=== PATIENT | male | born 1980 | race Caucasian/White ===

== ENCOUNTER 2018-01-10 07:52 | Inpatient (IN) | payer OTHER ==
[2018-01-10] VITALS (10 sets, daily range): BP systolic 104–137; BP diastolic 59–87; PULSE 66–92; TEMP 35.8–36.9; O2SAT 92–97; Ht 182.9 cm; Wt 109.5 kg
[~2018-01-10] VITALS: Ht 182.9 cm; Wt 109.5 kg
[~2018-01-10 07:52] MED LIST: PIPERACILL/TAZOBAC CONSULT ACTIVE SCH
[2018-01-10] MEDS ORDERED: ONDANSETRON INJ 2 MG/ML 2 ML VIAL IV STA (08:03)
[2018-01-10] MEDS ORDERED: HYDROmorphone INJ 1 MG/ML SYR IV STA ×2 (08:03→10:13)
[2018-01-10] MEDS ORDERED: SODIUM CHLORIDE 0.9% 1000ML 1,000 ML IV STA (08:03)
[2018-01-10] MEDS ORDERED: KETOROLAC TROMETHAMINE 30 MG/ML VIAL IV STA (08:03)
--- NOTE | 2018-01-10 08:10 | EMERGENCY ROOM VISIT NOTE ---
History Report prepared by Corie: Edwin Ho Under the Supervision of: Dr. Tyrone Jolley M.D. First contact with patient: 07:55 Chief Complaint: ABDOMINAL PAIN Stated Complaint: ACUTE ABD PAIN History of Present Illness The patient is a 37 year old male who presents to the Emergency Room with complaints of intermittent right lower quadrant abdominal pain since last night. The patient states that he is not nauseous and there is no pain in his back. He does not have any history of kidney stones. Source of History: patient, spouse/significant other Onset: Last night Position: abdomen (RLQ) Timing: intermittent Associated Symptoms: No nausea, No back pain Review of Systems See HPI for pertinent positives & negatives. A total of 10 systems reviewed and were otherwise negative. Past Medical & Surgical No significant past medical/surgical histories. Family History Cancer Diabetes mellitus Hypertension Social History Smoking Status: Never Smoker Marital Status: Housing Status: lives with family Occupation Status: employed Current/Historical Medications No Active Prescriptions or Reported Meds Allergies Coded Allergies: No Known Allergies (Unverified , 01/10/18) Physical Exam Vital Signs Date Time Temp Pulse Resp B/P (MAP) Pulse Ox O2 Delivery O2 Flow Rate FiO2 01/10/18 12:56 36.7 69 18 162/99 97 01/10/18 11:28 69 18 97 Room Air 01/10/18 10:32 68 17 01/10/18 10:27 78 13 01/10/18 10:22 81 17 01/10/18 10:19 70 01/10/18 09:40 36.7 76 18 162/99 97 Room Air 01/10/18 09:34 162/99 01/10/18 07:55 36.7 76 18 139/96 97 Room Air Physical Exam GENERAL: Awake, alert, well-appearing, in no acute distress HENT: Normocephalic, atraumatic. Oropharynx unremarkable. EYES: Normal conjunctiva. Sclera non-icteric. NECK: Supple. No nuchal rigidity. FROM. No JVD. RESPIRATORY: Clear to auscultation. CARDIAC: Regular rate, normal rhythm. Extremities warm and well perfused. Pulses equal. ABDOMEN: Soft, non-distended. No tenderness to palpation. No rebound or guarding. No masses. RECTAL: Deferred. MUSCULOSKELETAL: Chest examination reveals no tenderness. The back is symmetrical on inspection without obvious abnormality. There is no CVA tenderness to palpation. No joint edema. LOWER EXTREMITIES: Calves are equal size bilaterally and non-tender. No edema. No discoloration. NEURO: Normal sensorium. No sensory or motor deficits noted. SKIN: No rash or jaundice noted. Medical Decision & Procedures ER Provider Diagnostic Interpretation: Radiology results as stated below per my review and radiologist interpretation: ADDENDUM As reported in the findings, the small linear radiopaque density in the mid abdomen is metallic and is partially within the lumen and partially extraluminal. No surrounding inflammatory change, fluid, or free air. This is consistent with a foreign body. Given that the patient has no history of surgery, this is consistent with an ingested metallic foreign body. This measures 14 mm. This was discussed with the PA from the ER at 12:03 PM in the reading room. Electronically signed by: Jae Flynn M.D. 01/10/2018 12:03 PM Dictated Date/Time: 01/10/2018 12:02 PM ORIGINAL REPORT ABD/PELVIS IV CONTRAST ONLY CLINICAL HISTORY: 37 years-old Male presenting with Pt c/o RLQ abd pain. TECHNIQUE: Multidetector CT of the abdomen and pelvis was performed after the administration of intravenous contrast. IV contrast: 92 mL of Optiray 320. A dose lowering technique was used consistent with the principles of ALARA (as low as reasonably achievable). COMPARISON: Renal ultrasound and plain radiograph performed earlier the same day. CT DOSE (mGy.cm): The estimated cumulative dose is 669.79 mGy.cm. FINDINGS: Hr Analyst topogram: Unremarkable. Lung bases: Minimal basilar opacities, likely atelectasis. Normal heart size. No pericardial or pleural effusion. Liver: Congenital hypoplasia of the medial segments of the left hepatic lobe. Density suggestive of hepatic steatosis. No focal lesion. Patent hepatic vasculature. Biliary: No intrahepatic or extrahepatic biliary ductal dilatation. Normal gallbladder. Pancreas: Mild parenchymal atrophy. Spleen: Normal. Adrenal glands: Normal. Kidneys and ureters: Normal. No hydronephrosis. Bladder: Incompletely evaluated secondary to underdistention. Pelvic organs: Prostate and seminal vesicles normal. Bowel: Normal appendix. No bowel obstruction. Peritoneal cavity: No free fluid or intraperitoneal gas. Linear radiodensity in the mid abdomen (series 3 image 319), indeterminate and possibly postsurgical. Lymph nodes: No enlarged lymph nodes in the abdomen or pelvis. Vasculature: Aorta and IVC patent and normal in caliber. Abdominal wall: Small fat-containing umbilical hernia. Minimal infiltration could suggest strangulation. Musculoskeletal: Normal. IMPRESSION: 1. Hepatic steatosis. Correlate with liver function tests to exclude steatohepatitis as a cause for abdominal pain. 2. No evidence of appendicitis. 3. Small fat-containing umbilical hernia. Minimal infiltration could suggest strangulation. Correlate clinically. Electronically signed by: Jae Flynn M.D. 01/10/2018 11:09 AM KUB CLINICAL HISTORY: Right-sided flank pain COMPARISON STUDY: No previous studies for comparison. FINDINGS: There is no pathologic bowel dilatation. There are no calcifications suspicious for renal calculi. Pelvic basin calcifications likely represent phleboliths. A 7 mm opacity projected inferior to the right L1 transverse process, likely represents a summation with enteric contents. IMPRESSION: 1. No evidence of pathologic bowel dilatation 2. No definite urinary tract calculi identified on conventional radiographic imaging Electronically signed by: Luca Carmona M.D. 01/10/2018 8:41 AM Dictated Date/Time: 01/10/2018 8:40 AM (RENAL)RETROPERITON COMP CLINICAL HISTORY: 37 years-old Male presenting with Pt c/o RLQ abd pain. TECHNIQUE: Real-time grayscale and limited color Doppler ultrasound imaging of the kidneys and bladder was performed. COMPARISON: Plain radiograph performed earlier the same day. FINDINGS: Right kidney: Normal echogenicity of renal parenchyma. Right kidney measures 11.5 cm. No hydronephrosis. No convincing evidence of calculus or mass. Left kidney: Normal echogenicity of renal parenchyma. Left kidney measures 11.1 cm. No hydronephrosis. No convincing evidence of calculus or mass. Bladder: Mild circumferential bladder wall thickening likely due to underdistention. Bilateral ureteral jets present. Other: Hyperechogenicity of the liver suggests hepatic steatosis. IMPRESSION: 1. Normal renal ultrasound. No obstruction. 2. Hepatic steatosis. Correlate with liver function tests to exclude steatohepatitis as a cause for abdominal pain. Electronically signed by: Jae Flynn M.D. 01/10/2018 9:57 AM Dictated Date/Time: 01/10/2018 9:55 AM Laboratory Results 01/10/18 08:10 Red Blood Count 5.36, Mean Corpuscular Volume 80.2, Mean Corpuscular Hemoglobin 29.1, Mean Corpuscular Hemoglobin Concent 36.3, Mean Platelet Volume 9.2, Neutrophils (%) (Auto) 54.0, Lymphocytes (%) (Auto) 35.5, Monocytes (%) (Auto) 7.3, Eosinophils (%) (Auto) 2.0, Basophils (%) (Auto) 0.7, Neutrophils # (Auto) 3.99, Lymphocytes # (Auto) 2.62, Monocytes # (Auto) 0.54, Eosinophils # (Auto) 0.15, Basophils # (Auto) 0.05 01/10/18 08:10 Test 01/10/18 08:10 01/10/18 09:30 White Blood Count 7.39 K/uL (4.8-10.8) Red Blood Count 5.36 M/uL (4.7-6.1) Hemoglobin 15.6 g/dL (14.0-18.0) Hematocrit 43.0 % (42-52) Mean Corpuscular Volume 80.2 fL (80-100) Mean Corpuscular Hemoglobin 29.1 pg (25-34) Mean Corpuscular Hemoglobin Concent 36.3 g/dl (32-36) Platelet Count 247 K/uL (130-400) Mean Platelet Volume 9.2 fL (7.4-10.4) Neutrophils (%) (Auto) 54.0 % Lymphocytes (%) (Auto) 35.5 % Monocytes (%) (Auto) 7.3 % Eosinophils (%) (Auto) 2.0 % Basophils (%) (Auto) 0.7 % Neutrophils # (Auto) 3.99 K/uL (1.4-6.5) Lymphocytes # (Auto) 2.62 K/uL (1.2-3.4) Monocytes # (Auto) 0.54 K/uL (0.11-0.59) Eosinophils # (Auto) 0.15 K/uL (0-0.5) Basophils # (Auto) 0.05 K/uL (0-0.2) RDW Standard Deviation 40.0 fL (36.4-46.3) RDW Coefficient of Variation 13.7 % (11.5-14.5) Immature Granulocyte % (Auto) 0.5 % Immature Granulocyte # (Auto) 0.04 K/uL (0.00-0.02) Anion Gap 6.0 mmol/L (3-11) Est Creatinine Clear Calc Drug Dose 114.4 ml/min Estimated GFR () 95.7 Estimated GFR (Non- 82.6 BUN/Creatinine Ratio 19.7 (10-20) Calcium Level 9.0 mg/dl (8.5-10.1) Total Bilirubin 0.6 mg/dl (0.2-1) Direct Bilirubin 0.2 mg/dl (0-0.2) Aspartate Amino Transf (AST/SGOT) 69 U/L (15-37) Alanine Aminotransferase (ALT/SGPT) 147 U/L (12-78) Alkaline Phosphatase 54 U/L (45-117) Total Protein 7.9 gm/dl (6.4-8.2) Albumin 4.2 gm/dl (3.4-5.0) Lipase 115 U/L (73-393) Urine Color DK YELLOW Urine Appearance CLEAR (CLEAR) Urine pH 6.0 (4.5-7.5) Urine Specific [place] 1.035 (1.000-1.030) Urine Protein NEG (NEG) Urine Glucose (UA) NEG (NEG) Urine Ketones NEG (NEG) Urine Occult Blood NEG (NEG) Urine Nitrite NEG (NEG) Urine Bilirubin NEG (NEG) Urine Urobilinogen NEG (NEG) Urine Leukocyte Esterase NEG (NEG) Labs reviewed by ED physician. Medications Administered Medications (Trade) Dose Ordered Sig/Dash Route Start Time Stop Time Status Last Admin Dose Admin Ketorolac Tromethamine (Toradol Inj) 30 mg NOW STAT IV 01/10/18 08:03 01/10/18 08:06 DC 01/10/18 08:15 30 MG Sodium Chloride 1,000 ml @ 999 mls/hr Q1H1M STAT IV 01/10/18 08:03 01/10/18 09:03 DC 01/10/18 08:16 999 MLS/HR Hydromorphone HCl (Dilaudid Inj) 1 mg NOW STAT IV 01/10/18 08:03 01/10/18 08:06 DC 01/10/18 08:15 1 MG Ondansetron HCl (Zofran Inj) 4 mg NOW STAT IV 01/10/18 08:03 01/10/18 08:06 DC 01/10/18 08:14 4 MG Hydromorphone HCl (Dilaudid Inj) 1 mg NOW STAT IV 01/10/18 10:13 01/10/18 10:14 DC 01/10/18 10:22 1 MG Metoclopramide HCl (Reglan Inj) 10 mg NOW STAT IV 01/10/18 10:13 01/10/18 10:14 DC 01/10/18 10:22 10 MG Piperacillin Sod/ Tazobactam Sod 3.375 gm/Dextrose 115 ml @ 230 mls/hr NOW ONCE IV 01/10/18 12:45 01/10/18 13:14 01/10/18 12:52 230 MLS/HR ED Course 0754: Past medical records reviewed. The patient was evaluated in room B10. A complete history and physical examination was performed. 0803: Ordered Zofran 4 mg IV, Dilaudid 1 mg IV, Sodium chloride 1000 mL @ 999 mL /hr IV, Toradol 30 mg IV. 1000: The nursing staff told me that the patient is requesting something for pain at this time. 1013: Ordered Reglan 10 mg IV, Dilaudid 1 mg IV. 1218: I discussed the case with Dr. Velázquez - General Surgery. He will take the patient to the OR to remove the metal. Medical Decision Differential diagnosis: Etiologies such as appendicitis, diverticulitis, PUD, biliary pathology, UTI, pancreatitis, obstruction, mesenteric ischemia, aortic pathology, infections, inflammatory bowel disease, renal colic, as well as others were entertained. This is a 37-year-old male who presents emergency department complaining of right lower quadrant abdominal pain. Based on the nature of the patient's presentation and using shared medical decision making with both the patient and his we felt that the patient was most likely suffering from a kidney stone. He was originally sent for renal ultrasound as well as a KUB however this did not show any acute process. Based on this and again using shared medical decision making we sent the patient for CAT scan of the abdomen and pelvis. In the meanwhile the patient remains exquisitely tender in the right lower quadrant. He was given multiple doses of Dilaudid 3 as well as 30 mg of Toradol and Reglan. Based on the nature of the patient's pain I did discuss the case with the surgery team who agreed to come down and see the patient. They are concerned about a foreign body in the patient's intestine and will take him up to the operating room. Medication Reconcilliation Current Medication List: was personally reviewed by me Blood Pressure Screening Patient's blood pressure: Elevated blood pressure Blood pressure disposition: Elevated BP felt to be situational Consults Time Called: 1218 Consulting Physician: Dr. Velázquez - General Surgery Returned Call: 1218 I discussed the case with Dr. Eber Pineda. He will take the patient to the OR to remove the metal. Impression Primary Impression: Foreign body in intestine Scribe Attestation The scribe's documentation has been prepared under my direction and personally reviewed by me in its entirety. I confirm that the note above accurately reflects all work, treatment, procedures, and medical decision making performed by me. Departure Information Dispostion Being Evaluated By Surgeon Prescriptions No Active Prescriptions or Reported Meds Referrals Miguel Robins M.D. (PCP) Patient Instructions My [facility] Problem Qualifiers Primary Impression: Foreign body in intestine Encounter type: initial encounter Qualified Codes: T18.3XXA - Foreign body in small intestine, initial encounter
[2018-01-10 08:20] LABS: BASO % 0.7 %; BASO ABS # 0.05 K/uL (0-0.2); EOS ABS # 0.15 K/uL (0-0.5); HEMOGLOBIN 15.6 g/dL (14.0-18.0); IG# 0.04 K/uL (0.00-0.02); LYMPH % 35.5 %; LYMPH ABS # 2.62 K/uL (1.2-3.4); MEAN CELL VOLUME 80.2 fL (80-100); MEAN CORPUSCULAR HEMOGLOBIN 29.1 pg (25-34); MEAN CORPUSCULAR HGB CONC 36.3 g/dl (32-36); MEAN PLATELET VOLUME 9.2 fL (7.4-10.4); MONO % 7.3 %; MONO ABS # 0.54 K/uL (0.11-0.59); NEUT ABS # 3.99 K/uL (1.4-6.5); PLATELET COUNT 247 K/uL (130-400); RED CELL DISTRIBUTION WIDTH CV 13.7 % (11.5-14.5); WHITE BLOOD COUNT 7.39 K/uL (4.8-10.8)
[2018-01-10 08:39] LABS: ALBUMIN 4.2 gm/dl (3.4-5.0); CREATININE 1.13 mg/dl (0.60-1.40); POTASSIUM 4.3 mmol/L (3.5-5.1)
[2018-01-10 08:42] LABS: TOTAL PROTEIN 7.9 gm/dl (6.4-8.2)
--- NOTE | 2018-01-10 08:43 | DIAGNOSTIC IMAGING REPORT ---
KUB CLINICAL HISTORY: Right-sided flank pain COMPARISON STUDY: No previous studies for comparison. FINDINGS: There is no pathologic bowel dilatation. There are no calcifications suspicious for renal calculi. Pelvic basin calcifications likely represent phleboliths. A 7 mm opacity projected inferior to the right L1 transverse process, likely represents a summation with enteric contents. IMPRESSION: 1. No evidence of pathologic bowel dilatation 2. No definite urinary tract calculi identified on conventional radiographic imaging Electronically signed by: Luca Carmona M.D. 01/10/2018 8:41 AM Dictated Date/Time: 01/10/2018 8:40 AM
--- NOTE | 2018-01-10 09:58 | DIAGNOSTIC IMAGING REPORT ---
(RENAL)RETROPERITON COMP CLINICAL HISTORY: 37 years-old Male presenting with Pt c/o RLQ abd pain. TECHNIQUE: Real-time grayscale and limited color Doppler ultrasound imaging of the kidneys and bladder was performed. COMPARISON: Plain radiograph performed earlier the same day. FINDINGS: Right kidney: Normal echogenicity of renal parenchyma. Right kidney measures 11.5 cm. No hydronephrosis. No convincing evidence of calculus or mass. Left kidney: Normal echogenicity of renal parenchyma. Left kidney measures 11.1 cm. No hydronephrosis. No convincing evidence of calculus or mass. Bladder: Mild circumferential bladder wall thickening likely due to underdistention. Bilateral ureteral jets present. Other: Hyperechogenicity of the liver suggests hepatic steatosis. IMPRESSION: 1. Normal renal ultrasound. No obstruction. 2. Hepatic steatosis. Correlate with liver function tests to exclude steatohepatitis as a cause for abdominal pain. Electronically signed by: Jae Flynn M.D. 01/10/2018 9:57 AM Dictated Date/Time: 01/10/2018 9:55 AM
[2018-01-10] MEDS ORDERED: METOCLOPRAMIDE HCL INJ 5 MG/ML 2 ML VIAL IV STA (10:13)
[2018-01-10] MEDS ORDERED: OPTIRAY 320 IV PRN (10:30)
--- NOTE | 2018-01-10 11:10 | DIAGNOSTIC IMAGING REPORT ---
ADDENDUM As reported in the findings, the small linear radiopaque density in the mid abdomen is metallic and is partially within the lumen and partially extraluminal. No surrounding inflammatory change, fluid, or free air. This is consistent with a foreign body. Given that the patient has no history of surgery, this is consistent with an ingested metallic foreign body. This measures 14 mm. This was discussed with the PA from the ER at 12:03 PM in the reading room. Electronically signed by: aJe Flynn M.D. 01/10/2018 12:03 PM Dictated Date/Time: 01/10/2018 12:02 PM ORIGINAL REPORT ABD/PELVIS IV CONTRAST ONLY CLINICAL HISTORY: 37 years-old Male presenting with Pt c/o RLQ abd pain. TECHNIQUE: Multidetector CT of the abdomen and pelvis was performed after the administration of intravenous contrast. IV contrast: 92 mL of Optiray 320. A dose lowering technique was used consistent with the principles of ALARA (as low as reasonably achievable). COMPARISON: Renal ultrasound and plain radiograph performed earlier the same day. CT DOSE (mGy.cm): The estimated cumulative dose is 669.79 mGy.cm. FINDINGS: Chief Information Officer topogram: Unremarkable. Lung bases: Minimal basilar opacities, likely atelectasis. Normal heart size. No pericardial or pleural effusion. Liver: Congenital hypoplasia of the medial segments of the left hepatic lobe. Density suggestive of hepatic steatosis. No focal lesion. Patent hepatic vasculature. Biliary: No intrahepatic or extrahepatic biliary ductal dilatation. Normal gallbladder. Pancreas: Mild parenchymal atrophy. Spleen: Normal. Adrenal glands: Normal. Kidneys and ureters: Normal. No hydronephrosis. Bladder: Incompletely evaluated secondary to underdistention. Pelvic organs: Prostate and seminal vesicles normal. Bowel: Normal appendix. No bowel obstruction. Peritoneal cavity: No free fluid or intraperitoneal gas. Linear radiodensity in the mid abdomen (series 3 image 319), indeterminate and possibly postsurgical. Lymph nodes: No enlarged lymph nodes in the abdomen or pelvis. Vasculature: Aorta and IVC patent and normal in caliber. Abdominal wall: Small fat-containing umbilical hernia. Minimal infiltration could suggest strangulation. Musculoskeletal: Normal. IMPRESSION: 1. Hepatic steatosis. Correlate with liver function tests to exclude steatohepatitis as a cause for abdominal pain. 2. No evidence of appendicitis. 3. Small fat-containing umbilical hernia. Minimal infiltration could suggest strangulation. Correlate clinically. Electronically signed by: Jae Flynn M.D. 01/10/2018 11:09 AM Dictated Date/Time: 01/10/2018 10:54 AM
[2018-01-10] MEDS ORDERED: PIPERACILLIN/TAZOBACTAM 3.375 GM/100ML D5W IV STA (12:30)
[2018-01-10] MEDS ORDERED: MIDAZOLAM HCL 1 MG/ML 2ML VIAL ONE (12:38)
[2018-01-10] MEDS ORDERED: LIDOCAINE HCL 2% 2 ML VIAL (20MG/ML) ONE (12:38)
[2018-01-10] MEDS ORDERED: PROPOFOL IV EMULSION 10 MG/ML 20 ML VIAL ONE (12:38)
--- NOTE | 2018-01-10 12:38 | History and Physical ---
History & Physical Date & Time of Service: January 10, 2018 at 12:23 Chief Complaint: Acute Abd Pain Primary Care Physician: Norris Nina M.D.(PARMJIT) History of Present Illness 37y/o male with intermittent sharp right right sided abdominal pain that began last night. No N/V or fevers/chills. No previous abdominal pain, surgery or kidney stones. Linear density was seen on CT, he was grilling a few days ago and used a wire brush to clean the grill. Past Medical/Surgical History Medical history: no ongoing problems Surgical history: shoulder surgery Family History Cancer Diabetes mellitus Hypertension Social History Smoking Status: Never Smoker Marital Status: Occupational Status: employed Multi-Drug Resistant Organisms History of MDRO: No Allergies Coded Allergies: No Known Allergies (Unverified , 01/10/18) Home Medications No Active Prescriptions or Reported Meds Physical Exam Vital Signs Date Time Temp Pulse Resp B/P (MAP) Pulse Ox O2 Delivery O2 Flow Rate FiO2 01/10/18 11:28 69 18 97 Room Air 01/10/18 10:32 68 17 01/10/18 10:27 78 13 01/10/18 10:22 81 17 01/10/18 10:19 70 01/10/18 09:40 36.7 76 18 162/99 97 Room Air 01/10/18 09:34 162/99 01/10/18 07:55 36.7 76 18 139/96 97 Room Air General Appearance: WD/WN, no apparent distress Respiratory/Chest: normal breath sounds, no respiratory distress, no accessory muscle use Cardiovascular: regular rate, rhythm, no edema Abdomen/GI: soft, + tenderness (mild right sided just below and lateral to umbilicus), + pertinent finding (small umbilical hernia partially reducible) Neurologic/Psych: alert, normal mood/affect Skin: normal color, warm/dry Diagnostics Laboratory Results Results Past 24 Hours Test 01/10/18 08:10 01/10/18 09:30 Range/Units White Blood Count 7.39 4.8-10.8 K/uL Red Blood Count 5.36 4.7-6.1 M/uL Hemoglobin 15.6 14.0-18.0 g/dL Hematocrit 43.0 42-52 % Mean Corpuscular Volume 80.2 80-100 fL Mean Corpuscular Hemoglobin 29.1 25-34 pg Mean Corpuscular Hemoglobin Concent 36.3 32-36 g/dl Platelet Count 247 130-400 K/uL Mean Platelet Volume 9.2 7.4-10.4 fL Neutrophils (%) (Auto) 54.0 % Lymphocytes (%) (Auto) 35.5 % Monocytes (%) (Auto) 7.3 % Eosinophils (%) (Auto) 2.0 % Basophils (%) (Auto) 0.7 % Neutrophils # (Auto) 3.99 1.4-6.5 K/uL Lymphocytes # (Auto) 2.62 1.2-3.4 K/uL Monocytes # (Auto) 0.54 0.11-0.59 K/uL Eosinophils # (Auto) 0.15 0-0.5 K/uL Basophils # (Auto) 0.05 0-0.2 K/uL RDW Standard Deviation 40.0 36.4-46.3 fL RDW Coefficient of Variation 13.7 11.5-14.5 % Immature Granulocyte % (Auto) 0.5 % Immature Granulocyte # (Auto) 0.04 0.00-0.02 K/uL Sodium Level 139 136-145 mmol/L Potassium Level 4.3 3.5-5.1 mmol/L Chloride Level 107 98-107 mmol/L Carbon Dioxide Level 26 21-32 mmol/L Anion Gap 6.0 3-11 mmol/L Blood Urea Nitrogen 22 7-18 mg/dl Creatinine 1.13 0.60-1.40 mg/dl Est Creatinine Clear Calc Drug Dose 114.4 ml/min Estimated GFR () 95.7 Estimated GFR (Non- 82.6 BUN/Creatinine Ratio 19.7 10-20 Random Glucose 98 70-99 mg/dl Calcium Level 9.0 8.5-10.1 mg/dl Total Bilirubin 0.6 0.2-1 mg/dl Direct Bilirubin 0.2 0-0.2 mg/dl Aspartate Amino Transf (AST/SGOT) 69 15-37 U/L Alanine Aminotransferase (ALT/SGPT) 147 12-78 U/L Alkaline Phosphatase 54 45-117 U/L Total Protein 7.9 6.4-8.2 gm/dl Albumin 4.2 3.4-5.0 gm/dl Lipase 115 73-393 U/L Urine Color DK YELLOW Urine Appearance CLEAR CLEAR Urine pH 6.0 4.5-7.5 Urine Specific [place] 1.035 1.000-1.030 Urine Protein NEG NEG Urine Glucose (UA) NEG NEG Urine Ketones NEG NEG Urine Occult Blood NEG NEG Urine Nitrite NEG NEG Urine Bilirubin NEG NEG Urine Urobilinogen NEG NEG Urine Leukocyte Esterase NEG NEG Diagnostic Radiology ADDENDUM As reported in the findings, the small linear radiopaque density in the mid abdomen is metallic and is partially within the lumen and partially extraluminal. No surrounding inflammatory change, fluid, or free air. This is consistent with a foreign body. Given that the patient has no history of surgery, this is consistent with an ingested metallic foreign body. This measures 14 mm. This was discussed with the PA from the ER at 12:03 PM in the reading room. Electronically signed by: Jae Flynn M.D. 01/10/2018 12:03 PM Dictated Date/Time: 01/10/2018 12:02 PM ORIGINAL REPORT ABD/PELVIS IV CONTRAST ONLY CLINICAL HISTORY: 37 years-old Male presenting with Pt c/o RLQ abd pain. TECHNIQUE: Multidetector CT of the abdomen and pelvis was performed after the administration of intravenous contrast. IV contrast: 92 mL of Optiray 320. A dose lowering technique was used consistent with the principles of ALARA (as low as reasonably achievable). COMPARISON: Renal ultrasound and plain radiograph performed earlier the same day. CT DOSE (mGy.cm): The estimated cumulative dose is 669.79 mGy.cm. FINDINGS: Complex Human Resources Manager topogram: Unremarkable. Lung bases: Minimal basilar opacities, likely atelectasis. Normal heart size. No pericardial or pleural effusion. Liver: Congenital hypoplasia of the medial segments of the left hepatic lobe. Density suggestive of hepatic steatosis. No focal lesion. Patent hepatic vasculature. Biliary: No intrahepatic or extrahepatic biliary ductal dilatation. Normal gallbladder. Pancreas: Mild parenchymal atrophy. Spleen: Normal. Adrenal glands: Normal. Kidneys and ureters: Normal. No hydronephrosis. Bladder: Incompletely evaluated secondary to underdistention. Pelvic organs: Prostate and seminal vesicles normal. Bowel: Normal appendix. No bowel obstruction. Peritoneal cavity: No free fluid or intraperitoneal gas. Linear radiodensity in the mid abdomen (series 3 image 319), indeterminate and possibly postsurgical. Lymph nodes: No enlarged lymph nodes in the abdomen or pelvis. Vasculature: Aorta and IVC patent and normal in caliber. Abdominal wall: Small fat-containing umbilical hernia. Minimal infiltration could suggest strangulation. Musculoskeletal: Normal. IMPRESSION: 1. Hepatic steatosis. Correlate with liver function tests to exclude steatohepatitis as a cause for abdominal pain. 2. No evidence of appendicitis. 3. Small fat-containing umbilical hernia. Minimal infiltration could suggest strangulation. Correlate clinically. Electronically signed by: Jae Flynn M.D. 01/10/2018 11:09 AM Dictated Date/Time: 01/10/2018 10:54 AM Impression Assessment and Plan small bowel foreign body Patient was seen in the ED with Dr. Velázquez. Will plan for exploratory laparotomy, possible bowel resection for removal of foreign body.
[2018-01-10] MEDS ORDERED: FENTANYL CITRATE INJ 50 MCG/1 ML 2 ML VIAL ONE ×2 (12:39→13:50)
--- NOTE | 2018-01-10 12:40 | History and Physical: Surg Cnt ---
History & Physical Date January 10, 2018. Chief Complaint abdominal pain History of Present Illness The patient is a 37 year old male with complaints of abdominal pain found on CT w/ foreign body through small bowel c/w perforation Additional History Hepatic Disease: No Endocrine Disorder: No Kidney Disease: No Hypertension: No Heart Disease: No Allergies Coded Allergies: No Known Allergies (Unverified , 01/10/18) Home Medications No Active Prescriptions or Reported Meds Physical Examination Skin: warm/dry Eyes: sclerae normal Neck: supple Respiratory/Chest: no respiratory distress Cardiovascular: regular rate, rhythm Abdomen / GI: + pertinent finding (some infraumbilical tenderness) Extremities: normal inspection Neurologic/Psych: alert Diagnosis small bowel perforation from foreign body Plan of Treatment for abdominal exploration, repair of small bowel possible small bowel resection
[2018-01-10] MEDS ORDERED: ROCURONIUM BROMIDE 10 MG/ML 5 ML VIAL ONE ×3 (12:41→14:11)
[2018-01-10] MEDS ORDERED: DEXAMETHASONE SOD INJ 4 MG/ML VIAL ONE (12:43)
[2018-01-10] MEDS ORDERED: ONDANSETRON INJ 2 MG/ML 2 ML VIAL ONE (12:43)
[2018-01-10] MEDS ORDERED: PIPERACILL/TAZOBAC IV 3.375 GM in D5W 100 ML IV ONE (12:45)
[2018-01-10] MEDS ORDERED: BUPIVACAINE 0.5 % 5 MG/1 ML MPF 30ML VIAL ONE (13:02)
[2018-01-10] MEDS ORDERED: CEFOXITIN SOD 1 GM VIAL ONE ×2 (13:03→13:39)
[2018-01-10] MEDS ORDERED: GLYCOPYRROLATE INJ 0.2 MG/ML VIAL ONE ×2 (13:47→14:14)
[2018-01-10] MEDS ORDERED: NEOSTIGMINE METHYLSULFATE 5 MG/5 ML SYR ONE (13:47)
--- NOTE | 2018-01-10 14:31 | [facility] Operative Report ---
Operative Report Operative Date January 10, 2018. Pre-Operative Diagnosis small bowel perforation, umbilical hernia Post-Operative Diagnosis same as preop, foreign body Procedure(s) Performed Exploratory Laparotomy with Removal of Foreign Body, Repair of Small Bowel Performation, Repair Umbilical Hernia Surgeon Dr. Sher Velázquez Carving Machine Operator Surgeon(s) Severo Carrillo PA-C Estimated Blood Loss 20cc Findings wire causing distal small bowel perforation no enteric spillage Specimens Fresh Specimen: B.) Perforating Foreign Body Anesthesia Type General Complication(s) none Disposition Recovery Room / PACU I attest to the content of the Intraoperative Record and any orders documented therein. Any exceptions are noted below.
[2018-01-10] MEDS ORDERED: HYDROmorphone INJ 1 MG/ML SYR IV PRN (14:45)
[2018-01-10] MEDS ORDERED: ONDANSETRON INJ 2 MG/ML 2 ML VIAL IV PRN ×2 (14:45→15:00)
[2018-01-10] MEDS ORDERED: HYDROmorphone INJ 0.5 MG/0.5 ML SYR IV PRN ×2 (14:45→17:30)
[2018-01-10] MEDS ORDERED: PROMETHAZINE HCL INJ 25 MG in SODIUM CHLORIDE 0.9% 50ML 50 ML IV PRN (14:45)
[2018-01-10] MEDS: HYDROmorphone INJ 0.5 MG/0.5 ML SYR IV PRN ×8 (14:50→15:25)
[2018-01-10] MEDS ORDERED: HYDROmorphone INJ 2 MG/ML SYR/VIAL ONE (14:51)
[2018-01-10] MEDS ORDERED: LABETALOL HCL IV 5 MG/ML 20ML IV PRN (15:00)
[2018-01-10] MEDS ORDERED: EpHEDrine SULFATE INJ 50 MG/ML AMP IV PRN (15:00)
[2018-01-10] MEDS ORDERED: NALOXONE HCL 0.4 MG/1 ML VIAL/CARP IV PRN ×2 (15:00→18:15)
[2018-01-10] MEDS ORDERED: ATROPINE SULFATE 0.1 MG/ML 5ML SYR IV PRN (15:00)
[2018-01-10] MEDS ORDERED: FLUMAZENIL 0.1 MG/1 ML 10 ML VIAL IV PRN (15:00)
[2018-01-10] MEDS ORDERED: PROMETHAZINE HCL INJ 12.5 MG in SODIUM CHLORIDE 0.9% 50ML 50 ML IV PRN ×2 (15:00→15:15)
--- NOTE | 2018-01-10 15:36 | Anesthesiology Progress Note ---
Anesthesia Post Op Note Date & Time January 10, 2018 at 15:35 Vital Signs Pain Intensity: 6.0 Vital Signs Past 12 Hours Date Time Temp Pulse Resp B/P (MAP) Pulse Ox O2 Delivery O2 Flow Rate FiO2 01/10/18 15:25 64 16 117/93 98 Nasal Cannula 2 01/10/18 15:15 79 16 136/81 98 Nasal Cannula 2 01/10/18 15:05 74 16 132/93 98 Oxymask 10 01/10/18 14:55 74 16 132/64 98 Oxymask 10 01/10/18 14:45 36.0 83 16 129/96 95 Oxymask 10 01/10/18 12:56 36.7 69 18 162/99 97 01/10/18 11:28 69 18 97 Room Air 01/10/18 10:32 68 17 01/10/18 10:27 78 13 01/10/18 10:22 81 17 01/10/18 10:19 70 01/10/18 09:40 36.7 76 18 162/99 97 Room Air 01/10/18 09:34 162/99 01/10/18 07:55 36.7 76 18 139/96 97 Room Air Notes Mental Status: alert / awake / arousable, participated in evaluation Pt Amnestic to Procedure: Yes Nausea / Vomiting: adequately controlled Pain: adequately controlled Airway Patency, RR, SpO2: stable & adequate BP & HR: stable & adequate Hydration State: stable & adequate Anesthetic Complications: no major complications apparent
[2018-01-10] MEDS ORDERED: ACETAMINOPHEN IV 100 ML IV ONE (16:03)
--- NOTE | 2018-01-10 16:09 | OPERATIVE REPORT ---
DATE OF OPERATION: 01/10/2018 NAME OF OPERATION: Laparotomy with removal of foreign body from small bowel, repair of small bowel perforation, and umbilical hernia repair. PREOPERATIVE DIAGNOSES: Small bowel perforation and umbilical hernia. POSTOPERATIVE DIAGNOSES: Small bowel perforation and umbilical hernia. STAFF SURGEON: Sher Velázquez MD VENETIAN BLIND WASHER: Norris Carrillo PA-C FINDINGS: The patient had evidence on his CAT scan after presenting to the Emergency Room with severe abdominal pain of what appeared to be a wire perforating his small bowel. We did perform laparotomy with mobilization and debridement of his umbilical hernia, which was approximately 1 cm in diameter and then entered his abdominal cavity. The small bowel was traced, initially proximally and then distally, almost to the distal ileum and then finding the wire. My insurance administrative assistant actually saw the wire through the small bowel wall and then near the mesentery, the wire was protruding approximately 5 mm. Through the small bowel wall. There was no enteric spillage evident. ANESTHESIA: General anesthesia. DESCRIPTION OF PROCEDURE: The patient was brought in the operating room and placed on the operating table in supine position. Pneumatic stockings, orogastric tube were placed. His abdomen was prepped and draped in usual fashion. Incision was made around the umbilicus to the left and then just below the umbilicus. The patient had an umbilical hernia with a small amount of omentum and preperitoneal adipose tissue was debrided. The defect was approximately 1 cm. The fascia was then opened below this. At this point, I was able to identify the sigmoid colon and also the omentum. From the CT scan, it appeared that the small bowel just to the left and below the umbilicus was where the wire was, however, on tracing the small bowel, I ended up going slightly proximal and then distal. I had to go distal significant lengths down to the right lower quadrant toward the distal ileum finding the wire evident through the bowel wall and then near the mesentery. It was protruding approximately 5 mm. We removed the wire. There was a small kink in the wire. There was a pin hole in the small bowel. This was repaired using a full thickness 2-0 chromic suture and then imbricated with a seromuscular interrupted 3-0 silk suture. The site was irrigated. Small bowel placed back into the abdomen. Omentum brought down over the small bowel under the incision. The hernia defect was closed using interrupted #1 Ethibond suture. The peritoneum reapproximated using running #1 chromic suture. The fascia reapproximated using both running and interrupted #1 PDS suture. Subcutaneous tissue was irrigated with antibiotic solution. The umbilicus was reattached to the subcutaneous tissue. Subcutaneous tissue reapproximated using 2-0 plain suture and then the skin reapproximated using 4-0 nylon suture. Dressing applied and the patient transferred to recovery room in stable condition. As a note, my insurance administrative assistant helped with prepping, draping, hernia repair, exposure of the intra-abdominal contents, removal of the wire, repair of the small bowel, and closure of the wound. I attest to the content of the Intraoperative Record and any orders documented therein. Any exceptions are noted below. JACKELINE
[2018-01-10] MEDS: D5W AND 1/2NSS + 20MEQ KCL 1,000 ML IV SCH (16:27)
[2018-01-10] MEDS ORDERED: MoRPHine SULFATE 4 MG/ML 1 ML CARP\\VIAL IV PRN (17:30)
[2018-01-10] MEDS ORDERED: HYDROmorphone INJ 0.5 MG/0.5 ML SYR IV STA (17:40)
[2018-01-10] MEDS: PIPERACILL/TAZOBAC IV 3.375 GM in DEXTROSE 5% 100ML 100 ML IV SCH (17:59)
[2018-01-10] MEDS: SODIUM CHLORIDE 0.9% 1000ML 1,000 ML IV SCH (18:15)
[2018-01-10] MEDS: HYDROmorphone HCL 0.5MG/ML 50 ML CASSETTE IV PRN (19:57)
--- NOTE | 2018-01-10 21:42 | Medical Consult ---
Consultation Date of Consultation: January 10, 2018. Attending Physician: Sher Velázquez M.D. Reason for Consultation: Postoperative medical management History of Present Illness Patient is a pleasant 37-year-old male with no significant past medical history presenting with abdominal pain. He was in usual state of health until evening prior to admission when he started to experience right lower abdominal pain. Pain is sharp intermittent but progressive gradually overnight and worsened in the morning. This prompted consult to the ER, CAT scan showed a foreign body in the small intestine. He underwent exploratory laparotomy by Dr. Velázquez and metallic foreign body which looks like bristle from a steel brush was retrieved. Operative record shows that there is possible small perforation. On examination the patient was seen in Medical surgical floor. He was awake alert oriented 3, not in distress but has moderate pain which symptoms become severe over the surgical site. He denies having any nausea vomiting, fevers chills, chest pain, shortness of breath, palpitations dizziness. No flatus yet no bowel movement yet. Denies other symptoms Past Medical/Surgical History Medical Problems: (1) Foreign body in intestine Status: Acute Family History Cancer Diabetes mellitus Hypertension Social History Smoking Status: Never Smoker Marital Status: Housing Status: lives with family Occupation Status: employed Allergies Coded Allergies: No Known Allergies (Unverified , 01/10/18) Current Inpatient Medications Current Inpatient Medications Medications (Trade) Dose Ordered Sig/Dash Route Start Time Stop Time Status Last Admin Dose Admin Ioversol (Optiray 320) 100 ml UD PRN IV 01/10/18 10:30 01/14/18 10:29 Potassium Chloride/Dextrose/ Sod Cl 1,000 ml @ 100 mls/hr Q10H IV 01/10/18 16:30 02/09/18 16:29 01/10/18 16:27 100 MLS/HR Piperacillin Sod/ Tazobactam Sod 3.375 gm/Dextrose 115 ml @ 28.75 mls/ hr Q8H IV 01/10/18 18:00 01/20/18 17:59 01/10/18 17:59 28.75 MLS/HR Ondansetron HCl (Zofran Inj) 4 mg Q6H PRN IV 01/10/18 14:45 02/09/18 14:44 Miscellaneous Information (Consult) 1 ea UD N/A 01/10/18 00:00 02/10/18 23:59 No refill Acetaminophen 650 mg/Empty Bag 65 ml @ 260 mls/hr Q8H IV 01/11/18 01:00 02/10/18 02:59 Naloxone HCl (Narcan Inj) 0.1 mg Q5M PRN IV 01/10/18 18:15 01/24/18 18:14 Hydromorphone HCl (Dilaudid Nurse Practitioner Home Assessments) 25 mg PRN PRN IV 01/10/18 18:15 01/24/18 18:14 01/10/18 19:57 25 MG Sodium Chloride 1,000 ml @ 15 mls/hr Q24H IV 01/10/18 18:15 02/09/18 18:14 Review of Systems Constitutional- no fever; no weight loss Eyes- no acute visual changes ENT- no sinus drainage; no pharyngitis Pulmonary- no cough, no wheezing, no shortness of breath Cardiac- no chest pain, no palpitations, no orthopnea, no dependent edema GI-positive as noted above - no dysuria, no hematuria Musculoskeletal- no arthralgias, no myalgias Derm- no rashes, no new skin lesions, no changing skin lesions Hematologic- no unusual bruising, no unusual bleeding Lymphatics- no adenopathy Endocrine- no polyuria or polydipsia; no heat or cold intolerance Neuro- no headaches, no focal neurologic symptoms Psych- no anxiety, no depression Physical Exam Date Time Temp Pulse Resp B/P (MAP) Pulse Ox O2 Delivery O2 Flow Rate FiO2 01/10/18 20:58 36.9 92 18 113/72 (86) 92 Room Air 01/10/18 19:59 36.3 72 22 137/87 (104) 92 Room Air 01/10/18 18:40 36.0 78 18 114/72 (86) 92 Room Air 01/10/18 16:53 36.3 78 18 110/68 (82) 94 Nasal Cannula 1.0 01/10/18 16:22 35.8 77 18 132/76 (94) 95 Nasal Cannula 3.0 01/10/18 15:50 36.5 67 18 123/85 (98) 97 Room Air 2.0 01/10/18 15:35 36.2 64 16 140/93 98 Nasal Cannula 2 01/10/18 15:25 64 16 117/93 98 Nasal Cannula 2 01/10/18 15:15 79 16 136/81 98 Nasal Cannula 2 01/10/18 15:05 74 16 132/93 98 Oxymask 10 01/10/18 14:55 74 16 132/64 98 Oxymask 10 01/10/18 14:45 36.0 83 16 129/96 95 Oxymask 10 01/10/18 12:56 36.7 69 18 162/99 97 01/10/18 11:28 69 18 97 Room Air 01/10/18 10:32 68 17 01/10/18 10:27 78 13 01/10/18 10:22 81 17 01/10/18 10:19 70 01/10/18 09:40 36.7 76 18 162/99 97 Room Air 01/10/18 09:34 162/99 01/10/18 07:55 36.7 76 18 139/96 97 Room Air General-oriented 3, not in distress, speaking in sentences Head- atraumatic Eyes- PERRL, EOMI, anicteric ENT- oropharynx clear Neck- supple, no JVD, no adenopathy, no thyromegaly Lungs- clear breath sounds bilaterally, no rales wheezes Heart- regular rhythm; no murmur, no gallop, no rub appreciated Abdomen-hypoactive bowel sounds, with mild distention, surgical dressing in place with no bleeding or discharge, mild tenderness over the surgical site area Extremities- no pretibial edema, no calf tenderness; peripheral pulses intact Neuro- alert, oriented x 3; no gross focal motor or sensory deficits or any other neurologic deficits Skin- warm & dry Laboratory Results Last 24 Hours Test 01/10/18 08:10 01/10/18 09:30 White Blood Count 7.39 K/uL Red Blood Count 5.36 M/uL Hemoglobin 15.6 g/dL Hematocrit 43.0 % Mean Corpuscular Volume 80.2 fL Mean Corpuscular Hemoglobin 29.1 pg Mean Corpuscular Hemoglobin Concent 36.3 g/dl Platelet Count 247 K/uL Mean Platelet Volume 9.2 fL Neutrophils (%) (Auto) 54.0 % Lymphocytes (%) (Auto) 35.5 % Monocytes (%) (Auto) 7.3 % Eosinophils (%) (Auto) 2.0 % Basophils (%) (Auto) 0.7 % Neutrophils # (Auto) 3.99 K/uL Lymphocytes # (Auto) 2.62 K/uL Monocytes # (Auto) 0.54 K/uL Eosinophils # (Auto) 0.15 K/uL Basophils # (Auto) 0.05 K/uL RDW Standard Deviation 40.0 fL RDW Coefficient of Variation 13.7 % Immature Granulocyte % (Auto) 0.5 % Immature Granulocyte # (Auto) 0.04 K/uL Sodium Level 139 mmol/L Potassium Level 4.3 mmol/L Chloride Level 107 mmol/L Carbon Dioxide Level 26 mmol/L Anion Gap 6.0 mmol/L Blood Urea Nitrogen 22 mg/dl Creatinine 1.13 mg/dl Est Creatinine Clear Calc Drug Dose 114.4 ml/min Estimated GFR () 95.7 Estimated GFR (Non- 82.6 BUN/Creatinine Ratio 19.7 Random Glucose 98 mg/dl Calcium Level 9.0 mg/dl Total Bilirubin 0.6 mg/dl Direct Bilirubin 0.2 mg/dl Aspartate Amino Transf (AST/SGOT) 69 U/L Alanine Aminotransferase (ALT/SGPT) 147 U/L Alkaline Phosphatase 54 U/L Total Protein 7.9 gm/dl Albumin 4.2 gm/dl Lipase 115 U/L Urine Color DK YELLOW Urine Appearance CLEAR Urine pH 6.0 Urine Specific [place] 1.035 Urine Protein NEG Urine Glucose (UA) NEG Urine Ketones NEG Urine Occult Blood NEG Urine Nitrite NEG Urine Bilirubin NEG Urine Urobilinogen NEG Urine Leukocyte Esterase NEG Assessment & Plan FOREIGN BODY INGESTION S/P LAPAROTOMY, HERNIA REPAIR Stable postop day #0 Pain management discussed with Dr. Velázquez Agreed with Dilaudid as needed, Tylenol 1:00 IV Interventions evening discussed with patient's Dr. Watson To improve pain control, Dilaudid CUFF SETTER OVERLOCK pump was started Continued on IV Zosyn, IV fluids HEPATIC STEATOSIS Monitor LFT daily Thank you for this consultation. We will follow the patient with you during their hospital stay. You can reach a member of the [facility] Hospitalist Team 20/03 via pager @ .
[2018-01-11] MEDS: ACETAMINOPHEN IV 650 MG in EMPTY BAG 0 ML IV SCH ×4 (00:36→23:58)
[2018-01-11] MEDS: PIPERACILL/TAZOBAC IV 3.375 GM in DEXTROSE 5% 100ML 100 ML IV SCH ×3 (01:42→17:54)
[2018-01-11] MEDS ORDERED: ACETAMINOPHEN IV 650 MG in EMPTY BAG 0 ML IV SCH (03:00)
[2018-01-11] MEDS: D5W AND 1/2NSS + 20MEQ KCL 1,000 ML IV SCH (03:04)
[2018-01-11 04:06] VITALS: BP 119/67; PULSE 70; TEMP 36.4; O2SAT 93
[2018-01-11] MEDS ORDERED: KETOROLAC TROMETHAMINE 30 MG/ML VIAL IV ONE (04:11)
[2018-01-11] MEDS ORDERED: KETOROLAC TROMETHAMINE 30 MG/ML VIAL IV PRN (04:15)
[2018-01-11] MEDS ORDERED: MoRPHine SULFATE 4 MG/ML 1 ML CARP\\VIAL IV PRN (04:15)
[2018-01-11 05:41] LABS: HEMOGLOBIN 14.3 g/dL (14.0-18.0); MEAN CELL VOLUME 81.1 fL (80-100); MEAN CORPUSCULAR HGB CONC 35.8 g/dl (32-36); MEAN PLATELET VOLUME 9.1 fL (7.4-10.4); PLATELET COUNT 272 K/uL (130-400); RED CELL DISTRIBUTION WIDTH CV 13.7 % (11.5-14.5); RED CELL DISTRIBUTION WIDTH SD 41.1 fL (36.4-46.3); WHITE BLOOD COUNT 14.06 K/uL (4.8-10.8)
[2018-01-11 06:10] LABS: ALBUMIN 3.7 gm/dl (3.4-5.0); CALCIUM 8.1 mg/dl (8.5-10.1); CREATININE 1.18 mg/dl (0.60-1.40); PHOSPHORUS 4.5 mg/dl (2.5-4.9); POTASSIUM 4.7 mmol/L (3.5-5.1); TOTAL PROTEIN 7.1 gm/dl (6.4-8.2)
--- NOTE | 2018-01-11 06:15 | Surgery Progress Note ---
Surgery Progress Note Date of Service January 11, 2018. Subjective pain- has MOLDING PRESS OPERATOR- overall vitals stable Objective Vital Signs: Date Time Temp Pulse Resp B/P (MAP) Pulse Ox O2 Delivery O2 Flow Rate FiO2 01/11/18 04:06 36.4 70 16 119/67 (84) 93 Room Air 01/10/18 23:56 36.5 66 16 104/59 (74) 94 Room Air 01/10/18 22:59 75 18 118/77 (91) 93 Room Air 01/10/18 22:30 Room Air 01/10/18 22:00 36.4 77 18 132/78 (96) 92 Room Air 01/10/18 20:58 36.9 92 18 113/72 (86) 92 Room Air 01/10/18 19:59 36.3 72 22 137/87 (104) 92 Room Air 01/10/18 18:40 36.0 78 18 114/72 (86) 92 Room Air 01/10/18 16:53 36.3 78 18 110/68 (82) 94 Nasal Cannula 1.0 01/10/18 16:22 35.8 77 18 132/76 (94) 95 Nasal Cannula 3.0 01/10/18 15:50 Nasal Cannula 2.0 01/10/18 15:50 Nasal Cannula 2.0 01/10/18 15:50 36.5 67 18 123/85 (98) 97 Room Air 2.0 01/10/18 15:50 Nasal Cannula 2.0 01/10/18 15:35 36.2 64 16 140/93 98 Nasal Cannula 2 01/10/18 15:25 64 16 117/93 98 Nasal Cannula 2 01/10/18 15:15 79 16 136/81 98 Nasal Cannula 2 01/10/18 15:05 74 16 132/93 98 Oxymask 10 01/10/18 14:55 74 16 132/64 98 Oxymask 10 01/10/18 14:45 36.0 83 16 129/96 95 Oxymask 10 01/10/18 12:56 36.7 69 18 162/99 97 01/10/18 11:28 69 18 97 Room Air 01/10/18 10:32 68 17 01/10/18 10:27 78 13 01/10/18 10:22 81 17 01/10/18 10:19 70 01/10/18 09:40 36.7 76 18 162/99 97 Room Air 01/10/18 09:34 162/99 01/10/18 07:55 36.7 76 18 139/96 97 Room Air General Appearance: no apparent distress Respiratory/Chest: no respiratory distress Abdomen: soft (decreased bowel sounds) Incision(s): intact Laboratory Results: Results Past 24 Hours Test 01/10/18 08:10 01/10/18 09:30 01/11/18 05:28 Range/Units White Blood Count 7.39 14.06 4.8-10.8 K/uL Red Blood Count 5.36 4.93 4.7-6.1 M/uL Hemoglobin 15.6 14.3 14.0-18.0 g/dL Hematocrit 43.0 40.0 42-52 % Mean Corpuscular Volume 80.2 81.1 80-100 fL Mean Corpuscular Hemoglobin 29.1 29.0 25-34 pg Mean Corpuscular Hemoglobin Concent 36.3 35.8 32-36 g/dl Platelet Count 247 272 130-400 K/uL Mean Platelet Volume 9.2 9.1 7.4-10.4 fL Neutrophils (%) (Auto) 54.0 % Lymphocytes (%) (Auto) 35.5 % Monocytes (%) (Auto) 7.3 % Eosinophils (%) (Auto) 2.0 % Basophils (%) (Auto) 0.7 % Neutrophils # (Auto) 3.99 1.4-6.5 K/uL Lymphocytes # (Auto) 2.62 1.2-3.4 K/uL Monocytes # (Auto) 0.54 0.11-0.59 K/uL Eosinophils # (Auto) 0.15 0-0.5 K/uL Basophils # (Auto) 0.05 0-0.2 K/uL RDW Standard Deviation 40.0 41.1 36.4-46.3 fL RDW Coefficient of Variation 13.7 13.7 11.5-14.5 % Immature Granulocyte % (Auto) 0.5 % Immature Granulocyte # (Auto) 0.04 0.00-0.02 K/uL Sodium Level 139 135 136-145 mmol/L Potassium Level 4.3 4.7 3.5-5.1 mmol/L Chloride Level 107 104 98-107 mmol/L Carbon Dioxide Level 26 25 21-32 mmol/L Anion Gap 6.0 7.0 3-11 mmol/L Blood Urea Nitrogen 22 20 7-18 mg/dl Creatinine 1.13 1.18 0.60-1.40 mg/dl Est Creatinine Clear Calc Drug Dose 114.4 109.6 ml/min Estimated GFR () 95.7 90.8 Estimated GFR (Non- 82.6 78.4 BUN/Creatinine Ratio 19.7 17.3 10-20 Random Glucose 98 121 70-99 mg/dl Calcium Level 9.0 8.1 8.5-10.1 mg/dl Total Bilirubin 0.6 0.7 0.2-1 mg/dl Direct Bilirubin 0.2 0.2 0-0.2 mg/dl Aspartate Amino Transf (AST/SGOT) 69 46 15-37 U/L Alanine Aminotransferase (ALT/SGPT) 147 123 12-78 U/L Alkaline Phosphatase 54 50 45-117 U/L Total Protein 7.9 7.1 6.4-8.2 gm/dl Albumin 4.2 3.7 3.4-5.0 gm/dl Lipase 115 73-393 U/L Urine Color DK YELLOW Urine Appearance CLEAR CLEAR Urine pH 6.0 4.5-7.5 Urine Specific [place] 1.035 1.000-1.030 Urine Protein NEG NEG Urine Glucose (UA) NEG NEG Urine Ketones NEG NEG Urine Occult Blood NEG NEG Urine Nitrite NEG NEG Urine Bilirubin NEG NEG Urine Urobilinogen NEG NEG Urine Leukocyte Esterase NEG NEG Phosphorus Level 4.5 2.5-4.9 mg/dl Magnesium Level 1.9 1.8-2.4 mg/dl Assessment & Plan 01/11/18- s/p laparotomy, removal wire foreign body from perforated small bowel w/ repair. Will increase dilaudid MOLDING PRESS OPERATOR, add Toradol q 6 hrs around the clock, d/c Morphine (will cause worse ileus) Sips only- cannot be in paulino to adv diet. Order binder
[2018-01-11] MEDS: HYDROmorphone HCL 0.5MG/ML 50 ML CASSETTE IV PRN ×3 (06:57→23:02)
[2018-01-11] MEDS: D5W AND NSS 1,000 ML IV SCH ×2 (07:16→20:30)
[2018-01-11 07:40] VITALS: BP 128/84; PULSE 65; TEMP 36.4; O2SAT 95
--- NOTE | 2018-01-11 07:49 | Anesthesiology Progress Note ---
Anesthesia Post Op Note Date & Time January 11, 2018 at 07:49 Vital Signs Pain Intensity: 0.0 Vital Signs Past 12 Hours Date Time Temp Pulse Resp B/P (MAP) Pulse Ox O2 Delivery O2 Flow Rate FiO2 01/11/18 07:40 36.4 65 19 128/84 (99) 95 Room Air 01/11/18 07:20 Room Air 01/11/18 04:06 36.4 70 16 119/67 (84) 93 Room Air 01/10/18 23:56 36.5 66 16 104/59 (74) 94 Room Air 01/10/18 22:59 75 18 118/77 (91) 93 Room Air 01/10/18 22:30 Room Air 01/10/18 22:00 36.4 77 18 132/78 (96) 92 Room Air 01/10/18 20:58 36.9 92 18 113/72 (86) 92 Room Air 01/10/18 19:59 36.3 72 22 137/87 (104) 92 Room Air Notes Mental Status: alert / awake / arousable, participated in evaluation Pt Amnestic to Procedure: Yes Nausea / Vomiting: adequately controlled Pain: adequately controlled Airway Patency, RR, SpO2: stable & adequate BP & HR: stable & adequate Hydration State: stable & adequate Anesthetic Complications: no major complications apparent
[2018-01-11] MEDS: KETOROLAC TROMETHAMINE 30 MG/ML VIAL IV. SCH ×3 (10:33→21:57)
[2018-01-11 10:49] VITALS: BP 120/79; PULSE 67; TEMP 36.5; O2SAT 94
[2018-01-11] MEDS ORDERED: PANTOprazole INJ 40 MG in SYRINGE 0 ML IV ONE (13:30)
[2018-01-11 15:31] VITALS: BP 110/74; PULSE 61; TEMP 36.5; O2SAT 91
[2018-01-11] MEDS: SODIUM CHLORIDE 0.9% 1000ML 1,000 ML IV SCH (17:12)
[2018-01-11 20:03] VITALS: BP 151/89; PULSE 71; TEMP 36.9; O2SAT 93
[2018-01-11] MEDS: PANTOprazole INJ 40 MG in SYRINGE 0 ML IV SCH (20:32)
[2018-01-11 22:58] VITALS: BP 132/83; PULSE 67; TEMP 36.4; O2SAT 92
--- NOTE | 2018-01-11 23:14 | Progress Note ---
Medicine Progress Note Date & Time of Visit: January 11, 2018 at 23:05. Subjective seen resting in bed, appears more comfortable in good spirits pain over surgical site improved after DISTRICT LOSS PREVENTION MANAGER pump adjusted has heartburn no chest pain, dyspnea, palpitations, dizziness no other symptoms Objective Last 8 Hrs Date Time Temp Pulse Resp B/P (MAP) Pulse Ox O2 Delivery O2 Flow Rate FiO2 01/11/18 20:03 36.9 71 16 151/89 (109) 93 Room Air 01/11/18 19:30 Room Air 01/11/18 15:31 36.5 61 16 110/74 (86) 91 Room Air Physical Exam: General- oriented x 3, not in distress Eyes- anicteric Neck- supple, no JVD Lungs- clear breath sounds bilaterally Heart- regular rhythm; no murmur, normal rate Abdomen- (+) dressing in place, clean (+) normoactive bowel sounds, soft, nontender Extremities- no pretibial edema, no calf tenderness Neuro- alert, oriented x 3;no gross focal deficits Laboratory Results: Last 24 Hours Test 01/11/18 05:28 White Blood Count 14.06 K/uL Red Blood Count 4.93 M/uL Hemoglobin 14.3 g/dL Hematocrit 40.0 % Mean Corpuscular Volume 81.1 fL Mean Corpuscular Hemoglobin 29.0 pg Mean Corpuscular Hemoglobin Concent 35.8 g/dl RDW Standard Deviation 41.1 fL RDW Coefficient of Variation 13.7 % Platelet Count 272 K/uL Mean Platelet Volume 9.1 fL Sodium Level 135 mmol/L Potassium Level 4.7 mmol/L Chloride Level 104 mmol/L Carbon Dioxide Level 25 mmol/L Anion Gap 7.0 mmol/L Blood Urea Nitrogen 20 mg/dl Creatinine 1.18 mg/dl Est Creatinine Clear Calc Drug Dose 109.6 ml/min Estimated GFR () 90.8 Estimated GFR (Non- 78.4 BUN/Creatinine Ratio 17.3 Random Glucose 121 mg/dl Calcium Level 8.1 mg/dl Phosphorus Level 4.5 mg/dl Magnesium Level 1.9 mg/dl Total Bilirubin 0.7 mg/dl Direct Bilirubin 0.2 mg/dl Aspartate Amino Transf (AST/SGOT) 46 U/L Alanine Aminotransferase (ALT/SGPT) 123 U/L Alkaline Phosphatase 50 U/L Total Protein 7.1 gm/dl Albumin 3.7 gm/dl Assessment & Plan FOREIGN BODY INGESTION S/P LAPAROTOMY, HERNIA REPAIR stable overall pain improving- continue Dilaudid DISTRICT LOSS PREVENTION MANAGER, Ofirmev, Toradol continue IV Zosyn, IV fluids REFLUX SYMPTOMS Protonix IV BID ordered HEPATIC STEATOSIS LFTs improving monitor Thank you for this consultation. We will follow the patient with you during their hospital stay. You can reach a member of the [facility] Hospitalist Team 20/03 via pager @ [phone]. Current Inpatient Medications: Current Inpatient Medications Medications (Trade) Dose Ordered Sig/Dash Route Start Time Stop Time Status Last Admin Dose Admin Ioversol (Optiray 320) 100 ml UD PRN IV 01/10/18 10:30 01/14/18 10:29 Piperacillin Sod/ Tazobactam Sod 3.375 gm/Dextrose 115 ml @ 28.75 mls/ hr Q8H IV 01/10/18 18:00 01/20/18 17:59 01/11/18 17:54 28.75 MLS/HR Ondansetron HCl (Zofran Inj) 4 mg Q6H PRN IV 01/10/18 14:45 02/09/18 14:44 Miscellaneous Information (Consult) 1 ea UD N/A 01/10/18 00:00 02/10/18 23:59 No refill Acetaminophen 650 mg/Empty Bag 65 ml @ 260 mls/hr Q8H IV 01/11/18 01:00 02/10/18 02:59 01/11/18 16:47 260 MLS/HR Naloxone HCl (Narcan Inj) 0.1 mg Q5M PRN IV 01/10/18 18:15 01/24/18 18:14 Hydromorphone HCl (Dilaudid Government Relations Manager) 25 mg PRN PRN IV 01/10/18 18:15 01/24/18 18:14 01/11/18 23:02 25 MG Sodium Chloride 1,000 ml @ 15 mls/hr Q24H IV 01/10/18 18:15 02/09/18 18:14 Ketorolac Tromethamine (Toradol Inj) 30 mg Q6H IV. 01/11/18 10:00 01/16/18 09:59 01/11/18 21:57 30 MG Dextrose/Sodium Chloride 1,000 ml @ 75 mls/hr [id number] IV 01/11/18 06:30 02/10/18 06:29 01/11/18 20:30 75 MLS/HR Pantoprazole Sodium 40 mg/ Syringe 10 ml @ 5 mls/min DAILY@09,21 IV 01/11/18 21:00 02/10/18 20:59 01/11/18 20:32 5 MLS/MIN
[2018-01-12] MEDS: HYDROmorphone HCL 0.5MG/ML 50 ML CASSETTE IV PRN ×4 (01:29→22:52)
[2018-01-12] MEDS: PIPERACILL/TAZOBAC IV 3.375 GM in DEXTROSE 5% 100ML 100 ML IV SCH ×3 (01:37→18:31)
[2018-01-12] MEDS: KETOROLAC TROMETHAMINE 30 MG/ML VIAL IV. SCH ×4 (03:38→21:45)
[2018-01-12 04:05] VITALS: BP 139/93; PULSE 61; TEMP 36.7; O2SAT 97
[2018-01-12 07:22] VITALS: BP 127/84; PULSE 73; TEMP 36.5; O2SAT 97
--- NOTE | 2018-01-12 08:24 | Surgery Progress Note ---
Surgery Progress Note Date of Service January 12, 2018. Subjective improving- + flatus no bm yet Objective Vital Signs: Date Time Temp Pulse Resp B/P (MAP) Pulse Ox O2 Delivery O2 Flow Rate FiO2 01/12/18 07:55 Room Air 01/12/18 07:22 36.5 73 17 127/84 (98) 97 Room Air 01/12/18 04:05 36.7 61 15 139/93 (108) 97 Nasal Cannula 2.0 01/12/18 00:00 Room Air 01/11/18 22:58 36.4 67 16 132/83 (99) 92 Room Air 01/11/18 20:03 36.9 71 16 151/89 (109) 93 Room Air 01/11/18 19:30 Room Air 01/11/18 15:31 36.5 61 16 110/74 (86) 91 Room Air 01/11/18 10:49 36.5 67 16 120/79 (93) 94 Room Air General Appearance: no apparent distress Respiratory/Chest: no respiratory distress Abdomen: normal bowel sounds, + pertinent finding (vigorous bowel sounds) Assessment & Plan 01/12/18- improving- adv to full liquids, add Percocet, cont LASTER HAND for now. may need 1-2 more days for bowel function Dr Blackwood covering over weekend. d/c info in EMR 01/11/18- s/p laparotomy, removal wire foreign body from perforated small bowel w/ repair. Will increase dilaudid LASTER HAND, add Toradol q 6 hrs around the clock, d/c Morphine (will cause worse ileus) Sips only- cannot be in paulino to adv diet. Order binder 01/11/18- s/p laparotomy, removal wire foreign body from perforated small bowel w/ repair. Will increase dilaudid LASTER HAND, add Toradol q 6 hrs around the clock, d/c Morphine (will cause worse ileus) Sips only- cannot be in paulino to adv diet. Order binder
[2018-01-12] MEDS ORDERED: OXYC-57 PO (08:30)
[2018-01-12] MEDS ORDERED: AMOX875T PO (08:30)
--- NOTE | 2018-01-12 08:35 | Discharge Instructions ---
Discharge Instructions Date of Service January 12, 2018. Admission Reason for Admission: Foreign Body In Intestine, Perforation Of Small Discharge Discharge Diagnosis / Problem: small bowel perforation Discharge Goals Goal(s): Decrease discomfort, Improve function, Improve disease control Activity Recommendations Activity Limitations: as noted below Lifting Limitations: no more than 25 pounds (for 4 weeks) Exercise/Sports Limitations: until after follow-up appointment May Resume Sexual Activity: when tolerated Shower/Bathe: tomorrow Driving or Machine Use: wait 1 week . Instructions / Follow-Up Instructions / Follow-Up SPECIAL CARE INSTRUCTIONS: * Cover incisions and change daily for comfort/drainage. Avoid constipation- may use Senokot S twice daily and Mineral oil 1 Tbsp 2- 3 times per week as needed- Do Not need to take if bowels moving daily * May use ibuprofen for pain as tolerated. * Expect some swelling and bruising. Call your doctor if: * Temperature above 101 degrees * Pain not relieved by pain medicine ordered * There is increased drainage or redness from any incision * You have any unanswered questions or concerns [phone]. FOLLOW UP VISIT: If not already scheduled, please call the office for a follow-up visit. for this week- some suture removal OFFICE PHONE NUMBER: Dr. Velázquez Office Current Hospital Diet Patient's current hospital diet: Full Liquid Diet Discharge Diet Recommended Diet: Regular Diet Procedures Procedures Performed: Exploratory Laparotomy with Removal of Foreign Body, Repair of Small Bowel Performation, Repair Umbilical Hernia Pending Studies Studies pending at discharge: no Medical Emergencies . Who to Call and When: Medical Emergencies: If at any time you feel your situation is an emergency, please call 911 immediately. . Non-Emergent Contact Non-Emergency issues call your: Primary Care Provider, Surgeon . "Provider Documentation" section prepared by Sher Velázquez. .
[2018-01-12] MEDS: OXYCODONE/ACETAMINOPHEN 5-325 TAB PO PRN ×5 (08:45→21:24)
[2018-01-12] MEDS: D5W AND NSS 1,000 ML IV SCH (08:47)
[2018-01-12] MEDS: PANTOprazole INJ 40 MG in SYRINGE 0 ML IV SCH ×2 (08:48→21:24)
[2018-01-12] MEDS: ACETAMINOPHEN IV 650 MG in EMPTY BAG 0 ML IV SCH ×2 (09:00→17:00)
[2018-01-12] MEDS ORDERED: PANTOprazole INJ 40 MG in SYRINGE 0 ML IV SCH (11:00)
[2018-01-12] MEDS: ENOXAPARIN 40 MG/0.4 ML SYR SQ SCH (11:29)
--- NOTE | 2018-01-12 14:02 | Progress Note ---
Medicine Progress Note Date & Time of Visit: January 12, 2018 at 13:59. Subjective seen resting in bed, comfortable states he feels improved compared to yesterday able to ambulate more requiring less PRN analgesics (+) flatus, no BM yet tolerating clears no chills denies chest pain, dyspnea, palpitations, dizziness no other symptoms Objective Last 8 Hrs Date Time Temp Pulse Resp B/P (MAP) Pulse Ox O2 Delivery O2 Flow Rate FiO2 01/12/18 07:55 Room Air 01/12/18 07:22 36.5 73 17 127/84 (98) 97 Room Air Physical Exam: General- oriented x 3, not in distress Eyes- anicteric Neck- no JVD Lungs- clear breath sounds bilaterally, no rales, no wheezes Heart- regular rhythm; no murmur, normal rate Abdomen- (+) dressing in place, clean sutures intact, wound well opposed no bleeding/discharge (+) normoactive bowel sounds, soft, nontender Extremities- no pretibial edema, no calf tenderness Neuro- alert, oriented x 3;no gross focal deficits Laboratory Results: Last 24 Hours Test 01/12/18 08:56 01/12/18 13:46 Prothrombin Time 10.7 SECONDS Prothromb Time International Ratio 1.0 Assessment & Plan FOREIGN BODY INGESTION S/P LAPAROTOMY, HERNIA REPAIR remains stable diet advanced to full liquid pain improving- 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 We will follow the patient with you during their hospital stay. You can reach a member of the [facility] Hospitalist Team 20/03 via pager @ . Current Inpatient Medications: Current Inpatient Medications Medications (Trade) Dose Ordered Sig/Dash Route Start Time Stop Time Status Last Admin Dose Admin Ioversol (Optiray 320) 100 ml UD PRN IV 01/10/18 10:30 01/14/18 10:29 Piperacillin Sod/ Tazobactam Sod 3.375 gm/Dextrose 115 ml @ 28.75 mls/ hr Q8H IV 01/10/18 18:00 01/20/18 17:59 01/12/18 09:55 28.75 MLS/HR Ondansetron HCl (Zofran Inj) 4 mg Q6H PRN IV 01/10/18 14:45 02/09/18 14:44 Miscellaneous Information (Consult) 1 ea UD N/A 01/10/18 00:00 02/10/18 23:59 No refill Acetaminophen 650 mg/Empty Bag 65 ml @ 260 mls/hr Q8H IV 01/11/18 01:00 02/10/18 02:59 01/11/18 23:58 260 MLS/HR Naloxone HCl (Narcan Inj) 0.1 mg Q5M PRN IV 01/10/18 18:15 01/24/18 18:14 Hydromorphone HCl (Dilaudid Head Turning Machine Operator) 25 mg PRN PRN IV 01/10/18 18:15 01/24/18 18:14 01/12/18 07:00 25 MG Sodium Chloride 1,000 ml @ 15 mls/hr Q24H IV 01/10/18 18:15 02/09/18 18:14 Ketorolac Tromethamine (Toradol Inj) 30 mg Q6H IV. 01/11/18 10:00 01/16/18 09:59 01/12/18 09:55 30 MG Dextrose/Sodium Chloride 1,000 ml @ 75 mls/hr [id number] IV 01/11/18 06:30 02/10/18 06:29 01/12/18 08:47 75 MLS/HR Pantoprazole Sodium 40 mg/ Syringe 10 ml @ 5 mls/min DAILY@,21 IV 01/11/18 21:00 02/10/18 20:59 01/12/18 08:48 5 MLS/MIN Oxycodone/ Acetaminophen (Percocet 5-325mg Tab) 1 tab Q4H PRN PO 01/12/18 08:30 01/26/18 08:29 01/12/18 09:09 1 TAB Oxycodone/ Acetaminophen (Percocet 5-325mg Tab) 2 tab Q4H PRN PO 01/12/18 08:30 01/26/18 08:29 01/12/18 13:00 2 TAB Enoxaparin Sodium (Lovenox Inj) 40 mg QAM SQ 01/12/18 11:00 02/11/18 10:59 01/12/18 11:29 40 MG
[2018-01-12 14:48] LABS: ALBUMIN 3.4 gm/dl (3.4-5.0); CALCIUM 8.1 mg/dl (8.5-10.1); CREATININE 1.24 mg/dl (0.60-1.40); POTASSIUM 3.6 mmol/L (3.5-5.1)
[2018-01-12 14:56] LABS: TOTAL PROTEIN 6.5 gm/dl (6.4-8.2)
[2018-01-12 15:13] VITALS: BP 138/86; PULSE 72; TEMP 36.6; O2SAT 95
[2018-01-12] MEDS: SODIUM CHLORIDE 0.9% 1000ML 1,000 ML IV SCH (18:35)
[2018-01-12 22:51] VITALS: BP 118/84; PULSE 70; TEMP 36.7; O2SAT 95
[2018-01-13] MEDS: ACETAMINOPHEN IV 650 MG in EMPTY BAG 0 ML IV SCH ×2 (00:04→08:14)
[2018-01-13] MEDS: OXYCODONE/ACETAMINOPHEN 5-325 TAB PO PRN ×5 (01:21→21:24)
[2018-01-13] MEDS: PIPERACILL/TAZOBAC IV 3.375 GM in DEXTROSE 5% 100ML 100 ML IV SCH ×3 (01:22→18:18)
[2018-01-13] MEDS: KETOROLAC TROMETHAMINE 30 MG/ML VIAL IV. SCH ×2 (03:57→10:06)
[2018-01-13 04:10] VITALS: BP 128/85; PULSE 57; TEMP 37.2; O2SAT 95
[2018-01-13 06:18] LABS: ALBUMIN 3.2 gm/dl (3.4-5.0); CALCIUM 8.2 mg/dl (8.5-10.1); CREATININE 1.11 mg/dl (0.60-1.40); POTASSIUM 4.1 mmol/L (3.5-5.1); TOTAL PROTEIN 6.5 gm/dl (6.4-8.2)
[2018-01-13] MEDS: HYDROmorphone HCL 0.5MG/ML 50 ML CASSETTE IV PRN ×3 (06:53→23:07)
[2018-01-13 07:09] VITALS: BP 132/82; PULSE 63; TEMP 36.6; O2SAT 95
[2018-01-13] MEDS: ENOXAPARIN 40 MG/0.4 ML SYR SQ SCH (08:21)
[2018-01-13] MEDS: PANTOprazole INJ 40 MG in SYRINGE 0 ML IV SCH ×2 (08:24→21:00)
--- NOTE | 2018-01-13 09:51 | Surgery Progress Note ---
Surgery Progress Note Date of Service January 13, 2018. Subjective Post OP Day: 3 + feeling well, + flatus, + diet (fulls), No complaints, No bowel movement, No nausea, No vomiting Objective Vital Signs: Date Time Temp Pulse Resp B/P (MAP) Pulse Ox O2 Delivery O2 Flow Rate FiO2 01/13/18 08:00 Room Air 01/13/18 07:09 36.6 63 19 132/82 (99) 95 Room Air 01/13/18 04:10 37.2 57 16 128/85 (99) 95 Room Air 01/13/18 00:00 Room Air 01/12/18 22:51 36.7 70 16 118/84 (95) 95 Room Air 01/12/18 15:30 Room Air 01/12/18 15:13 36.6 72 16 138/86 (103) 95 Room Air General Appearance: WD/WN, no apparent distress Head: normocephalic, atraumatic Neck: supple, trachea midline Respiratory/Chest: chest non-tender, lungs clear Cardiovascular: regular rate, rhythm, no gallop, no murmur Abdomen: normal bowel sounds, soft, + distended, + tenderness Incision(s): clean, dry, intact Extremities: non-tender, no pedal edema Laboratory Results: Results Past 24 Hours Test 01/12/18 14:05 01/13/18 05:29 Range/Units Sodium Level 139 140 136-145 mmol/L Potassium Level 3.6 4.1 3.5-5.1 mmol/L Chloride Level 108 109 98-107 mmol/L Carbon Dioxide Level 25 26 21-32 mmol/L Anion Gap 7.0 5.0 3-11 mmol/L Blood Urea Nitrogen 15 10 7-18 mg/dl Creatinine 1.24 1.11 0.60-1.40 mg/dl Est Creatinine Clear Calc Drug Dose 104.3 116.5 ml/min Estimated GFR () 85.5 97.8 Estimated GFR (Non- 73.8 84.4 BUN/Creatinine Ratio 12.4 9.4 10-20 Random Glucose 105 94 70-99 mg/dl Calcium Level 8.1 8.2 8.5-10.1 mg/dl Magnesium Level 1.9 1.8-2.4 mg/dl Total Bilirubin 0.5 0.6 0.2-1 mg/dl Direct Bilirubin 0.2 0.2 0-0.2 mg/dl Aspartate Amino Transf (AST/SGOT) 34 30 15-37 U/L Alanine Aminotransferase (ALT/SGPT) 90 79 12-78 U/L Alkaline Phosphatase 49 49 45-117 U/L Total Protein 6.5 6.5 6.4-8.2 gm/dl Albumin 3.4 3.2 3.4-5.0 gm/dl Assessment & Plan s/p ex lap w/repair UHR and SB resection -bowel function returning -hungry -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
[2018-01-13 11:02] VITALS: BP 133/81; PULSE 76; TEMP 37; O2SAT 93
[2018-01-13] MEDS ORDERED: NURSING VERBAL MED ORDER ONE (11:45)
[2018-01-13 15:06] VITALS: BP 133/94; PULSE 68; TEMP 36.7; O2SAT 95
[2018-01-13] MEDS: SODIUM CHLORIDE 0.9% 1000ML 1,000 ML IV SCH (18:18)
[2018-01-13] MEDS: NAPROXEN 375 MG TAB PO PRN (20:59)
[2018-01-13 22:50] VITALS: BP 149/96; PULSE 71; TEMP 36.7; O2SAT 93
[2018-01-14] MEDS: OXYCODONE/ACETAMINOPHEN 5-325 TAB PO PRN (01:33)
[2018-01-14] MEDS: PIPERACILL/TAZOBAC IV 3.375 GM in DEXTROSE 5% 100ML 100 ML IV SCH ×2 (01:33→11:03)
[2018-01-14 03:19] VITALS: BP 154/94; PULSE 77; TEMP 36.8; O2SAT 95
--- NOTE | 2018-01-14 05:52 | Progress Note ---
Medicine Progress Note Date & Time of Visit: January 14, 2018 at 05:51. Subjective late entry date of service as noted above seen ambulating in the halls pain over surgical site improving feels bloated after soft diet, (+) flatus, no BM yet no nausea, no heartburn no other symptoms Objective Last 8 Hrs Date Time Temp Pulse Resp B/P (MAP) Pulse Ox O2 Delivery O2 Flow Rate FiO2 01/14/18 03:19 36.8 77 16 154/94 (114) 95 Room Air 01/13/18 23:45 Room Air 01/13/18 22:50 36.7 71 16 149/96 (113) 93 Room Air Physical Exam: General- oriented x 3, not in distress Eyes- anicteric Neck- no JVD Lungs- clear BS BL Heart- regular rhythm; no murmur, normal rate Abdomen- (+) dressing in place, clean sutures intact, wound well opposed no bleeding/discharge--> healing well (+) normoactive bowel sounds, soft, nontender Extremities- no pretibial edema, no calf tenderness Neuro- alert, oriented x 3;no gross focal deficits Laboratory Results: Last 24 Hours Test 01/14/18 05:14 Assessment & Plan FOREIGN BODY INGESTION S/P LAPAROTOMY, HERNIA REPAIR stable overall tolerating soft diet pain improving- d/c Ofirmev and Toradol, add PRN Naproxen 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 We will follow the patient with you during their hospital stay. You can reach a member of the [facility] Hospitalist Team 20/03 via pager @ . Current Inpatient Medications: Current Inpatient Medications Medications (Trade) Dose Ordered Sig/Dash Route Start Time Stop Time Status Last Admin Dose Admin Ioversol (Optiray 320) 100 ml UD PRN IV 01/10/18 10:30 01/14/18 10:29 Piperacillin Sod/ Tazobactam Sod 3.375 gm/Dextrose 115 ml @ 28.75 mls/ hr Q8H IV 01/10/18 18:00 01/20/18 17:59 01/14/18 01:33 28.75 MLS/HR Ondansetron HCl (Zofran Inj) 4 mg Q6H PRN IV 01/10/18 14:45 02/09/18 14:44 Miscellaneous Information (Consult) 1 ea UD N/A 01/10/18 00:00 02/10/18 23:59 No refill Naloxone HCl (Narcan Inj) 0.1 mg Q5M PRN IV 01/10/18 18:15 01/24/18 18:14 Hydromorphone HCl (Dilaudid Hand Flatwork Finisher) 25 mg PRN PRN IV 01/10/18 18:15 01/24/18 18:14 01/13/18 23:07 25 MG Sodium Chloride 1,000 ml @ 15 mls/hr Q24H IV 01/10/18 18:15 02/09/18 18:14 01/13/18 18:18 15 MLS/HR Pantoprazole Sodium 40 mg/ Syringe 10 ml @ 5 mls/min DAILY@09,21 IV 01/11/18 21:00 02/10/18 20:59 01/13/18 21:00 5 MLS/MIN Oxycodone/ Acetaminophen (Percocet 5-325mg Tab) 1 tab Q4H PRN PO 01/12/18 08:30 01/26/18 08:29 01/12/18 09:09 1 TAB Oxycodone/ Acetaminophen (Percocet 5-325mg Tab) 2 tab Q4H PRN PO 01/12/18 08:30 01/26/18 08:29 01/14/18 01:33 2 TAB Enoxaparin Sodium (Lovenox Inj) 40 mg QAM SQ 01/12/18 11:00 02/11/18 10:59 01/13/18 08:21 40 MG Naproxen (Naprosyn Tab) 375 mg BID PRN PO 01/13/18 19:00 02/12/18 18:59 01/13/18 20:59 375 MG
[2018-01-14 06:18] LABS: ALBUMIN 3.3 gm/dl (3.4-5.0); CALCIUM 8.6 mg/dl (8.5-10.1); CREATININE 1.22 mg/dl (0.60-1.40); POTASSIUM 3.8 mmol/L (3.5-5.1); TOTAL PROTEIN 6.7 gm/dl (6.4-8.2)
[2018-01-14] MEDS: HYDROmorphone HCL 0.5MG/ML 50 ML CASSETTE IV PRN (06:55)
[2018-01-14 06:57] VITALS: BP 151/93; PULSE 65; TEMP 37.2; O2SAT 93
--- NOTE | 2018-01-14 07:25 | Surgery Progress Note ---
Surgery Progress Note Date of Service January 14, 2018. Subjective Post OP Day: 4 + feeling well, + complaints (pain controlled w/oral and HEAD TRIMMER), + bowel movement , + flatus, + diet (soft), No nausea, No vomiting Objective Vital Signs: Date Time Temp Pulse Resp B/P (MAP) Pulse Ox O2 Delivery O2 Flow Rate FiO2 01/14/18 06:57 37.2 65 16 151/93 (112) 93 Room Air 01/14/18 03:19 36.8 77 16 154/94 (114) 95 Room Air 01/13/18 23:45 Room Air 01/13/18 22:50 36.7 71 16 149/96 (113) 93 Room Air 01/13/18 16:00 Room Air 01/13/18 15:06 36.7 68 17 133/94 (107) 95 Room Air 01/13/18 11:02 37.0 76 15 133/81 (98) 93 Room Air 01/13/18 08:00 Room Air General Appearance: WD/WN, no apparent distress Head: normocephalic, atraumatic Neck: supple, trachea midline Respiratory/Chest: chest non-tender, lungs clear Cardiovascular: regular rate, rhythm, no gallop, no murmur Abdomen: normal bowel sounds, soft, + distended (mild), + tenderness (mild) Incision(s): clean, dry, intact Extremities: non-tender, no pedal edema Laboratory Results: Results Past 24 Hours Test 01/14/18 05:14 Range/Units Sodium Level 139 136-145 mmol/L Potassium Level 3.8 3.5-5.1 mmol/L Chloride Level 108 98-107 mmol/L Carbon Dioxide Level 26 21-32 mmol/L Anion Gap 5.0 3-11 mmol/L Blood Urea Nitrogen 11 7-18 mg/dl Creatinine 1.22 0.60-1.40 mg/dl Est Creatinine Clear Calc Drug Dose 106.0 ml/min Estimated GFR () 87.2 Estimated GFR (Non- 75.3 BUN/Creatinine Ratio 8.9 10-20 Random Glucose 90 70-99 mg/dl Calcium Level 8.6 8.5-10.1 mg/dl Total Bilirubin 0.6 0.2-1 mg/dl Direct Bilirubin 0.2 0-0.2 mg/dl Aspartate Amino Transf (AST/SGOT) 37 15-37 U/L Alanine Aminotransferase (ALT/SGPT) 87 12-78 U/L Alkaline Phosphatase 52 45-117 U/L Total Protein 6.7 6.4-8.2 gm/dl Albumin 3.3 3.4-5.0 gm/dl Assessment & Plan s/p ex lap w/repair UHR and SB resection -bowel function returned -hungry will advance to regular -needs HEAD TRIMMER still, transition to oral -home tomorrow if does well
[2018-01-14] MEDS: NAPROXEN 375 MG TAB PO PRN (07:55)
[2018-01-14] MEDS ORDERED: OXYCODONE/ACETAMINOPHEN 10/325MG TAB PO PRN (08:00)
[2018-01-14] MEDS: PANTOprazole INJ 40 MG in SYRINGE 0 ML IV SCH (08:55)
[2018-01-14] MEDS: ENOXAPARIN 40 MG/0.4 ML SYR SQ SCH (08:55)
[2018-01-14] MEDS ORDERED: CETIRIZINE HCL 10 MG TAB PO ONE (09:00)
[2018-01-14] MEDS ORDERED: CETIRIZINE HCL 10 MG TAB PO PRN (09:00)
[2018-01-14 09:21] VITALS: BP 151/93; PULSE 65; TEMP 37.2; O2SAT 93
--- NOTE | 2018-01-14 09:21 | Progress Note ---
Medicine Progress Note Date & Time of Visit: January 14, 2018 at 09:11. Subjective seen resting in bed, comfortable states he had a good breakfast- regular diet no nausea, epigastric pain (+) good BM last night mild-mod pain over surgical site--> would like to utilize po meds only developed rash from the buttocks noted last evening, spreading to the left abdominal quadrants with mild pruritus denies chest pain, dyspnea, throat/tongue/lip swelling no other symptoms requesting for discharge today Objective Last 8 Hrs Date Time Temp Pulse Resp B/P (MAP) Pulse Ox O2 Delivery O2 Flow Rate FiO2 01/14/18 06:57 37.2 65 16 151/93 (112) 93 Room Air 01/14/18 03:19 36.8 77 16 154/94 (114) 95 Room Air Physical Exam: General- oriented x 3, not in distress Eyes- anicteric Neck- no JVD Lungs- clear breath sounds bilaterally, no rales/wheezes Heart- regular rhythm; no murmur, normal rate Abdomen- (+) dressing in place, clean sutures intact, wound well opposed no bleeding/discharge--> healing well (+) macular-papular rash on the left abdominal quadrant, no warmth/tenderness (+) normoactive bowel sounds, soft, nontender Extremities- no pretibial edema, no calf tenderness Neuro- alert, oriented x 3;no gross focal deficits Laboratory Results: Last 24 Hours Test 01/14/18 05:14 Sodium Level 139 mmol/L Potassium Level 3.8 mmol/L Chloride Level 108 mmol/L Carbon Dioxide Level 26 mmol/L Anion Gap 5.0 mmol/L Blood Urea Nitrogen 11 mg/dl Creatinine 1.22 mg/dl Est Creatinine Clear Calc Drug Dose 106.0 ml/min Estimated GFR () 87.2 Estimated GFR (Non- 75.3 BUN/Creatinine Ratio 8.9 Random Glucose 90 mg/dl Calcium Level 8.6 mg/dl Total Bilirubin 0.6 mg/dl Direct Bilirubin 0.2 mg/dl Aspartate Amino Transf (AST/SGOT) 37 U/L Alanine Aminotransferase (ALT/SGPT) 87 U/L Alkaline Phosphatase 52 U/L Total Protein 6.7 gm/dl Albumin 3.3 gm/dl Assessment & Plan FOREIGN BODY INGESTION S/P LAPAROTOMY, HERNIA REPAIR post op day #4 remains stable tolerated regular diet pain improving- d/c Ofirmev and Toradol, added PRN Naproxen 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 Velázquez this week RASH, POSSIBLE DRUG RELATED? CONTACT DERMATITIS? (+) rash on the abdomen/buttock started last night most recent addition to medication list is Naproxen but rash noticed before 1st dose from Zosyn? trial of Cetirizine discussed with patient and his Dr. Watson, they are ok to continue with Zosyn/Augmentin and will monitor closely at home, PRN Cetirizine if rash worsening, advised to discontinue Augmentin and transition to either Cipro/Flagyl or Moxifloxacin REFLUX SYMPTOMS Protonix IV BID ordered--> change to PO Protonix daily improved HEPATIC STEATOSIS LFTs improving daily monitor as outpatient Thank you for this consultation. We will follow the patient with you during their hospital stay. You can reach a member of the [facility] Hospitalist Team 20/03 via pager @ [phone]. Current Inpatient Medications: Current Inpatient Medications Medications (Trade) Dose Ordered Sig/Dash Route Start Time Stop Time Status Last Admin Dose Admin Ioversol (Optiray 320) 100 ml UD PRN IV 01/10/18 10:30 01/14/18 10:29 Piperacillin Sod/ Tazobactam Sod 3.375 gm/Dextrose 115 ml @ 28.75 mls/ hr Q8H IV 01/10/18 18:00 01/20/18 17:59 01/14/18 01:33 28.75 MLS/HR Ondansetron HCl (Zofran Inj) 4 mg Q6H PRN IV 01/10/18 14:45 02/09/18 14:44 Miscellaneous Information (Consult) 1 ea UD N/A 01/10/18 00:00 02/10/18 23:59 No refill Naloxone HCl (Narcan Inj) 0.1 mg Q5M PRN IV 01/10/18 18:15 01/24/18 18:14 Sodium Chloride 1,000 ml @ 15 mls/hr Q24H IV 01/10/18 18:15 02/09/18 18:14 01/13/18 18:18 15 MLS/HR Pantoprazole Sodium 40 mg/ Syringe 10 ml @ 5 mls/min DAILY@09,21 IV 01/11/18 21:00 02/10/18 20:59 01/14/18 08:55 5 MLS/MIN Enoxaparin Sodium (Lovenox Inj) 40 mg QAM SQ 01/12/18 11:00 02/11/18 10:59 01/14/18 08:55 40 MG Naproxen (Naprosyn Tab) 375 mg BID PRN PO 01/13/18 19:00 02/12/18 18:59 01/14/18 07:55 375 MG Oxycodone/ Acetaminophen (Percocet 10-325MG Tab) 1 tab Q4H PRN PO 01/14/18 08:00 01/28/18 07:59 01/14/18 08:54 1 TAB
[2018-01-14] MEDS ORDERED: OXYC-594 PO (10:07)
[2018-01-14] MEDS ORDERED: PANT1TAB3 PO (10:07)
[2018-01-14] MEDS ORDERED: ZYR10 PO (10:07)
[2018-01-14] MEDS ORDERED: NAPR-1231 PO (10:07)
--- NOTE | 2018-01-14 10:15 | Discharge Instructions ---
Discharge Instructions Date of Service January 14, 2018. Admission Reason for Admission: Foreign Body In Intestine, Perforation Of Small Discharge Discharge Diagnosis / Problem: SMALL BOWEL PERFORATION, FOREIGN BODY IN THE INSTESTING Discharge Goals Goal(s): Decrease discomfort, Diagnostic testing, Therapeutic intervention Activity Recommendations Activity Limitations: as noted below (INCREASE ACTIVITY GRADUALLY TOLERATED , NO HEAVY EXERTION) Lifting Limitations: until after follow-up appointment Exercise/Sports Limitations: until after follow-up appointment Driving or Machine Use: NO DRIVING WHILE TAKING PERCOCET . Instructions / Follow-Up Instructions / Follow-Up PLEASE REVIEW YOUR NEW MEDICATION LIST AND FOLLOW INSTRUCTIONS CAREFULLY. ENSURE ADEQUATE DAILY FLUID INTAKE. CALL DR. MAN'S OFFICE OR RETURN TO ER IMMEDIATELY IF WITH INCREASING ABDOMINAL PAIN, NAUSEA/VOMITING, FEVER/CHILLS, DISCHARGE/BLEEDING FROM THE INCISION SITE, CONSTIPATION/DIARRHEA. FOLLOW UP WITH DR. MAN THIS COMING WEEK FOR SUTURE REMOVAL. FOLLOW UP WITH PRIMARY CARE PHYSICIAN IN 2 WEEKS. Current Hospital Diet Patient's current hospital diet: Regular Diet Discharge Diet Recommended Diet: Regular Diet Procedures Procedures Performed: Exploratory Laparotomy with Removal of Foreign Body, Repair of Small Bowel Performation, Repair Umbilical Hernia Pending Studies Studies pending at discharge: no Medical Emergencies . Who to Call and When: Medical Emergencies: If at any time you feel your situation is an emergency, please call 911 immediately. . Non-Emergent Contact Non-Emergency issues call your: Primary Care Provider Call Non-Emergent contact if: you have a fever, your pain is not controlled, your pain is worsening, wound has increased drainage, wound has increased redness, wound has increased pain, you have any medication questions . . "Provider Documentation" section prepared by Raul Walter. .
[2018-01-14] MEDS ORDERED: AMOXICILLIN/CLAVULANATE TAB 875 MG TAB PO ONE (10:30)
--- NOTE | 2018-01-14 10:30 | Progress Note ---
Progress Note Date of Service January 14, 2018. Progress Note Doing well Will send home today
--- NOTE | 2018-01-16 13:36 | DISCHARGE SUMMARY ---
PRINCIPAL DIAGNOSIS: Perforated small bowel. PROCEDURES: The patient underwent exploratory laparotomy with removal of foreign body and small bowel repair. HISTORY OF PRESENT ILLNESS: The patient is a 37-year-old male presenting to the Emergency Room with acute abdominal pain with workup finding a metallic object appearing to be a wire perforating through the small bowel. HOSPITAL COURSE: The patient was taken urgently to the operating room where he underwent laparotomy with removal of the foreign body, which was a small sharp wire perforating the small bowel distally. The small bowel was repaired without resection. Postoperatively, the patient did well, progressing in both diet and activity, and felt stable for discharge on 01/14/2018 to be followed in the surgical clinic.
== END 2018-01-14 11:06 | disposition home or self-care (01) | DRG 331 ==
LOC: C.EDB 07:53 → C.MSW 14:40 → ENRESERV 15:27 → C.3E 22:26
PROVIDERS: ADMIT Surgery; ATTEND Surgery
PROC: 0DQ80ZZ Repair Small Intestine, Open Approach (ICD-10-PCS; principal; 2018-01-07)
PROC: 0WQF0ZZ Repair Abdominal Wall, Open Approach (ICD-10-PCS; principal; 2018-01-07)
PROC: 0DC80ZZ Extirpation of Matter from Small Intestine, Open Approach (ICD-10-PCS; principal; 2018-01-07)
DX: S36.439A Laceration of unspecified part of small intestine, initial encounter (principal); T18.3XXA Foreign body in small intestine, initial encounter; X58.XXXA Exposure to other specified factors, initial encounter; K42.9 Umbilical hernia without obstruction or gangrene; K21.9 Gastro-esophageal reflux disease without esophagitis; K76.0 Fatty (change of) liver, not elsewhere classified; R21 Rash and other nonspecific skin eruption; L29.8 Other pruritus

== ENCOUNTER 2024-10-01 15:09 | Inpatient (IN) ==
[2024-10-01 15:48] LABS: Hematocrit (blood only) 42.6 % (42.0-52.0); Mean Corpuscular Hemoglobin 27.9 pg (25.0-34.0); Mean Corpuscular Hgb Conc 35.2 g/dL (32.0-36.0); Mean Corpuscular Volume 79.2 fL (80.0-100.0); Mean Platelet Volume 8.7 fL (9.4-12.4); Platelet Count 275 K/uL (130-400); RDW Standard Deviation 36.7 fL (36.4-46.3); Red Blood Count 5.38 M/uL (4.70-6.10); White Blood Count 13.56 K/ul (4.8-10.8)
[2024-10-01 16:04] LABS: Albumin Globulin Ratio 1.5 (0.9-2); Albumin Level 4.3 gm/dl (3.4-5.0); BUN Creatinine Ratio 17.1 (10-20); Bilirubin,Total 0.7 mg/dl (0.2-1.0); Calcium 9.3 mg/dl (8.6-10.3); Globulin 2.8 gm/dl (2.5-4.0); Potassium 3.9 mmol/L (3.5-5.1); Total Protein 7.1 gm/dl (6.0-8.3)
--- NOTE | 2024-10-01 16:09 | Emergency Department Note ---
Impression & Plan Tachycardia, Anal fissure, Acute hypotension, Bright red rectal bleeding, Body aches, Rigors, Headache, Dehydration ED Provider Note CHIEF COMPLAINT: Back pain, body aches, blood in the stool HISTORY OF PRESENTING ILLNESS: This 44-year-old male patient presents to the emergency department with his for evaluation of low back pain, body aches, rigors, and rectal bleeding. The patient states that 2 hours prior to arrival he started shaking, feeling cold, and getting body aches/rigors. He then started with low back pain from the shaking. He denies abdominal pain. Denies nausea or vomiting. He denies any chest pain or SOB. Denies cough, sore throat, or other URI symptoms. The patient states that he had a bowel movement with bright red blood this morning that filled the toilet bowl. He states that the BM was hard and painful before the rectal bleeding started. He has a history of anal fissures and intermittent rectal bleeding, but never this bad. Only had the 1 episode of rectal bleeding and he felt fine after the episode until the other symptoms started 2 hours prior to arrival. The patient states that he had a colonoscopy 2 to 3 years ago through [facility] that was normal. He did take 600 mg of Motrin at 2:15 PM today. The patient was feeling fine prior to 2 hours prior to arrival. He is not on any blood thinners. REVIEW OF SYSTEMS: See HPI for pertinent positives and pertinent negatives. ALLERGIES: NKDA MEDICATIONS: Losartan, Paxil PAST MEDICAL HISTORY: HTN, Depression PHYSICAL EXAM: VITALS: Vitals are noted on the nurse's note and reviewed by myself. GENERAL: Non toxic, in no acute distress, non-diaphoretic. SKIN: Capillary refill <2 sec. EYES: PERRLA. EOMI. Conjunctivae without injection, sclerae without icterus. NOSE: Patent without discharge. MOUTH: Mucous membranes moist. Uvula midline. Airway patent. NECK: Supple without nuchal rigidity. HEART: Regular rate and rhythm without murmurs gallops or rubs. LUNGS: Clear to auscultation bilaterally without wheezes, rales or rhonchi. No retractions or accessory muscle use. ABDOMEN: Positive bowel sounds x 4. Normal tympanic percussion. Soft, nontender to palpation. No masses or hepatosplenomegaly. Katz sign negative. No CVA tenderness. No guarding, rigidity, or rebound tenderness. No focal RLQ or LLQ tenderness. RECTAL EXAM: Permission to perform the exam. The patient's and program planner present for exam. No external lesions noted. No evidence for cellulitis or abscess at this time. No significantly enlarged external hemorrhoids. No thrombosed hemorrhoids. Normal sphincter tone. The patient has an anal fissure at the 6 o'clock position that is significantly tender to palpation. Internal hemorrhoids are minimally enlarged. No other masses, tears, fistulas, abscess, or other lesion noted. Stool is brown and Hemoccult positive. MUSCULOSKELETAL: No gross musculoskeletal defects. NEURO: Patient was alert and oriented. No focal neurological deficits. DIFFERENTIAL DIAGNOSIS: Differential diagnosis includes viral syndrome, RSV, Influenza, COVID, strep throat, pharyngitis/tonsillitis, mononucleosis, retropharyngeal abscess, peritonsillar abscess, otitis media, otitis externa, sinusitis, bronchitis, pneumonia, hepatitis, pancreatitis, cholecystitis, cholelithiasis, appendicitis, kidney stone, pyelonephritis, UTI, gastritis, gastroenteritis, mesenteric adenitis, obstruction, constipation, hernia, abdominal abscess, perforation, diverticulitis, IBD, ischemic colitis, abdominal aortic aneurysm, testicular torsion, prostatitis, or others. ED COURSE AND MEDICAL DECISION MAKING: HISTORY FROM INDEPENDENT HISTORIAN: Additional history obtained from the patient's MEDICATIONS GIVEN: A total of 3.5 L of normal saline solution bolus. Tylenol 1000 mg IV. Morphine 4 mg IV and Zofran 4 mg IV. Rocephin 2 g IV. MONITOR: Continuous bus monitor: Order was placed for continuous bus monitor. Patient was placed on the bus monitor and continuous pulse ox. Patient was noted to be in sinus tachycardia at an initial rate of 128 bpm per my interpretation. EKG: EKG was interpreted by myself as sinus tachycardia at 110 bpm with an incomplete right bundle branch block, but no acute ST or T wave changes. INTERPRETATION OF LABS: I interpreted the labs with full lab results as below in the lab section of this note. Laboratory results pertinent to the emergent complaint are discussed in the MDM section below. The patient was advised to follow up with their PCP and/or specialist(s) for further outpatient monitoring and management of any abnormal results. INTERPRETATION OF IMAGING: Imaging studies were interpreted by myself and read by radiology as per the imaging section of this note. The patient was advised to follow up with their PCP and/or specialist(s) for further outpatient management of any non-emergent abnormal findings. Chest x-ray negative for pneumonia or other acute cardiopulmonary etiology. CT scan of the abdomen pelvis with IV contrast shows hepatomegaly and mild splenomegaly. The patient states that he has been worked up for the hepatomegaly and significant fatty infiltration by GI. The patient does not remember if he has had splenomegaly before. CT scan of the head without contrast shows no acute intracranial abnormality. There are calcifications in the basal ganglia bilaterally which may be from prior toxic/metabolic abnormality or idiopathic. CONSULTATIONS: On-call hospitalist CRITICAL CARE: I have personally spent 40 minutes of critical care time in the direct management of this patient. This includes bedside care, interpretation of diagnostic studies, and testing, discussion with consultants, patient, and family members, and other required patient management activities. This 40 minutes is in excess of all separately billable procedures. MDM SUMMARY: The patient was seen during a time of extreme volume and extreme acuity. Nursing triage protocols were initiated with IV lock, labs, and/or imaging studies conducted by protocol in the triage area. The patient was initially evaluated in a triage room and then re-evaluated once they were taken back to an exam room. The patient states that he had some bright red blood that filled the toilet bowl after a hard and painful bowel movement this morning. He has a history of intermittent rectal bleeding, but never this much. His last colonoscopy was 2 to 3 years ago and was normal per patient. However, approximately 2 hours prior to arrival he started with shaking, feeling cold, and getting body aches/rigors. He then had some low back pain from the shaking. He denies any chest pain, shortness of breath, abdominal pain, nausea, vomiting, or fevers. The patient has an anal fissure on exam that is tender to palpation. His stool is Hemoccult positive. Initial workup from triage revealed a white blood cell count that was elevated at 13.56. Hemoglobin normal at 15.0. Platelet count normal at 275. Coags were normal. CMP was normal. CPK was normal. High-sensitivity troponin normal. Respiratory BioFire negative. Urinalysis with 1+ ketones, but no evidence for UTI. The patient's initial heart rate was 132. This did improve after the IV fluids and pain medications. Given the patient's tachycardia, leukocytosis, and persistent symptoms despite negative bio fire, additional workup was initiated once the patient was taken back to a room including sepsis workup. The patient was initially given 2.5 L of normal saline solution based on his ideal body weight. The patient's blood pressure was initially normal, but he did become hypotensive. Nursing staff only documented 1 hypotensive blood pressure in the chart, but the patient did have persisting hypotension requiring multiple fluid boluses for a total of 3.5 L of normal saline solution before returning to normal. Blood cultures were obtained and he was given Rocephin 2 g IV. Lactate was normal, but procalcitonin was elevated at 1.36. Chest x-ray negative for pneumonia or other acute cardiopulmonary etiology. CT scan of the abdomen pelvis with IV contrast shows hepatomegaly and mild splenomegaly. The patient states that he has been worked up for the hepatomegaly and significant fatty infiltration by GI. The patient does not remember if he has had splenomegaly before. Monospot was negative. EBV and CMV titers are still pending. Lyme disease screen negative. Anaplasmosis and Babesia smears are negative with DNA PCR still pending. The patient started to complain of a headache while in the emergency department that persisted despite the IV Tylenol, morphine, and Zofran. The patient was offered an additional dose of morphine, but he declined. The patient also became hypotensive so the additional dose of morphine was held. Due to the patient's persisting symptoms, abnormal vital signs, and abnormal laboratory studies, a CT scan of the head was obtained. CT scan of the head without contrast shows no acute intracranial abnormality. There are calcifications in the basal ganglia bilaterally which may be from prior toxic/metabolic abnormality or idiopathic. The patient required a total of 3.5 L of normal saline solution bolus to improve his tachycardia and hypotension. While the patient was afebrile, he did have rigors and bodyaches at home. Lactate is normal, but procalcitonin is elevated. Unclear etiology of his symptoms at this time. The patient continued to feel "unwell" per patient. Therefore, I feel the patient requires admission for further evaluation and treatment. I spoke with the on-call hospitalist who agreed to admit the patient for further evaluation and treatment. Please refer to their dictation for further details. The patient's care was transferred in stable condition. DIAGNOSIS: Tachycardia Hypotension Rectal bleeding Anal fissure Body aches/rigors Headache Dehydration Past Med/Surg History Problem List (Updated 10/02/24 @ 01:41 by Trista Coello PA-C) Dehydration (Acute) Headache (Acute) Rigors (Acute) Body aches (Acute) Bright red rectal bleeding (Acute) Acute hypotension (Acute) Anal fissure (Acute) Tachycardia (Acute) Hypotension Perforation of small intestine due to foreign object Social History Smoking Status: Never smoker Hx Alcohol Use: Yes Alcohol type: wine Hx Substance Use: No Preferred Language: [place] Communication Ability: Effective Carpenter Foreman Required: No Beliefs That Will Affect Care: None Current Living Situation: Spouse and Family Feels Safe at Home: Yes Safety Concerns: Feels Safe At This Time Assistive Devices: None Allergies Allergies Allergy/AdvReac Type Severity Reaction Status Date / Time No Known Allergies Allergy Unverified 01/10/18 10:57 Home Meds Home Medications Medication Instructions Recorded Confirmed fluoxetine 40 mg capsule 40 mg PO DAILY 10/01/24 10/01/24 losartan 50 mg tablet 50 mg PO DAILY 10/01/24 10/01/24 semaglutide 2 mg/dose (8 mg/3 mL) 2 mg subcut WK 10/01/24 10/01/24 subcutaneous pen injector (Ozempic) Results & Data (ED) Vital Signs Vital Signs - 24 hr 10/01/24 15:15 10/01/24 16:27 10/01/24 16:27 Temperature 36.9 C Temperature Source Temporal Artery Scan Pulse Rate 132 H 120 H Pulse Rate [Apical] 116 H Respiratory Rate 18 13 18 Respiratory Effort / Characteristics Non-Labored Spontaneous Non-Labored Spontaneous Respiratory Depth Normal Normal Respiratory Pattern Regular Regular Blood Pressure 123/85 Blood Pressure [Right Arm] 108/73 Blood Pressure Mean 97 Blood Pressure Mean [Right Arm] 84 Blood Pressure Position Sitting Blood Pressure Position [Right Arm] Semi-fowlers Pulse Oximetry 97 95 95 Oxygen Delivery Method Room Air Room Air Room Air Sepsis Recent Fever Within 48 Hours No Sepsis New/Unexplained Change in Mental Status N/A Sepsis Action Taken by Nursing No Action Required 10/01/24 16:39 10/01/24 18:00 10/01/24 20:00 Temperature Temperature Source Pulse Rate 109 H Pulse Rate [Apical] 96 H 90 Respiratory Rate 18 16 Respiratory Effort / Characteristics Non-Labored Spontaneous Non-Labored Spontaneous Respiratory Depth Respiratory Pattern Blood Pressure Blood Pressure [Right Arm] 113/72 88/64 L Blood Pressure Mean Blood Pressure Mean [Right Arm] 85 72 Blood Pressure Position Blood Pressure Position [Right Arm] Lying Lying Pulse Oximetry 96 96 Oxygen Delivery Method Room Air Room Air Sepsis Recent Fever Within 48 Hours Sepsis New/Unexplained Change in Mental Status Sepsis Action Taken by Nursing Laboratory Data 10/01/24 15:23 10/01/24 15:23 Lab Results 10/01/24 10/01/24 10/01/24 Range/Units 15:17 15:23 16:44 WBC 13.56 H (4.8-10.8) K/ul RBC 5.38 (4.70-6.10) M/uL Hgb 15.0 (14.0-18.0) g/dl Hct 42.6 (42.0-52.0) % MCV 79.2 L (80.0-100.0) fL MCH 27.9 (25.0-34.0) pg MCHC 35.2 (32.0-36.0) g/dL RDW Std Deviation 36.7 (36.4-46.3) fL RDW Coeff of Frida 13.0 (11.5-14.5) % Plt Count 275 (130-400) K/uL MPV 8.7 L (9.4-12.4) fL PT 10.9 (9.0-12.0) Seconds INR 1.0 (0.9-1.1) APTT 27 (21-31) Seconds PTT Ratio 1.0 Sodium 138 (136-145) mmol/L Potassium 3.9 (3.5-5.1) mmol/L Chloride 105 (98-107) mmol/L Carbon Dioxide 24 (21-32) mmol/L Anion Gap 9 (3-11) BUN 19 (6-23) mg/dl Creatinine 1.11 (0.6-1.4) mg/dl Est Cr Clr Drug Dosing 106.0 ml/min eGFR 83.98 BUN/Creatinine Ratio 17.1 (10-20) Glucose 94 (70-99(Fasting)) mg/dl Lactate (0.4-2.0) mmol/L Calcium 9.3 (8.6-10.3) mg/dl Total Bilirubin 0.7 (0.2-1.0) mg/dl AST 25 (13-39) U/L ALT 40 (7-52) U/L Alkaline Phosphatase 60 (34-104) U/L Total Creatine Kinase 82 (30-223) U/L Troponin I High Sens 3.5 (0-20) pg/ml Total Protein 7.1 (6.0-8.3) gm/dl Albumin 4.3 (3.4-5.0) gm/dl Globulin 2.8 (2.5-4.0) gm/dl Albumin/Globulin Ratio 1.5 (0.9-2) Procalcitonin (0-0.5) ng/ml Urine Color Dark Yellow Urine Appearance Cloudy A (Clear) Urine pH 5.5 (4.5-7.5) Ur Specific [place] 1.029 (1.000-1.030) Urine Protein Trace H (Negative) Urine Glucose (UA) Negative (Negative) Urine Ketones 1+ H (Negative) Urine Blood Negative (Negative) Urine Nitrite Negative (Negative) Urine Bilirubin 1+ H (Negative) Urine Urobilinogen Negative (Negative) Ur Leukocyte Esterase Negative (Negative) Urine WBC (Auto) 0-5 (0-5) /hpf Urine RBC (Auto) 3-5 H (0-2) /hpf U Hyaline Cast (Auto) 3-5 H (0-2) /lpf U Epithel Cells (Auto) 0-2 (0-2) /hpf Urine Bacteria (Auto) None Seen (None Seen) Calcium Oxalate Crystal Present A (None Prsent) Adenovirus (PCR) Not Detected (NotDetected) Anaplasma Smear Babesia Smear B. pertussis DNA (PCR) Not Detected (NotDetected) B.parapertussis DNA PCR Not Detected (NotDetected) Lyme Disease Screen (Negative) C. pneumoniae DNA (PCR) Not Detected (NotDetected) Coronavirus OC43 (PCR) Not Detected (NotDetected) Coronavirus HKU1 (PCR) Not Detected (NotDetected) Coronavirus 229E (PCR) Not Detected (NotDetected) SARS-CoV-2 (PCR) Not Detected (NotDetected) Coronavirus NL63 (PCR) Not Detected (NotDetected) Monoscreen (Negative) Human Metapneumovir PCR Not Detected (NotDetected) Influenza Type A (PCR) Not Detected (NotDetected) Influenza Type B (PCR) Not Detected (NotDetected) M. pneumoniae (PCR) Not Detected (NotDetected) Parainfluenza 1 (PCR) Not Detected (NotDetected) Parainfluenza 2 (PCR) Not Detected (NotDetected) Parainfluenza 3 (PCR) Not Detected (NotDetected) Parainfluenza 4 (PCR) Not Detected (NotDetected) RSV (PCR) Not Detected (NotDetected) Entero/Rhino (PCR) Not Detected (NotDetected) Blood Type A Positive Antibody Screen NEGATIVE 10/01/24 10/01/24 Range/Units 17:52 19:30 WBC (4.8-10.8) K/ul RBC (4.70-6.10) M/uL Hgb (14.0-18.0) g/dl Hct (42.0-52.0) % MCV (80.0-100.0) fL MCH (25.0-34.0) pg MCHC (32.0-36.0) g/dL RDW Std Deviation (36.4-46.3) fL RDW Coeff of Frida (11.5-14.5) % Plt Count (130-400) K/uL MPV (9.4-12.4) fL PT (9.0-12.0) Seconds INR (0.9-1.1) APTT (21-31) Seconds PTT Ratio Sodium (136-145) mmol/L Potassium (3.5-5.1) mmol/L Chloride (98-107) mmol/L Carbon Dioxide (21-32) mmol/L Anion Gap (3-11) BUN (6-23) mg/dl Creatinine (0.6-1.4) mg/dl Est Cr Clr Drug Dosing ml/min eGFR BUN/Creatinine Ratio (10-20) Glucose (70-99(Fasting)) mg/dl Lactate 1.4 (0.4-2.0) mmol/L Calcium (8.6-10.3) mg/dl Total Bilirubin (0.2-1.0) mg/dl AST (13-39) U/L ALT (7-52) U/L Alkaline Phosphatase (34-104) U/L Total Creatine Kinase (30-223) U/L Troponin I High Sens (0-20) pg/ml Total Protein (6.0-8.3) gm/dl Albumin (3.4-5.0) gm/dl Globulin (2.5-4.0) gm/dl Albumin/Globulin Ratio (0.9-2) Procalcitonin 1.36 H (0-0.5) ng/ml Urine Color Urine Appearance (Clear) Urine pH (4.5-7.5) Ur Specific [place] (1.000-1.030) Urine Protein (Negative) Urine Glucose (UA) (Negative) Urine Ketones (Negative) Urine Blood (Negative) Urine Nitrite (Negative) Urine Bilirubin (Negative) Urine Urobilinogen (Negative) Ur Leukocyte Esterase (Negative) Urine WBC (Auto) (0-5) /hpf Urine RBC (Auto) (0-2) /hpf U Hyaline Cast (Auto) (0-2) /lpf U Epithel Cells (Auto) (0-2) /hpf Urine Bacteria (Auto) (None Seen) Calcium Oxalate Crystal (None Prsent) Adenovirus (PCR) (NotDetected) Anaplasma Smear See Comment Babesia Smear See Comment B. pertussis DNA (PCR) (NotDetected) B.parapertussis DNA PCR (NotDetected) Lyme Disease Screen Negative (Negative) C. pneumoniae DNA (PCR) (NotDetected) Coronavirus OC43 (PCR) (NotDetected) Coronavirus HKU1 (PCR) (NotDetected) Coronavirus 229E (PCR) (NotDetected) SARS-CoV-2 (PCR) (NotDetected) Coronavirus NL63 (PCR) (NotDetected) Monoscreen Negative (Negative) Human Metapneumovir PCR (NotDetected) Influenza Type A (PCR) (NotDetected) Influenza Type B (PCR) (NotDetected) M. pneumoniae (PCR) (NotDetected) Parainfluenza 1 (PCR) (NotDetected) Parainfluenza 2 (PCR) (NotDetected) Parainfluenza 3 (PCR) (NotDetected) Parainfluenza 4 (PCR) (NotDetected) RSV (PCR) (NotDetected) Entero/Rhino (PCR) (NotDetected) Blood Type Antibody Screen Administered Medications Sodium Chloride (Nss) 1,000 mls @ 125 mls/hr IV .Q8H ASAEL Stop: 10/02/24 23:29 Last Admin: 10/01/24 23:15 Dose: 125 mls/hr Documented By: MADDIE Ampicillin Sodium/Sulbactam Sodium (Unasyn) 3,000 mg in 100 mls @ 200 mls/hr IV Q6H ASAEL Stop: 10/12/24 00:00 Last Infusion: 10/02/24 00:13 Dose: Infused Documented By: Admin: 10/01/24 23:43 Dose: 200 mls/hr Documented By: VK Acetaminophen (Ofirmev) 1,000 mg in 100 mls @ 400 mls/hr IV Q8H PRN PRN Reason: Pain or Fever Stop: 10/04/24 23:19 Last Admin: 10/02/24 00:21 Dose: 400 mls/hr Documented By: VK Discontinued Medications Sodium Chloride (Nss) 1,000 mls @ 999 mls/hr IV .Q1H1M ONE Stop: 10/01/24 17:19 Last Infusion: 10/01/24 17:41 Dose: Infused Documented By: Admin: 10/01/24 16:30 Dose: 999 mls/hr Documented By: CALE Acetaminophen (Ofirmev) 1,000 mg in 100 mls @ 400 mls/hr IV NOW STA Stop: 10/01/24 16:33 Last Infusion: 10/01/24 17:41 Dose: Infused Documented By: Admin: 10/01/24 16:43 Dose: 400 mls/hr Documented By: YUMIKO Sodium Chloride (Nss) 1,000 mls @ 999 mls/hr IV .Q1H1M ONE Stop: 10/01/24 18:21 Last Infusion: 10/01/24 19:25 Dose: Infused Documented By: Admin: 10/01/24 17:42 Dose: 999 mls/hr Documented By: YUMIKO Ceftriaxone Sodium (Rocephin) 2,000 mg in 50 mls @ 100 mls/hr IV NOW STA Stop: 10/01/24 19:32 Last Infusion: 10/01/24 20:25 Dose: Infused Documented By: Admin: 10/01/24 19:18 Dose: 100 mls/hr Documented By: YUMIKO Sodium Chloride (Nss) 500 mls @ 999 mls/hr IV .Q31M ONE Stop: 10/01/24 19:35 Last Infusion: 10/01/24 20:25 Dose: Infused Documented By: Admin: 10/01/24 19:16 Dose: 999 mls/hr Documented By: YUMIKO Sodium Chloride (Nss) 1,000 mls @ 999 mls/hr IV .Q1H1M ONE Stop: 10/01/24 21:29 Last Infusion: 10/01/24 21:39 Dose: Infused Documented By: Admin: 10/01/24 20:38 Dose: 999 mls/hr Documented By: YUMIKO Ioversol (Optiray 320 100ml) 94 ml IV ONCE ONE Stop: 10/01/24 18:26 Last Admin: 10/01/24 18:26 Dose: 94 ml Documented By: LEW Morphine Sulfate (Morphine Sulfate 4 Mg/Ml 1 Ml Carp\\Vial) 4 mg IV NOW STA Stop: 10/01/24 17:22 Last Admin: 10/01/24 17:42 Dose: 4 mg Documented By: YUMIKO Morphine Sulfate (Morphine Sulfate 4 Mg/Ml 1 Ml Carp\\Vial) 4 mg IV NOW STA Stop: 10/01/24 19:04 Last Admin: 10/01/24 20:17 Dose: Not Given Documented By: YUMIKO Ondansetron HCl (Ondansetron Inj 2 Mg/Ml 2 Ml Vial) 4 mg IV NOW STA Stop: 10/01/24 17:22 Last Admin: 10/01/24 17:42 Dose: 4 mg Documented By: YUMIKO Imaging Data Radiologist's Impression: Abdomen/Pelvis CT 10/01/24 17:21 Clinical History: Abdominal pain Technique: Axial computed tomography images were obtained of the abdomen and pelvis after the administration of intravenous contrast. Comparison is made to the prior CT dated 01/10/2018 Findings: The liver is enlarged measuring 21.3 cm. There is sign of cirrhosis or significant fatty infiltration. No liver mass lesion is seen. The portal vein is patent. The gallbladder appears unremarkable. No bile duct dilatation is noted. The spleen is mildly enlarged measuring 14 cm. No focal splenic lesion is evident. The pancreas appears normal with no sign of acute or chronic pancreatitis and no mass lesion noted. The pancreatic duct is of normal caliber. The adrenal glands appear unremarkable. No definite renal or proximal ureteral calculi are seen on this contrast-enhanced study. There is no hydronephrosis or perinephric stranding. No renal mass lesion is identified. The aorta is of normal caliber. No abdominal adenopathy is seen. The stomach appears normal. There is no sign of small bowel obstruction. The colon appears unremarkable. There is no sign of appendicitis. No free intraperitoneal fluid or air is identified. No distal ureteral or bladder calculi are seen. No bladder mass lesion is evident. The iliac arteries are of normal caliber. No pelvic adenopathy is noted. The lungs bases appear clear. No fracture is identified. No focal osseous lesion is seen Impression: 1. Hepatomegaly 2. Mild splenomegaly Electronically signed by Dionisio Pepe 10-01-2024 6:43 PM Chest X-Ray 10/01/24 17:21 Clinical History: Chest pain Technique: A frontal view of the chest was obtained Findings: There are no confluent pulmonary infiltrates. The heart size is within normal limits. No pleural effusion or pneumothorax is seen. There is no definite pulmonary nodule. No fracture is noted. No foreign body is seen Impression: No active disease Electronically signed by Dionisio Pepe 10-01-2024 5:[address] 10/01/24 19:03 CT head without contrast History: Headache Comparison: None Technique: Using multidetector thin collimation helical acquisition technique, axial, coronal and sagittal CT images from the skull base to the vertex were obtained without intravenous contrast. Dose reduction techniques were achieved by using automatic exposure control and/or adjustment of mA and/or kV according to patient size and/or use of iterative reconstruction technique. Findings: No intracranial hemorrhage, mass-effect, or midline shift. The ventricles are proportionate to the cerebral sulci. The beltran to white matter differentiation of the cerebral hemispheres is preserved. The basal cisterns are patent. The visualized paranasal sinuses are clear. Mastoid air cells are clear. Impression: No acute intracranial pathology. Calcifications in the basal ganglia bilaterally, may be from prior toxic/metabolic abnormality, or idiopathic. Electronically signed by Manuel Rose 10-01-2024 8:04 PM Discharge Plan Visit Data Chief Complaint: GI Bleed Stated Complaint: SHAKY, BACK PAIN, LEG PAIN, CHILLS ED Provider: Tyrone Davis ED Midlevel Provider: Trista Coello Discharge Problem: Tachycardia, Anal fissure, Acute hypotension, Bright red rectal bleeding, Body aches, Rigors, Headache, Dehydration Patient Disposition: Admitted As Inpatient Condition: Good Discharge Instructions Interventions: ED Discharge Assessment Last Done: 10/01/24 22:24 Discharge Problem: Headache Qualifiers: Headache type: unspecified Headache chronicity pattern: acute headache I ntractability: not intractable Qualified Code(s): R51.9 - Headache, unspecified
[2024-10-01 16:10] LABS: Troponin I High Sensitivity 3.5 pg/ml (0-20)
[2024-10-01 16:14] LABS: Partial Thromboplastin Time 27 Seconds (21-31); Prothrombin Time 10.9 Seconds (9.0-12.0)
[2024-10-01] MEDS: SODIUM CHLORIDE 0.9% 1,000 ML IV ONE ×3 (16:30→20:38)
[2024-10-01] MEDS: ACETAMINOPHEN 1,000 MG/100 ML VIAL IV STA (16:43)
[2024-10-01 17:14] LABS: Appearance Urine Cloudy (Clear); Bacteria Urine Automated None Seen (None Seen); Bilirubin Urine 1+ (Negative); Blood Urine Negative (Negative); Calcium Oxalate Crystals Urine Present (None Prsent); Color Urine Dark Yellow; Epithelial Cell Urine Auto 0-2 /hpf (0-2); Glucose Urine UA Negative (Negative); Ketones Urine 1+ (Negative); Leukocyte Esterase Urine Negative (Negative); Nitrite Urine Negative (Negative); Protein Urine Trace (Negative); Specific Gravity Urine 1.029 (1.000-1.030); Urobilinogen Urine Negative (Negative); WBC Urine Automated 0-5 /hpf (0-5); pH Urine 5.5 (4.5-7.5)
[2024-10-01 17:18] LABS: Adenovirus PCR Not Detected (NotDetected); Bordetella parapertussis PCR Not Detected (NotDetected); Bordetella pertussis PCR Not Detected (NotDetected); Chlamydia pneumoniae PCR Not Detected (NotDetected); Coronavirus 229E PCR Not Detected (NotDetected); Coronavirus CoV-2 (COVID19)PCR Not Detected (NotDetected); Coronavirus HKU1 PCR Not Detected (NotDetected); Coronavirus NL63 PCR Not Detected (NotDetected); Coronavirus OC43PCR Not Detected (NotDetected); Human Metapneumovirus PCR Not Detected (NotDetected); Influenza A PCR Not Detected (NotDetected); Influenza B PCR Not Detected (NotDetected); Mycoplasma pneumoniae PCR Not Detected (NotDetected); Parainfluenza Virus 1 PCR Not Detected (NotDetected); Parainfluenza Virus 2 PCR Not Detected (NotDetected); Parainfluenza Virus 3 PCR Not Detected (NotDetected); Parainfluenza Virus 4 PCR Not Detected (NotDetected); Respiratory Syncytial VirusPCR Not Detected (NotDetected); Rhinovirus/Enterovirus PCR Not Detected (NotDetected)
--- NOTE | 2024-10-01 17:35 | XRay Report ---
Clinical History: Chest pain Technique: A frontal view of the chest was obtained Findings: There are no confluent pulmonary infiltrates. The heart size is within normal limits. No pleural effusion or pneumothorax is seen. There is no definite pulmonary nodule. No fracture is noted. No foreign body is seen Impression: No active disease Electronically signed by Dionisio Pepe 10-01-2024 5:34 PM
[2024-10-01] MEDS: MoRPHine SULFATE 4 MG/ML 1 ML CARP\\VIAL IV STA ×2 (17:42→20:17)
[2024-10-01] MEDS: ONDANSETRON INJ 2 MG/ML 2 ML VIAL IV STA (17:42)
[2024-10-01] MEDS: OPTIRAY 320 100ml IV ONE (18:26)
--- NOTE | 2024-10-01 18:43 | CT Scan Report ---
Clinical History: Abdominal pain Technique: Axial computed tomography images were obtained of the abdomen and pelvis after the administration of intravenous contrast. Comparison is made to the prior CT dated 01/10/2018 Findings: The liver is enlarged measuring 21.3 cm. There is sign of cirrhosis or significant fatty infiltration. No liver mass lesion is seen. The portal vein is patent. The gallbladder appears unremarkable. No bile duct dilatation is noted. The spleen is mildly enlarged measuring 14 cm. No focal splenic lesion is evident. The pancreas appears normal with no sign of acute or chronic pancreatitis and no mass lesion noted. The pancreatic duct is of normal caliber. The adrenal glands appear unremarkable. No definite renal or proximal ureteral calculi are seen on this contrast-enhanced study. There is no hydronephrosis or perinephric stranding. No renal mass lesion is identified. The aorta is of normal caliber. No abdominal adenopathy is seen. The stomach appears normal. There is no sign of small bowel obstruction. The colon appears unremarkable. There is no sign of appendicitis. No free intraperitoneal fluid or air is identified. No distal ureteral or bladder calculi are seen. No bladder mass lesion is evident. The iliac arteries are of normal caliber. No pelvic adenopathy is noted. The lungs bases appear clear. No fracture is identified. No focal osseous lesion is seen Impression: 1. Hepatomegaly 2. Mild splenomegaly Electronically signed by Dionisio Pepe 10-01-2024 6:43 PM
[2024-10-01] MEDS: SODIUM CHLORIDE 0.9% 500 ML IV ONE (19:16)
[2024-10-01] MEDS: cefTRIAXone SODIUM 2,000 MG/50 ML BAG IV STA (19:18)
--- NOTE | 2024-10-01 20:04 | CT Scan Report ---
CT head without contrast History: Headache Comparison: None Technique: Using multidetector thin collimation helical acquisition technique, axial, coronal and sagittal CT images from the skull base to the vertex were obtained without intravenous contrast. Dose reduction techniques were achieved by using automatic exposure control and/or adjustment of mA and/or kV according to patient size and/or use of iterative reconstruction technique. Findings: No intracranial hemorrhage, mass-effect, or midline shift. The ventricles are proportionate to the cerebral sulci. The beltran to white matter differentiation of the cerebral hemispheres is preserved. The basal cisterns are patent. The visualized paranasal sinuses are clear. Mastoid air cells are clear. Impression: No acute intracranial pathology. Calcifications in the basal ganglia bilaterally, may be from prior toxic/metabolic abnormality, or idiopathic. Electronically signed by Manuel Rose 10-01-2024 8:04 PM
--- NOTE | 2024-10-01 22:06 | History & Physical Report ---
Date of Service October 01, 2024 Assessment & Plan (1) Hypotension: Plan: 44-year-old male with past medical history significant for depression, hypertension, presents with rectal bleed ,abdominal discomfort, low back pain and shaking chills. Patient says he was somewhat constipated and had a hard bowel movement around 10:00am in the morning associated with rectal bleed. After that he was doing okay. Had episodes of constipation and rectal bleeds in the past. Around 2 PM suddenly started having abdominal discomfort ,backache and shaking chills and rigors. He has to put on a blanket. During the episode he was feeling short of breath. Was feeling nauseous. And when the symptoms started he was having a lot of leg pains. He took Motrin at 2:15 PM. As the symptoms started suddenly and has was not feeling well came to the ER. On the way to the hospital he felt somewhat lightheaded. In 2017 patient had exploratory laparotomy with removal of foreign body from small bowel and repair of small bowel perforation and umbilical hernia repair and since then patient thinks his bowel movements are changed. Gets constipated on and off. Last was constipated took MiraLAX and after that had a bowel movement and had small blood in the stool at that time. Patient had colonoscopy in 2021 for rectal bleeding and showed normal colon. Normal ileum. Small internal hemorrhoids seen on anoscopy. Also small acute appearing posterior midline fissure seen on perianal exam at that time. Today in the ER rectal exam was done by ER and found to have an anal fissure at 6 o'clock position and was significantly tender to palpation and minimally enlarged internal hemorrhoids seen. In the ER patient became hypotensive requiring aggressive fluid bolus. With the fluids blood pressure improved. Currently blood pressure is okay. Abdominal pain and back pain is better. Currently denies chest pain. No shortness. No fevers. Was having headache when he came in that is improved now. No neck pain. During the episode nose was runny. No cough. Currently resting comfortably. Hypotension Has leukocytosis Lactic acid is okay Hemoglobin, electrolytes, creatinine and LFTs are okay Procalcitonin 1.3 Respiratory BioFire negative Lyme screen and Anaplasma and Babesia screen negative. patient presented with shaking chills abdominal discomfort and back pain Had constipation and rectal bleed earlier Has painful annual fissure on exam in the ER Possible sepsis from translocation of bacteria Received fluids and Rocephin in ER Currently blood pressure is improved Will continue IV fluids, start on IV Unasyn Clear liquid diet for now Close monitoring telemetry GI consult in a.m. for further recommendations History of hypertension Hold losartan for now as patient is hypotensive Depression Continue fluoxetine DVT prophylaxis SCDs for now Disposition Telemetry Full code. Addendum: On the floor again patient developed chills and tachycardia but BP ws ok. Started on unasyn . Chills resolved. But had backache and received Tylenol and dose of Toradol. Didnot sleep and in am was having headache. ordered a dose of duiladid 0.5mg. Close monitor.Will make him npo as hb dropped to 12.5 in am labs. History of Present Illness Chief Complaint: Rectal bleed, abdominal pain and shaking chills Primary Care Provider: Tremaine Rose DO 44-year-old male with past medical history significant for depression, hypertension, presents with rectal bleed ,abdominal discomfort, low back pain and shaking chills. Patient says he was somewhat constipated and had a hard bowel movement around 10:00am in the morning associated with rectal bleed. After that he was doing okay. Had episodes of constipation and rectal bleeds in the past. Around 2 PM suddenly started having abdominal discomfort ,backache and shaking chills and rigors. He has to put on a blanket. During the episode he was feeling short of breath. Was feeling nauseous. And when the symptoms started he was having a lot of leg pains. He took Motrin at 2:15 PM. As the symptoms started suddenly and has was not feeling well came to the ER. On the way to the hospital he felt somewhat lightheaded. In 2017 patient had exploratory laparotomy with removal of foreign body from small bowel and repair of small bowel perforation and umbilical hernia repair and since then patient thinks his bowel movements are changed. Gets constipated on and off. Last was constipated took MiraLAX and after that had a bowel movement and had small blood in the stool at that time. Patient had colonoscopy in 2021 for rectal bleeding and showed normal colon. Normal ileum. Small internal hemorrhoids seen on anoscopy. Also small acute appearing posterior midline fissure seen on perianal exam at that time. Today in the ER rectal exam was done by ER and found to have an anal fissure at 6 o'clock position and was significantly tender to palpation and minimally enlarged internal hemorrhoids seen. In the ER patient became hypotensive requiring aggressive fluid bolus. With the fluids blood pressure improved. Currently blood pressure is okay. Abdominal pain and back pain is better. Currently denies chest pain. No shortness. No fevers. Was having headache when he came in that is improved now . No neck pain. During the episode nose was runny. No cough. Currently resting comfortably. Past medical history. As mentioned above Past surgical history. Colonoscopy. Exploration of abdomen due to small wire causing a perforation small bowel, no bowel reconstruction needed. Social history. . Quit smoking 2017. Alcohol occasional. No drug use. Family history. Paternal grandfather had diabetes and renal failure. Father had pituitary tumor status post removal. Allergies Allergy/AdvReac Type Severity Reaction Status Date / Time No Known Allergies Allergy Unverified 01/10/18 10:57 Home Medications Medication Instructions Recorded Confirmed Type fluoxetine 40 mg capsule 40 mg PO DAILY 10/01/24 10/01/24 History losartan 50 mg tablet 50 mg PO DAILY 10/01/24 10/01/24 History semaglutide 2 mg/dose (8 mg/3 mL) 2 mg subcut WK 10/01/24 10/01/24 History subcutaneous pen injector (Ozempic) Past Med/Surg History Problem List (Updated 10/02/24 @ 01:41 by Trista Coello PA-C) Dehydration (Acute) Headache (Acute) Rigors (Acute) Body aches (Acute) Bright red rectal bleeding (Acute) Acute hypotension (Acute) Anal fissure (Acute) Tachycardia (Acute) Hypotension Perforation of small intestine due to foreign object Social History Smoking Status: Never smoker Hx Alcohol Use: Yes Alcohol type: wine Hx Substance Use: No Preferred Language: Gabonese Communication Ability: Effective Instrument Tester Required: No Beliefs That Will Affect Care: None Current Living Situation: Spouse and Family Feels Safe at Home: Yes Safety Concerns: Feels Safe At This Time Assistive Devices: None Review of Systems Review of Systems: All systems reviewed & are unremarkable except as noted in HPI & below Physical Exam Physical Exam: General- Not in acute distress. Head- atraumatic Eyes- PERRL. ENT- oropharynx clear Neck- supple, no JVD. Lungs- clear to auscultation no wheezing or crackles. Heart- regular rate and rhythm; no murmur, no gallop. Abdomen- normal bowel sounds, soft, nontender, no distension Extremities- no pretibial edema, no erythema seen Neuro- alert, oriented PERRL, no facial palsy; no dysarthria; moves extremities Results & Data Results & Data Vital Signs (Past 12 Hours) Vital Signs Temp Pulse Pulse Resp BP BP Pulse Ox 10/01/24 20:00 90 16 88/64 L 96 10/01/24 18:00 96 H 18 113/72 96 10/01/24 16:39 109 H 10/01/24 16:27 120 H 18 95 10/01/24 16:27 116 H 13 108/73 95 10/01/24 15:15 36.9 C 132 H 18 123/85 97 O2 Del Method 10/01/24 20:00 Room Air 10/01/24 18:00 Room Air 10/01/24 16:39 10/01/24 16:27 Room Air 10/01/24 16:27 Room Air 10/01/24 15:15 Room Air Diagnostic Findings Laboratory Results WBC 13.56 K/ul (4.8-10.8) H 10/01/24 15:23 RBC 5.38 M/uL (4.70-6.10) 10/01/24 15:23 Hgb 15.0 g/dl (14.0-18.0) 10/01/24 15:23 Hct 42.6 % (42.0-52.0) 10/01/24 15:23 MCV 79.2 fL (80.0-100.0) L 10/01/24 15:23 MCH 27.9 pg (25.0-34.0) 10/01/24 15: MCHC 35.2 g/dL (32.0-36.0) 10/01/24 15:23 RDW Std Deviation 36.7 fL (36.4-46.3) 10/01/24 15: RDW Coeff of Frida 13.0 % (11.5-14.5) 10/01/24 15: Plt Count 275 K/uL (130-400) 10/01/24 15:23 MPV 8.7 fL (9.4-12.4) L 10/01/24 15:23 PT 10.9 Seconds (9.0-12.0) 10/01/24 15:23 INR 1.0 (0.9-1.1) 10/01/24 15:23 APTT 27 Seconds (21-31) 10/01/24 15:23 PTT Ratio 1.0 10/01/24 15:23 Sodium 138 mmol/L (136-145) 10/01/24 15:23 Potassium 3.9 mmol/L (3.5-5.1) 10/01/24 15:23 Chloride 105 mmol/L (98-107) 10/01/24 15:23 Carbon Dioxide 24 mmol/L (21-32) 10/01/24 15:23 Anion Gap 9 (3-11) 10/01/24 15:23 BUN 19 mg/dl (6-23) 10/01/24 15:23 Creatinine 1.11 mg/dl (0.6-1.4) 10/01/24 15:23 Est Cr Clr Drug Dosing 106.0 ml/min 10/01/24 15:23 eGFR 83.98 10/01/24 15:23 BUN/Creatinine Ratio 17.1 (10-20) 10/01/24 15:23 Glucose 94 mg/dl (70-99(Fasting)) 10/01/24 15:23 Lactate 1.4 mmol/L (0.4-2.0) 10/01/24 17:52 Calcium 9.3 mg/dl (8.6-10.3) 10/01/24 15:23 Total Bilirubin 0.7 mg/dl (0.2-1.0) 10/01/24 15:23 AST 25 U/L (13-39) 10/01/24 15:23 ALT 40 U/L (7-52) 10/01/24 15:23 Alkaline Phosphatase 60 U/L (34-104) 10/01/24 15:23 Total Creatine Kinase 82 U/L (30-223) 10/01/24 15:23 Troponin I High Sens 3.5 pg/ml (0-20) 10/01/24 15:23 Total Protein 7.1 gm/dl (6.0-8.3) 10/01/24 15:23 Albumin 4.3 gm/dl (3.4-5.0) 10/01/24 15:23 Globulin 2.8 gm/dl (2.5-4.0) 10/01/24 15:23 Albumin/Globulin Ratio 1.5 (0.9-2) 10/01/24 15:23 Procalcitonin 1.36 ng/ml (0-0.5) H 10/01/24 17:52 Urine Color Dark Yellow 10/01/24 16:44 Urine Appearance Cloudy (Clear) A 10/01/24 16:44 Urine pH 5.5 (4.5-7.5) 10/01/24 16:44 Ur Specific [place] 1.029 (1.000-1.030) 10/01/24 16:44 Urine Protein Trace (Negative) H 10/01/24 16:44 Urine Glucose (UA) Negative (Negative) 10/01/24 16:44 Urine Ketones 1+ (Negative) H 10/01/24 16:44 Urine Blood Negative (Negative) 10/01/24 16:44 Urine Nitrite Negative (Negative) 10/01/24 16:44 Urine Bilirubin 1+ (Negative) H 10/01/24 16:44 Urine Urobilinogen Negative (Negative) 10/01/24 16:44 Ur Leukocyte Esterase Negative (Negative) 10/01/24 16:44 Urine WBC (Auto) 0-5 /hpf (0-5) 10/01/24 16:44 Urine RBC (Auto) 3-5 /hpf (0-2) H 10/01/24 16:44 U Hyaline Cast (Auto) 3-5 /lpf (0-2) H 10/01/24 16:44 U Epithel Cells (Auto) 0-2 /hpf (0-2) 10/01/24 16:44 Urine Bacteria (Auto) None Seen (None Seen) 10/01/24 16:44 Calcium Oxalate Crystal Present (None Prsent) A 10/01/24 16:44 Adenovirus (PCR) Not Detected (NotDetected) 10/01/24 15:17 Anaplasma Smear See Comment 10/01/24 19:30 Babesia Smear See Comment 10/01/24 19:30 B. pertussis DNA (PCR) Not Detected (NotDetected) 10/01/24 15:17 B.parapertussis DNA PCR Not Detected (NotDetected) 10/01/24 15:17 Lyme Disease Screen Negative (Negative) 10/01/24 19:30 C. pneumoniae DNA (PCR) Not Detected (NotDetected) 10/01/24 15:17 Coronavirus OC43 (PCR) Not Detected (NotDetected) 10/01/24 15:17 Coronavirus HKU1 (PCR) Not Detected (NotDetected) 10/01/24 15:17 Coronavirus 229E (PCR) Not Detected (NotDetected) 10/01/24 15:17 SARS-CoV-2 (PCR) Not Detected (NotDetected) 10/01/24 15:17 Coronavirus NL63 (PCR) Not Detected (NotDetected) 10/01/24 15:17 Monoscreen Negative (Negative) 10/01/24 17:52 Human Metapneumovir PCR Not Detected (NotDetected) 10/01/24 15:17 Influenza Type A (PCR) Not Detected (NotDetected) 10/01/24 15:17 Influenza Type B (PCR) Not Detected (NotDetected) 10/01/24 15:17 M. pneumoniae (PCR) Not Detected (NotDetected) 10/01/24 15:17 Parainfluenza 1 (PCR) Not Detected (NotDetected) 10/01/24 15:17 Parainfluenza 2 (PCR) Not Detected (NotDetected) 10/01/24 15:17 Parainfluenza 3 (PCR) Not Detected (NotDetected) 10/01/24 15:17 Parainfluenza 4 (PCR) Not Detected (NotDetected) 10/01/24 15:17 RSV (PCR) Not Detected (NotDetected) 10/01/24 15:17 Entero/Rhino (PCR) Not Detected (NotDetected) 10/01/24 15:17 Blood Type A Positive 10/01/24 15:23 Antibody Screen NEGATIVE 10/01/24 15:23 Impressions Abdomen/Pelvis CT 10/01/24 17:21 Clinical History: Abdominal pain Technique: Axial computed tomography images were obtained of the abdomen and pelvis after the administration of intravenous contrast. Comparison is made to the prior CT dated 01/10/2018 Findings: The liver is enlarged measuring 21.3 cm. There is sign of cirrhosis or significant fatty infiltration. No liver mass lesion is seen. The portal vein is patent. The gallbladder appears unremarkable. No bile duct dilatation is noted. The spleen is mildly enlarged measuring 14 cm. No focal splenic lesion is evident. The pancreas appears normal with no sign of acute or chronic pancreatitis and no mass lesion noted. The pancreatic duct is of normal caliber. The adrenal glands appear unremarkable. No definite renal or proximal ureteral calculi are seen on this contrast-enhanced study. There is no hydronephrosis or perinephric stranding. No renal mass lesion is identified. The aorta is of normal caliber. No abdominal adenopathy is seen. The stomach appears normal. There is no sign of small bowel obstruction. The colon appears unremarkable. There is no sign of appendicitis. No free intraperitoneal fluid or air is identified. No distal ureteral or bladder calculi are seen. No bladder mass lesion is evident. The iliac arteries are of normal caliber. No pelvic adenopathy is noted. The lungs bases appear clear. No fracture is identified. No focal osseous lesion is seen Impression: 1. Hepatomegaly 2. Mild splenomegaly Electronically signed by Dionisio Pepe 10-01-2024 6:43 PM Chest X-Ray 10/01/24 17:21 Clinical History: Chest pain Technique: A frontal view of the chest was obtained Findings: There are no confluent pulmonary infiltrates. The heart size is within normal limits. No pleural effusion or pneumothorax is seen. There is no definite pulmonary nodule. No fracture is noted. No foreign body is seen Impression: No active disease Electronically signed by Dionisio Pepe 10-01-2024 5:[address] 10/01/24 19:03 CT head without contrast History: Headache Comparison: None Technique: Using multidetector thin collimation helical acquisition technique, axial, coronal and sagittal CT images from the skull base to the vertex were obtained without intravenous contrast. Dose reduction techniques were achieved by using automatic exposure control and/or adjustment of mA and/or kV according to patient size and/or use of iterative reconstruction technique. Findings: No intracranial hemorrhage, mass-effect, or midline shift. The ventricles are proportionate to the cerebral sulci. The beltran to white matter differentiation of the cerebral hemispheres is preserved. The basal cisterns are patent. The visualized paranasal sinuses are clear. Mastoid air cells are clear. Impression: No acute intracranial pathology. Calcifications in the basal ganglia bilaterally, may be from prior toxic/metabolic abnormality, or idiopathic. Electronically signed by Manuel Rose 10-01-2024 8:04 PM ECG Additional Comments: ECG. Sinus tachycardia rate of 110. Incomplete right bundle branch block. No acute ST changes seen. Code Status & VTE Plan VTE Prophylaxis Plan VTE Prophylaxis will be ordered: Yes
[2024-10-01] MEDS ORDERED: ONDANSETRON INJ 2 MG/ML 2 ML VIAL IV PRN (23:04)
[2024-10-01] MEDS: SODIUM CHLORIDE 0.9% 1,000 ML IV SCH (23:15)
[2024-10-01] MEDS: AMPICILLIN/SULBACTAM SOD 3,000 MG/100 ML BAG IV SCH (23:43)
[2024-10-02] MEDS: ACETAMINOPHEN 1,000 MG/100 ML VIAL IV PRN (00:21)
[2024-10-02] MEDS: KETOROLAC TROMETHAMINE 15 MG/ML VIAL IV ONE (02:33)
--- OUTSIDE RECORDS SUMMARY | 2024-10-02 03:34 | External Medical Summary | Summary of Care ---
Author Name Unknown Organization [facility] Address [address] [place] [address] Phone [phone] Care Team Providers Care Natural Resource Technician Name Role Phone Rose Tremaine Lainezannie Primary Care Provider Reason for Visit * Reason Onset Date Comments FYI 04/03/2024 Encounter Details Date Type Department Care Team (Late st Contact Info) Description 04/03/2024 Telephone Nutrition & Weight Management, [facility] [address] [place] [address] Shari Gallegos PA-C [address] [place] [address] FYI Allergies No known active allergiesdocumented as of this encounter (statuses as of 05/09/2024) Medications Medication Sig Dispensed Refills Start Date End Date Status CPAP every night at bedtime . Active diltiazem 2% 2% RE GEL Administer into the rectum 1 Application Dosing Unit 3 times a day . 1 Tube 1 05/27/2022 Active FLUoxetine HCl 40 MG Oral Capsule (PROzac)Indications :Moderate episode of recurrent major depressive disorder (HCC) Take 1 Capsule by mouth in the morning. 90 Capsule 3 07/27/2023 Active Losartan Potassium 50 MG Oral Tablet (Cozaar)Indications :HTN, goal below 140/90 Take 1 Tablet by mouth in the morning. 90 Tablet 3 11/15/2023 Active Ozempic (2 MG/DOSE) 8 MG/3ML Subcutaneous Solution Pen-injector (Semaglutide (2 MG/DOSE))Indication s:Obesity, Class I, BMI 30.0-34.9 (see actual BMI) Inject 2 mg under the skin once a week. 9 mL 2 12/29/2023 Active documented as of this encounter (statuses as of 05/09/2024) Active Problems Problem Noted Date Diagnosed Date Moderate episode of recurrent major depressive d isorder 11/14/2023 FAM HX-DIABETES MELLITUS 01/09/2002 documented as of this encounter (statuses as of 05/09/2024) Resolved Problems Problem Noted Date Diagnosed Date Resolved Date Prediabetes 01/03/2022 12/07/2023 Overview: Per Prediabetes protocol documented as of this encounter (statuses as of 05/09/2024) Immunizations Name Administration Dates Next Due COVID-19 mRNA, LNP-s, No Pre serve, 2-Dose Series (Polimetrix) 07/17/2021,12/08/2020,11/14/2020 HEP B - Hepatitis B (Adole/H igh Risk Ped, 11-15 yrs 09/08/2000 IPV - Polio Virus Vaccine (Inact) 11/02/1981,02/1981,1980 MMR-FAN - Measles/Mumps/Rubella/Varicella 10/06/1989,03/26/1982 PPD 04/29/2000 Seasonal Influenza, PF, 6 M & above, IM , (FluLaval or Fluzone) 11/14/2023,06/21/2022,06/01/2021,2 020,10/21/2019,05/29/2018,05/24/2017 TD - Tetanus/Diptheria (ADULT) 05/13/1997 TDAP (age 10 and older)(Boostrix) 10/06/2017 documented as of this encounter Social History Tobacco Use Types Packs/Day Years Used Date Smoking Tobacco: Former Smokeless Tobacco: Former Chew Quit: 09/04/2017 Alcohol Use Standard Drinks/Week Comments Yes 0 (1 standard drink = 0.6 oz pur e alcohol) occasional PHQ-2 Answer Date Recorded PHQ Adult Total Score 1 11/14/2023 Hunger Vital Sign Answer Date Recorded Within the past 12 months, y ou worried that your food would run out before you got the money to buy more. Never true 03/13/20 23 Within the past 12 months, t he food you bought just didn't last and you didn't have money to get more. Never true 03/13/2023 Childcare Answer Date Recorded Do you feel overwhelmed with taking care of a child, family member or friend? No 03/13/2023 Does your family need help f inding childcare? (Household - for ages 0-17 years) Not on file 03/13/2023 Clothing Answer Date Recorded Have you been unable to get clothing when it was really needed? No 03/13/2023 Is your family able to get c lothes or diapers when needed? (Household - for ages 0-17 years) Not on file 03/13/2023 Personal Safety Answer Date Recorded Do you feel unsafe or have concerns for your saf ety? No 03/13/2023 Do you have concerns for you r family's safety? (Household - for ages 0-17 years) Not on file 03/13/2023 Utilities Answer Date Recorded Do you have trouble paying y our heating, water, or electric bill? (Adult - for ages 18 years and over) Not on file 03/19/2024 Is your family able to pay t he heat, water, or electric bill? (Household - for ages 0-17 years) Not on file 03/19/2024 Does your family have access to good internet? (Household - for ages 0-17 years) Not on file 03/19/2024 Employment Status Answer Date Recorded Are you unemployed or without regular income? No 03/13/2023 Does the household have a re lar source of income? (Household - for ages 0-17 years) Not on file 03/13/2023 Social Connections Answer Date Recorded How often do you feel lonely or isolated from those around you? (Adult - for ages 18 years and over) Not on file 03/19/2024 Financial Resource Strain Answer Date R ecorded Do you have any trouble payi ng for your medications, or do you think you might in the future? No 03/13/2023 Does your family have troubl e paying for medicine? (Household - for ages 0-17 years) Not on file 03/13/2023 Transportation Needs Answer Date Record ed READ ONLY Do you have troubl e getting a ride to medical visits or work? Never True 03/13/2023 Does your family have a hard time getting a ride to doctors visits? (Household - for ages 0-17 years) Not on file 03/13/2023 Has lack of transportation k ept you from medical appointments, meetings, work, or from getting things needed for daily living? Check all that apply. (Adult - for ages 18 years and over) Not on file 03/13/2023 Do you (or your family) have trouble finding or paying for a ride (transportation)? (Household - for ages 0-17 years) Not on file 03/13/2023 Housing Stability Answer Date Recorded Do you currently live in a s helter or have no steady place to sleep at night? No 03/13/2023 READ ONLY Do you think you a re at risk of becoming homeless? No 03/13/2023 Does your family worry about paying for your home or becoming homeless? (Household - for ages 0-17 years) Not on file 0 03/13/2023 Are you homeless or worried that you might be in the future? (Adult - for ages 18 years and over) Not on file Are you (or your family) jeff eless or worried that you might be in the future? (Household - for ages 0-17 years) Not on file Food Insecurity Answer Date Recorded Do you need food for this week? No 03/13/2023 Are you able to get enough f ood for your family? (Household - for ages 0-17 years) Not on file 03/13/2023 Does your family need food t his week? (Household - for ages 0-17 years) Not on file 03/13/2023 Do you always have enough fo od for your family? (Household - for ages 0-17 years) Not on file 03/13/2023 Sex and Gender Information Value Date Recorded Sex Assigned at Male 03/13/2023 9:24 PM EDT Gender Identity Male 03/13/2023 9:24 PM EDT Sexual Orientation Straight 03/13/2023 9: 24 PM EDT Job Start Date Occupation Industry Not on file Not on file Not on file documented as of this encounter Miscellaneous Notes * Telephone Encounter - Maggie Benitez PHARM Tech - 05/09/2024 12:00 PM EDT Patient has not responded to my g message. Letter pended. Please send to patient at your earliest convenience. Thank You, Maggie Benitez [facility] Refrigerator Car Icer III [facility]) 05/09/2024, 12:00 PM * Telephone Encounter - Maggie Benitez PHARM Tech - 04/03/2024 11:59 AM EDT Please see my g message Thank You, Maggie Benitez [facility] Refrigerator Car Icer III [facility] ([facility]) 04/03/2024, 11:59 AM documented in this encounter Plan of Treatment Upcoming Encounters Date Type Department Care Team (Late st Contact Info) Description 11/14/2024 10:20 AM EDT Office Visit Family Practice [facility] [address] [place] [address] Tremaine Rose, [address] [place] [address] Health Maintenance Due Date Last Done Comments Hepatitis B Vaccine (2 of 3 - 19+ 3-dose series) 10/06/2000 09/08/2000 COVID-19 Vaccine ( season) 2024 07/17/2021, 12/08/2020, 11/14/2020 Influenza Vaccine (FLU shot) (#1) 2024 11/14/2023, 06/21/2022, 06/01/2021, Additional history exists Depression Monitoring 11/13/2024 11/14/2023 Diabetes Screening 11/13/2026 11/14/2023, 0 11/14/2023, 07/27/2022, Additional history exists DTap/Tdap Vaccines (3 - Td or Tdap) 10/06/2027 10/06/2017, 05/13/1997 Lipid Panel 11/13/2028 11/14/2023, 06/30, 12/21/2021, Additional history exists HIV Screening Discontinued HPV (Gardasil) Vaccine Aged Out No lo nger eligible based on patient's age to complete this topic MENINGOCOCCAL (MENACTRA/MENVEO) Aged Out No longer eligible based on patient's age to complete this topic Pneumococcal Vaccine: Pediatrics (0 to 5 Years) and At-Risk Patients (6 to 64 Years) Aged Out No longer eligible based on patient's age to complete this topic documented as of this encounter Medical Devices Not on filedocumented as of this encounter Care Teams Natural Resource Technician Relationship Specialty Start Date End Date Tremaine Rose DO [address] [place] [address] PCP - General Family Medicine 01/24/21 documented as of this encounter
--- OUTSIDE RECORDS SUMMARY | 2024-10-02 03:34 | External Medical Summary | Summary of Care ---
Author Name Unknown Organization [facility] Address [address] [place] [address] Phone [phone] Care Team Providers Care Head Bander And Liner Operator Name Role Phone Rose Tremaine Lainezannie Primary Care Provider Reason for Visit * Reason Onset Date Comments FYI 04/03/2024 Encounter Details Date Type Department Care Team (Late st Contact Info) Description 04/03/2024 Telephone Nutrition & Weight Management, [facility] [address] [place] [address] Shari Gallegos PA-C [address] [place] [address] FYI Allergies No known active allergiesdocumented as of this encounter (statuses as of 05/13/2024) Medications Medication Sig Dispensed Refills Start Date [...] as of this encounter (statuses as of 05/13/2024) Active Problems Problem Noted Date Diagnosed Date Moderate episode of recurrent major depressive d isorder 11/14/2023 FAM HX-DIABETES MELLITUS 01/09/2002 documented as of this encounter (statuses as of 05/13/2024) Resolved Problems Problem Noted Date Diagnosed Date Resolved Date Prediabetes 01/03/2022 12/07/2023 Overview: Per Prediabetes protocol documented as of this encounter (statuses as of 05/13/2024) Immunizations Name Administration Dates Next Due COVID-19 mRNA, LNP-s, No Pre serve, 2-Dose Series (Savage IO) 07/17/2021,12/08/2020,11/14/2020 HEP B - Hepatitis B (Adole/H [...] your earliest convenience. Thank You, Maggie Benitez [facility] Speech Language Pathology Assistant III [facility]) 05/09/2024, 12:00 PM * Telephone Encounter - Maggie Benitez PHARM Tech - 04/03/2024 11:59 AM EDT Please see my g message Thank You, Maggie Benitez [facility] Speech Language Pathology Assistant III [facility] ([facility]) 04/03/2024, 11:59 AM documented in this encounter Plan of Treatment Upcoming Encounters Date Type Department Care Team (Late st Contact Info) Description 11/14/2024 10:20 AM EDT Office Visit Family Practice [facility] [address] [address] Tremaine Rose, [address] [place] [address] Health Maintenance Due Date Last Done Comments [...] filedocumented as of this encounter Care Teams Head Bander And Liner Operator Relationship Specialty Start Date End Date Tremaine Rose DO [address] [place] [address] PCP - General Family Medicine 01/24/21 documented as of this encounter
--- OUTSIDE RECORDS SUMMARY | 2024-10-02 03:34 | External Medical Summary | Summary of Care ---
Author Name Unknown Organization [facility] Address [address] [place] [address] Phone [phone] Care Team Providers Care Strainer Tender Name Role Phone Rose Tremaine Lainezannie Primary Care Provider Reason for Visit * Reason Onset Date Comments FYI 04/03/2024 Encounter Details Date Type Department Care Team (Late st Contact Info) Description 04/03/2024 Telephone [facility] [address] [place] [address] Shari Gallegos PA-C [address] [place] [address] FYI Allergies No known active allergiesdocumented as [...] mRNA, LNP-s, No Pre serve, 2-Dose Series (Shooger) 07/17/2021,12/08/2020,11/14/2020 HEP B - Hepatitis B (Adole/H [...] your earliest convenience. Thank You, Maggie Benitez [facility] Syrup Filterer III [facility] ([facility]) 05/09/2024, 12:00 PM * Telephone Encounter - Maggie Benitez PHARM Tech - 04/03/2024 11:59 AM EDT Please see my g message Thank You, Maggie Benitez [facility] Syrup Filterer III [facility] ([facility]) 04/03/2024, 11:59 AM documented in this encounter Plan of Treatment Upcoming Encounters Date Type Department Care Team (Late st Contact Info) Description 11/14/2024 10:20 AM EDT Office Visit [facility] Practice [facility] [address] [address] Tremaine Rose, [address] [place] [address] Health Maintenance Due Date Last Done Comments [...] filedocumented as of this encounter Care Teams Strainer Tender Relationship Specialty Start Date End Date Tremaine Rose DO [address] [place] [address] PCP - General Family Medicine 01/24/21 documented as of this encounter
--- OUTSIDE RECORDS SUMMARY | 2024-10-02 03:34 | External Medical Summary | Summary of Care ---
Author Name Unknown Organization [facility] Address [address] [place] [address] Phone [phone] Care Team Providers Care Business Strategy Manager Name Role Phone Fredi Roser Eryn Primary Care Provider Reason for Visit * Reason Onset Date Comments Precert Approved 08/14/2024 OZEMPIC Encounter Details Date Type Department Care Team (Late st Contact Info) Description 08/14/2024 Telephone Nutrition & Weight Management, [facility] [address] [place] [address] Shari Gallegos PA-C [address] [place] [address] Precert Approved (OZEMPIC) Allergies No known active allergiesdocumented as of this encounter (statuses as of 08/23/2024) Medications CPAP every night at bedtime . Active diltiazem 2% 2% RE GEL Administer into the rectum 1 Application Dosing Unit 3 times a day . 1 Tube 1 2 Active FLUoxetine HCl 40 MG Oral Capsule (PROzac)Indicati ons:Moderate episode of recurrent major depressive disorder (HCC) Take 1 Capsule by mouth in the morning. 90 Capsule 3 05/20/2024 7:46 AM EDT 3 Active Losartan Potassium 50 MG Oral Tablet (Cozaar)Indicati ons:HTN, goal below 140/90 Take 1 Tablet by mouth in the morning. 90 Tablet 3 06/14/2024 3:12 PM EDT 4 Active Ozempic (2 MG/DOSE) 8 MG/3ML Subcutaneous Solution Pen-injector (Semaglutide (2 MG/DOSE))Indicat ions:Obesity, Class I, BMI 30.0-34.9 (see actual BMI) Inject 2 mg under the skin once a week. 9 mL 2 08/16/2024 8:01 AM EST 4 Active documented as of this encounter (statuses as of 08/23/2024) Active Problems Problem Noted Date Diagnosed Date Moderate episode of recurrent major depressive d isorder 11/14/2023 FAM HX-DIABETES MELLITUS 01/09/2002 documented as of this encounter (statuses as of 08/23/2024) Resolved Problems Problem Noted Date Diagnosed Date Resolved Date Prediabetes 01/03/2022 12/07/2023 Overview: Per Prediabetes protocol documented as of this encounter (statuses as of 08/23/2024) Immunizations Name Administration Dates Next Due COVID-19 mRNA, LNP-s, No Pre serve, 2-Dose Series (Concuity) 07/17/2021,12/08/2020,11/14/2020 Seasonal Influenza, PF, 6 M & above, IM , (FluLaval or Fluzone) 11/14/2023,06/21/2022,06/01/2021, 0 20,10/21/2019,05/29/2018,05/24/2017 TDAP (age 10 and older)(Boostrix) 10/06/2017 documented [...] 03/13/2023 Does the household have a re gular source of income? 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 Type Date User Summary Attachment Precert 08/16/2024 6:44 AM Moustapha Lamar OSA Please see scanned fax from insurance under the Media Tab. - Note: Please see scanned fax from insurance under the Media Tab. Approved/Denied: approved Drug Name and Formulation: OZEMPIC 2 MG/DOSE (8 MG/3 ML) How Prescribed(directions/sig): Sig - Route: Inject 2 mg under the skin once a week. - Subcutaneous Qty and Day Supply: 3ML PER 28 DAYS PER INSURANCE Did you receive insurance information from outside the chart? No, received insurance information within the chart Valid auth start date: 08/15/2024 Valid auth end date: 08/27/2099 Rx Insurance Info: [facility] [place] Reference #: [id number] Moustapha Lamar Medication Scrap Bunch Maker II 08/16/24,6:42 AM . Type Date User Summary Attachment Precert 08/14/2024 10:48 AM Moustapha Lamar OSA [facility] Authorization Submission - Note: [facility] Authorization Submission Submission Information: Medication: OZEMPIC 2 MG/DOSE (8 MG/3 ML) Portal used: [place] Insurance: [facility] Authorization #/[place]: [id number] * Telephone Encounter - Surinder Duckworth LPN - 08/14/2024 9:57 AM EST Please Start prior authorization for Ozempic (2 MG/DOSE) 8 MG/3ML Subcutaneous Solution Pen-injector (Semaglutide (2 MG/DOSE)) Diagnosis Obesity, Class I, BMI 30.0-34.9 (see actual BMI) [E66.9] SONJA G47.33 Prediabetes R73.03 Hypertension I10 Dyslipidemia E78.5 Patient qualifies for Weight loss medication due to BMI >30 or BMI >27 with obesity related comorbidity BMI Readings from Last 2 Encounters: 06/03/24 30.16 kg/m 12/29/23 30.49 kg/m Wt Readings from Last 2 Encounters: 06/03/24 98.8 kg (217 lb 12.8 oz) 12/29/23 99.9 kg (220 lb 3.2 oz) Shari Gallegos PA-c * Telephone Encounter - Mi Victor CPhT - 08/14/2024 8:14 AM EST Pharmacy calling to inform doctor that the patient's insurance will not pay for this medication without a completed prior authorization. Did confirm this information with the pharmacy. Pt's current insurance information is as follows: Patient name: Saulo Morales ID number: [id number] BIN number: [id number] PCN number: [id number] Group number: none Subscriber name: Saulo Morales Primary or Secondary Insurance:Primary Medication: ozempic 8mg/3ml Reason for Request: prior auth required Pharmacy and phone number: [facility] [phone] Rx plan and phone number: [facility] [phone] Is this a new medication for the patient? No. How did the patient obtain the medication on the lastfill? It was covered last time on this same insurance. What alternative medications does the pharmacy have in stock?: none Thank you, Mi Victor CphT Screener And Blender III [facility]) 08/14/24 documented in this encounter Plan of Treatment Upcoming Encounters Date Type Department Care Team (Late st Contact Info) Description 11/14/2024 10:20 AM EDT Office Visit Family [facility] [address] [address] Tremaine Rose DO [address] [place] [address] Health Maintenance Due Date Last Done Comments Hepatitis B Vaccine (2 of 3 - 19+ 3-dose series) 10/06/2000 09/08/2000 Influenza Vaccine (FLU shot) (#1) 2024 11/14/2023, 06/21/2022, 06/01/2021, Additional history exists Depression Monitoring 11/13/2024 11/14/2023 Diabetes Screening 11/13/2026 11/14/2023, 0 11/14/2023, 07/27/2022, Additional history exists DTap/Tdap Vaccines (3 - Td or Tdap) 10/06/2027 10/06/2017, 05/13/1997 Lipid Panel 11/13/2028 11/14/2023, 06/30, 12/21/2021, Additional history exists COVID-19 Vaccine Discontinued 07/17/2021, , 11/14/2020 HIV Screening Discontinued HPV (Gardasil) Vaccine Aged Out No lo nger eligible based on patient's age to complete this topic MENINGOCOCCAL (MENACTRA/MENVEO) Aged Out No longer eligible based on patient's age to complete this topic Pneumococcal Vaccine: Pediatrics (0 to 5 Years) and At-Risk Patients (6 to 18 Years and 19+ Years) Aged Out No longer eligib le based on patient's age to complete this topic documented as of this encounter Medical Devices Not on filedocumented as of this encounter Care Teams Business Strategy Manager Relationship Specialty Start Date End Date Tremaine Rose DO [address] [place] [address] PCP - General Family Medicine 01/24/21 documented as of this encounter
--- OUTSIDE RECORDS SUMMARY | 2024-10-02 03:34 | External Medical Summary | Summary of Care ---
Author Name Unknown Organization [facility] Address [address] [place] [address] Phone [phone] Care Team Providers Care Certified Orthoptist Name Role Phone Rose Tremaine Lainezannie Primary Care Provider Reason for Visit * Reason Onset Date Comments FYI 04/03/2024 Encounter Details Date Type Department Care Team (Late st Contact Info) Description 04/03/2024 Telephone Nutrition & Weight Management, [facility] [address] [place] [address] Shari Gallegos PA-C [address] [place] [address] FYI Allergies No known active allergiesdocumented as [...] mRNA, LNP-s, No Pre serve, 2-Dose Series (MeetCute) 07/17/2021,12/08/2020,11/14/2020 HEP B - Hepatitis B (Adole/H [...] your earliest convenience. Thank You, Maggie Benitez [facility] Compressor Assembler III [facility] ([facility]) 05/09/2024, 12:00 PM * Telephone Encounter - Maggie Benitez PHARM Tech - 04/03/2024 11:59 AM EDT Please see my g message Thank You, Maggie Benitez [facility] Compressor Assembler III [facility] ([facility]) 04/03/2024, 11:59 AM documented in this encounter Plan of Treatment Upcoming Encounters Date Type Department Care Team (Late st Contact Info) Description 11/14/2024 10:20 AM EDT Office Visit Family Practice [facility] [address] [address] Tremaine Rose, [address] [place] [address] Health Maintenance Due Date Last Done Comments [...] filedocumented as of this encounter Care Teams Certified Orthoptist Relationship Specialty Start Date End Date Tremaine Rose DO [address] [place] [address] PCP - General Family Medicine 01/24/21 documented as of this encounter
--- OUTSIDE RECORDS SUMMARY | 2024-10-02 03:34 | External Medical Summary | Summary of Care ---
Author Name Unknown Organization [facility] Address [address] [place] [address] Phone [phone] Care Team Providers Care Saw Boss Name Role Phone Gilberto Rosesara Lainezannie Primary Care Provider Reason for Visit * Reason Comments Acute Pt had been sick abo ut 3 weeks ago but since then he has been getting fevers off and on now for 2 weeks. Encounter Details Date Type Department Care Team (Late st Contact Info) Description 06/03/2024 2:40 PM EDT Office Visit Family Practice [facility] [address] [place] [address] Silviano Mccarthy MD [address] [place] [address] Walking pneumonia* Allergies No known active allergiesdocumented as of this encounter (statuses as of 06/03/2024) Medications Medication Sig Dispensed Refills Start Date [...] a week. 9 mL 2 12/29/2023 Active Azithromycin 250 MG Oral Tablet (Zithromax) Take 2 tabs by mouth on the first day, then 1 tab daily on days two through five 6 Tablet 06/03/2024 06/08/2024 Active documented as of this encounter (statuses as of 06/03/2024) Active Problems Problem Noted Date Diagnosed Date Moderate episode of recurrent major depressive d isorder 11/14/2023 FAM HX-DIABETES MELLITUS 01/09/2002 documented as of this encounter (statuses as of 06/03/2024) Resolved Problems Problem Noted Date Diagnosed Date Resolved Date Prediabetes 01/03/2022 12/07/2023 Overview: Per Prediabetes protocol documented as of this encounter (statuses as of 06/03/2024) Immunizations Name Administration Dates Next Due COVID-19 mRNA, LNP-s, No Pre serve, 2-Dose Series ([employer]) 07/17/2021,12/08/2020,11/14/2020 Seasonal Influenza, PF, 6 M & [...] on file documented as of this encounter Last Filed Vital Signs Vital Sign Reading Time Taken Comments Blood Pressure 126/86 06/03/2024 2:37 PM EDT Pulse 79 06/03/2024 2:37 PM EDT Temperature 36.1 C (97 F) 06/03/2024 2:37 PM EDT Respiratory Rate 16 06/03/2024 2:37 PM EDT Oxygen Saturation 98% 06/03/2024 2:37 PM EDT Inhaled Oxygen Concentration - - Weight 98.8 kg (217 lb 12.8 oz) 06/03/2024 2:37 PM EDT Height 181 cm (5' 11.26") 06/03/2024 2:37 PM EDT Body Mass Index 30.16 06/03/2024 2:37 PM EDT documented in this encounter Progress Notes * Silviano Mccarthy MD - 06/03/2024 2:52 PM EDT Images from the original note were not included. History of Present Illness Saulo Morales is a 43 year old male that presents for Acute (Pt had been sick about 3 weeks ago but since then he has been getting fevers off and on now for 2 weeks. ) Patient had been sick about 3 weeks ago (was covid negative on rapid test). Then started to feel ill again. Feels ok for periods of the day then mid afternoon feels feverish and "like he hits a wall." Usually happens when he is exercising or pushing it a bit. Did have night sweats last night. Persistent cough, non productive. + sick contacts. Physical Exam BP 126/86 (BP Site: Left Arm, BP Position: Sitting, BP Cuff Size: Regular) | Pulse 79 | Temp 36.1 C (97 F) (Tympanic) | Resp 16 | Ht 1.81 m (5' 11.26") | Wt 98.8 kg (217 lb 12.8 oz) | SpO2 98% | BMI 30.16 kg/m | BSA 2.23 m AAOx3 Normal affect, non ill-appearing but looks fatigued NCAT/ Neck supple - no palpable nodes Throat clear RRR Left lung with upper lobe rhonchi, no wheezing nor crackles Ext warm and well perfused No gross neuro deficits Normal gait No rashes seen I have reviewed most recent labs None Assessment and Plan Walking pneumonia - will treat. Azithromycin. Sounds like walking PNA from exam, sx, duration, and preceding illness.If no better will proceed CXR. Needs adequate rest. Avoid heavy exertional exercise. - XR CHEST 2 VIEWS Wrap-Up Prn - will get xray if sx worsen or recur Time: I spent a total of 20-29 minutes (exact time 22 mins) on the date of service in preparation, delivery, and documentation of the care provided to Saulo Morales excluding any time spent in the performance of separately billed services. documented in this encounter Plan of Treatment Upcoming Encounters Date Type Department Care Team (Late st Contact Info) Description 11/14/2024 10:20 AM EDT Office Visit [facility] [address] [place] [id number] Tremaine Rose DO [address] [place] [address] Scheduled Orders Name Type Priority Associated Diagnoses Orde r Schedule XR CHEST 2 VIEWS Medical Imaging Routine Walking pneumonia Ordered: 06/03/2024 Health Maintenance Due Date Last Done Comments [...] Not on filedocumented as of this encounter Visit Diagnoses Diagnosis Walking pneumonia- Primary Pneumonia, organism unspecified documented in this encounter Care Teams Saw Boss Relationship Specialty Start Date End Date Tremaine Rose DO [address] [place] [address] PCP - General Family Medicine 01/24/21 documented as of this encounter
--- OUTSIDE RECORDS SUMMARY | 2024-10-02 03:34 | External Medical Summary | Summary of Care ---
Author Name Unknown Organization [facility] Address [address] [place] [place] [address] Phone [phone] Care Team Providers Care Blood Or Blood Bank Technician Name Role Phone Tremaine Roseannie Primary Care Provider Encounter Details Date Type Department Care Team (Late st Contact Info) Description 09/19/2024 Population Health External Data Unspecified Department Allergies No known active allergiesdocumented as of this encounter (statuses as of 09/19/2024) Medications CPAP every night at bedtime . [...] mouth in the morning. 90 Tablet 3 09/12/2024 6:18 PM EST 4 Active Ozempic (2 MG/DOSE) 8 MG/3ML Subcutaneous Solution Pen-injector (Semaglutide (2 MG/DOSE))Indicat ions:Obesity, Class I, BMI 30.0-34.9 (see actual BMI) Inject 2 mg under the skin once a week. 9 mL 2 08/16/2024 8:01 AM EST Active documented as of this encounter (statuses as of 09/19/2024) Active Problems Problem Noted Date Diagnosed Date Moderate episode of recurrent major depressive d isorder 11/14/2023 FAM HX-DIABETES MELLITUS 01/09/2002 documented as of this encounter (statuses as of 09/19/2024) Resolved Problems Problem Noted Date Diagnosed Date Resolved Date Prediabetes 01/03/2022 12/07/2023 Overview: Per Prediabetes protocol documented as of this encounter (statuses as of 09/19/2024) Immunizations Name Administration Dates Next Due COVID-19 mRNA, LNP-s, No Pre serve, 2-Dose Series ([employer]) 07/17/2021,12/08/2020,11/14/2020 Seasonal Influenza, PF, 6 M & [...] No 03/13/2023 Does the household have a [facility] source of income? 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
--- OUTSIDE RECORDS SUMMARY | 2024-10-02 03:34 | External Medical Summary | Summary of Care ---
Author Name Unknown Organization [facility] Address [address] [place] [address] Phone [phone] Care Team Providers Care Clinical Project Leader Name Role Phone Rose Tremaine Lainezannie Primary Care Provider Reason for Visit * Reason Onset Date Comments FYI 04/03/2024 Encounter Details Date Type Department Care Team (Late st Contact Info) Description 04/03/2024 Telephone Nutrition & Weight Management, [facility] [address] [place] [address] Shari Gallegos PA-C [address] [place] [address] FYI Allergies No known active allergiesdocumented as [...] mRNA, LNP-s, No Pre serve, 2-Dose Series ([employer]) 07/17/2021,12/08/2020,11/14/2020 HEP B - Hepatitis B (Adole/H [...] your earliest convenience. Thank You, Maggie Benitez [facility] Nanny Caregiver III [facility] ([facility]) 05/09/2024, 12:00 PM * Telephone Encounter - Maggie Benitez PHARM Tech - 04/03/2024 11:59 AM EDT Please see my g message Thank You, Maggie Benitez [facility] Nanny Caregiver III [facility] ([facility]) 04/03/2024, 11:59 AM documented in this encounter Plan of Treatment Upcoming Encounters Date Type Department Care Team (Late st Contact Info) Description 11/14/2024 10:20 AM EDT Office Visit Family Practice [facility] [address] [place] [address] Tremaine Rose, [address] [place] [address] Health Maintenance Due Date Last Done Comments [...] filedocumented as of this encounter Care Teams Clinical Project Leader Relationship Specialty Start Date End Date Tremaine Rose DO [address] [place] [address] PCP - General Family Medicine 01/24/21 documented as of this encounter
--- OUTSIDE RECORDS SUMMARY | 2024-10-02 03:34 | External Medical Summary | Summary of Care ---
Author Name Unknown Organization [facility] Address [address] [place] [address] Phone [phone] Care Team Providers Care Continuity Clerk Name Role Phone Fredi Roser Eryn Primary Care Provider Reason for Visit * Reason Onset Date Comments Precert Approved 08/14/2024 OZEMPIC Encounter Details Date Type Department Care Team (Late st Contact Info) Description 08/14/2024 Telephone Nutrition & Weight Management, [facility] [address] [place] [address] Shari Gallegos PA-C [address] [place] [address] Precert Approved (OZEMPIC) Allergies No known active allergiesdocumented as of this encounter (statuses as of 09/04/2024) Medications CPAP every night at bedtime . [...] as of this encounter (statuses as of 09/04/2024) Active Problems Problem Noted Date Diagnosed Date Moderate episode of recurrent major depressive d isorder 11/14/2023 FAM HX-DIABETES MELLITUS 01/09/2002 documented as of this encounter (statuses as of 09/04/2024) Resolved Problems Problem Noted Date Diagnosed Date Resolved Date Prediabetes 01/03/2022 12/07/2023 Overview: Per Prediabetes protocol documented as of this encounter (statuses as of 09/04/2024) Immunizations Name Administration Dates Next Due COVID-19 mRNA, LNP-s, No Pre serve, 2-Dose Series ([employer]ol[employer]) 07/17/2021,12/08/2020,11/14/2020 HEP B - Hepatitis B (Adole/H igh Risk Ped, 11-15 yrs 09/08/2000 IPV - Polio Virus Vaccine (Inact) 11/02/1981,02/1981,1980 MMR-FAN - Measles/Mumps/Rubella/Varicella 10/06/1989,03/26/1982 PPD 04/29/2000 Seasonal Influenza, PF, 6 M & above, IM , (FluLaval or Fluzone) 11/14/2023,06/21/2022,06/01/2021, 020,10/21/2019,05/29/2018,05/24/2017 TD - Tetanus/Diptheria (ADULT) 05/13/1997 TDAP [...] 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 Type Date User Summary Attachment Precert 08/14/2024 10:48 AM Moustapha Lamar [facility] Authorization Submission - Note: [facility] Authorization Submission Submission Information: Medication: OZEMPIC 2 MG/DOSE (8 MG/3 ML) Portal used: [place] Insurance: [facility] Authorization #/[place]: [id number] * Telephone Encounter - Surinder Duckworth LPN [...] follows: Patient name: Saulo Morales ID number: [id number] BIN number: [id number] PCN number: [id number] Group number: none Subscriber name: Saulo Morales Primary or Secondary Insurance:Primary Medication: ozempic 8mg/3ml Reason for Request: prior auth required Pharmacy and phone number: [facility] [phone] Rx plan and phone number: [facility] [phone] Is this a new medication for the patient? No. How did the patient obtain the medication on the lastfill? It was covered last time on this same insurance. What alternative medications does the pharmacy have in stock?: none Thank you, Mi Victor [facility] Director Of Compliance III [facility] Pharm[facility] Services([facility]) 08/14/24 documented in this encounter Plan of Treatment Upcoming Encounters Date Type Department Care Team (Late st Contact Info) Description 11/14/2024 10:20 AM EDT Office Visit Family [facility] [address] [place] [address] Tremaine Rose DO [address] [place] [address] Health Maintenance Due Date Last Done Comments [...] filedocumented as of this encounter Care Teams Continuity Clerk Relationship Specialty Start Date End Date Tremaine Rose DO [address] [place] [address] PCP - General Family Medicine 01/24/21 documented as of this encounter
[2024-10-02 05:59] LABS: Basophils # (auto) 0.04 K/uL (0.00-0.20); Basophils % (auto) 0.3 %; Eosinophils # (auto) 0.02 K/uL (0.00-0.50); Eosinophils % (auto) 0.2 %; Hematocrit (blood only) 35.8 % (42.0-52.0); Hemoglobin 12.5 g/dl (14.0-18.0); Immature Granulocytes # (auto) 0.05 K/uL (0.01-0.20); Immature Granulocytes % (auto) 0.4 %; Lymphocytes # (auto) 0.97 K/uL (1.20-3.40); Lymphocytes % (auto) 7.7 %; Mean Corpuscular Hgb Conc 34.9 g/dL (32.0-36.0); Mean Corpuscular Volume 80.3 fL (80.0-100.0); Mean Platelet Volume 8.9 fL (9.4-12.4); Monocytes # (auto) 0.99 K/uL (0.11-0.59); Monocytes % (auto) 7.8 %; Neutrophils # (auto) 10.57 K/uL (1.40-6.50); Neutrophils % (auto) 83.6 %; Platelet Count 186 K/uL (130-400); RDW Coefficient of Variation 13.1 % (11.5-14.5); RDW Standard Deviation 36.8 fL (36.4-46.3); Red Blood Count 4.46 M/uL (4.70-6.10); White Blood Count 12.64 K/ul (4.8-10.8)
[2024-10-02 06:04] LABS: BUN Creatinine Ratio 13.6 (10-20); Calcium 7.9 mg/dl (8.6-10.3); Creatinine Clr Calc Pharmacy 110.7 ml/min; Magnesium 1.5 mg/dl (1.7-2.4); Potassium 4.1 mmol/L (3.5-5.1)
[2024-10-02 06:14] LABS: D Dimer 360 ug/L FEU (0-500)
[2024-10-02] MEDS: MAGNESIUM SULFATE / D5W 1 GM/100 ML BAG IV SCH (06:49)
[2024-10-02] MEDS: HYDROmorphone INJ 0.5 MG/0.5 ML SYR IV STA (06:50)
[2024-10-02] MEDS: FLUoxetine HCL 20 MG CAP PO SCH (08:05)
--- NOTE | 2024-10-02 08:40 | Electrocardiogram Report ---
Test Reason : Blood Pressure : */* mmHG Vent. Rate : 110 BPM Atrial Rate : 110 BPM P-R Int : 140 ms QRS Dur : 98 ms QT Int : 350 ms P-R-T Axes : 32 -22 25 degrees QTcB Int : 473 ms Sinus tachycardia Incomplete right bundle branch block Minimal voltage criteria for LVH, may be normal variant ( R in aVL ) Borderline ECG No previous ECGs available Confirmed by Misael Camarillo ([id number]) on 10/02/2024 8:39:53 AM Referred By: REFERRED SELF Confirmed By: Misael Camarillo
--- NOTE | 2024-10-02 09:08 | Electrocardiogram Report ---
Test Reason : Blood Pressure : */* mmHG Vent. Rate : 106 BPM Atrial Rate : 106 BPM P-R Int : 156 ms QRS Dur : 98 ms QT Int : 332 ms P-R-T Axes : 32 -20 17 degrees QTcB Int : 441 ms Sinus tachycardia Incomplete right bundle branch block Borderline ECG When compared with ECG of 01-Oct-2024 16:36, No significant change was found Confirmed by Misael Camarillo ([id number]) on 10/02/2024 9:08:40 AM Referred By: REFERRED SELF Confirmed By: Misael Camarillo
[2024-10-02] MEDS: diphenhydrAMINE 50 MG/ML VIAL IV STA ×2 (09:28→14:18)
[2024-10-02] MEDS: ONDANSETRON INJ 2 MG/ML 2 ML VIAL IV STA (09:28)
[2024-10-02] MEDS: KETOROLAC TROMETHAMINE 15 MG/ML VIAL IV STA (09:29)
--- NOTE | 2024-10-02 10:13 | Gastrointestinal Consultation ---
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 He did not complete the prescribed treatment at the time. He is declining repeat rectal examination at this time as he feels that it's unnecessary since he had a rectal exam in the ED. While he would likely benefit from colorectal surgery evaluation, at this time, consider treatment of the reported fissure with a topical lidocaine, adding powdered fiber supplementation daily, and I will review the CT results with radiology to see if there is any concern for a p erianal abscess not appreciated on exam as this could explain the chills/leukocytosis. May need to consider pelvic MRI depending on their input. In the interim, agree with continued hospitalist efforts for assessing for infection. 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 He comes in predominately because of rigors and chills. He had been having issues with his fissure he started taking MiraLAX past a couple of large bowel movements. CT scan did not show any definite pathology. Close examination of the anus does not show an obvious perirectal abscess. Reviewed with radiology did not suggest an abscess and did not feel that an MRI of the pelvis currently was required. May have had a transient bacteremia related to his fissure. Treat with antibiotics at present which blood cultures. Stool softener informed MiraLAX. Strongly recommend this patient consider colorectal surgery consult for lateral sphincterotomy. History of Present Illness Reason for Consultation: Rectal bleed, anal fissure Attending Physician: Padma Drummond MD History of Present Illness Patient is a 44 yo male with PMH of depression, hypertension, & anal fissure. He presented to the ED with rectal bleeding, shaking, & chills. He notes that he was having a hard bowel movement at 10 am and there was some associated bright red blood on the stool. He notes that in the afternoon, he began having abdominal discomfort, backache, shaking, chills, and rigors. He developed leg pain. He notes that he then made the decision to come to the ED. He has a history of a colonoscopy in [address] Ragland of [facility]. He had a normal colon and ileum. He was noted to have small internal hemorrhoids seen on anoscopy. He had a small posterior midline fissure on perianal exam. He notes he was given a topical ointment that was to be compounded at the pharmacy, but never actually picked that up to take it. He does not take fiber supplementation. In the ED yesterday he was noted to have an anal fissure at the 6:00 position that was tender to palpation and minimally enlarged internal hemorrhoids were seen. In the ED, the patient was hypotensive. He has a mild leukocytosis of 12,640. Viral PCR negative for respiratory illnesses. He is afebrile, but notes he continues with chills/rigors. He is currently on IV Unasyn. A CT abd/pelvis without contrast was unremarkable but made no comment of pelvic tissues. Of note, patient declined my request to perform a rectal examination noting he already had one performed. Allergies Allergy/AdvReac Type Severity Reaction Status Date / Time No Known Allergies Allergy Unverified 01/10/18 10:57 Home Medications Medication Instructions Recorded Confirmed Type fluoxetine 40 mg capsule 40 mg PO DAILY 10/01/24 10/01/24 History losartan 50 mg tablet 50 mg PO DAILY 10/01/24 10/01/24 History semaglutide 2 mg/dose (8 mg/3 mL) 2 mg subcut WK 10/01/24 10/01/24 History subcutaneous pen injector (Ozempic) Patient History Social History Smoking Status: Never smoker Hx Alcohol Use: Yes Alcohol type: wine Hx Substance Use: No Preferred Language: Barbadian Communication Ability: Effective Lung Puller Required: No Beliefs That Will Affect Care: None Current Living Situation: Spouse and Family Feels Safe at Home: Yes Safety Concerns: Feels Safe At This Time Assistive Devices: None Review of Systems Constitutional: + fever and + chills Gastrointestinal: + constipation and + blood in stools; no abdominal pain rectal pain Psychiatric: no problem reported Physical Exam Constitutional: well developed Respiratory: normal respiratory effort Gastrointestinal (Abdomen): normal bowel sounds, soft, nontender, no hepatosplenomegaly Patient decliend repeat rectal exam Psychiatric: Orientation: alert and oriented x 3 Results & Data Vital Signs (Past 12 Hours) Vital Signs Temp Pulse Pulse Pulse Resp BP BP 10/02/24 07:59 36.9 C 99 H 18 112/71 02/05/25 07:16 105 H 10/02/24 04:00 37.2 C 103 H 18 114/67 10/01/24 23:16 36.6 C 105 H 18 138/84 10/01/24 23:13 10/01/24 23:05 102 H 10/01/24 23:00 36.6 C 105 H 20 138/84 10/01/24 22:24 97 H 18 107/73 Pulse Ox O2 Del Method 10/02/24 07:59 93 Room Air 10/02/24 07:16 10/02/24 04:00 93 Room Air 10/01/24 23:16 97 Room Air 10/01/24 23:13 Room Air 10/01/24 23:05 10/01/24 23:00 97 Room Air 10/01/24 22:24 98 Room Air PG Care Time/CCT Total # of Minutes Spent Total Time Spent with Patient: Total time spent is greater than 50% in coordination of care (as documented) at patient's floor/unit and/or counseling patient: Coding Level of Care Code 89138 IN/OBS CONSULT LVL 4,60M Diagnoses Bright red rectal bleeding K62.5 Rectal pain K62.89 Anal fissure K60.2
[2024-10-02] MEDS: PANTOprazole 40 MG/10 ML SYR IV SCH (10:58)
[2024-10-02 11:24] LABS: Immature Retic Fraction 4.9 % (2.3-15.9); Reticulated Hemoglobin 32.6 pg (28.2-36.6); Reticulocyte % 1.41 % (0.50-2.00); Reticulocytes # 0.06 10^6/uL (0.020-0.100)
[2024-10-02 11:45] LABS: Iron 22 mcg/dl (35-175); Total Iron Binding Cap Calc 325 mcg/dl (250-450); Transferrin 232 mg/dl (200-360); Transferrin (FE) Percent Satur 7 % (20-50)
[2024-10-02 12:11] LABS: Folate (Folic Acid),Ser orPlas 10.31 ng/ml (>5.38)
[2024-10-02] MEDS: PSYLLIUM or GUAR GUM FIBER 4GM PACKET PO SCH (12:11)
[2024-10-02] MEDS: LIDOCAINE 4% CREAM 15 GM TUBE EXT SCH (12:11)
[2024-10-02] MEDS: PIPERACILLIN/TAZOBACTAM 4.5 GM/100 ML BAG IV STA (13:41)
--- NOTE | 2024-10-02 13:58 | Hospitalist Progress Note ---
Date of Service October 02, 2024 Assessment & Plan (1) Hypotension: Plan: Mr. Morales is a 44-year-old male with past medical history significant for depression, hypertension admitted due to BRBPR and rigors. Patient with a history of anal fissure with bleeding. Declining further rectal exam at this time 2/2 pain from ED exam. Discussion with over the phone notes that symptoms were very "sudden." Patient had recovered from flu about 7 days prior to this event. plan to continue IV abx and disucss with GI regarding advanced imaging #Acute blood loss anemia likely 2/2 anal fissure anemia labs pending repeat hh this afternoon #Sepsis potentially 2/2 bacterial translocation v abscess? #Anal fissure Leukocytosis at 12, hypotension resolved Procalcitonin 1.3; Respiratory BioFire negative Lyme screen and Anaplasma and Babesia screen negative. Possible sepsis from translocation of bacteria Blood cultures NGTD Continue with Zosyn Continue IVF Continue [facility] GI following: lidocaine to rectum prn, start metmucil #Headache ct head stable s/p morphine with hypotension noted, relief with ketorolac however will use sparingly replace mag continue with migraine cocktail #hypertension Hold losartan #Depression Continue fluoxetine DVT prophylaxis SCDs for now Admission and Anticipated Discharge Date Admission Date: October 01, 2024 Subjective Examined at bedside, patient with bilateral orbital headache Denies any bowel movement since admission States intermittent rigors, but less than day prior Denies any other localizing symptoms States that he would like to defer any other rectal exams 2/2 yesterday being painful Physical Exam Constitutional: ill appearing, tired gentleman Respiratory: normal respiratory effort, lungs clear to auscultation Cardiovascular: RRR, no murmur, no edema Gastrointestinal (Abdomen): normal bowel sounds, soft, nontender, no hepatosplenomegaly Results & Data Results & Data Vital Signs (Past 12 Hours) Vital Signs Temp Pulse Pulse Resp BP Pulse Ox O2 Del Method 10/02/24 11:32 36.9 C 92 H 18 121/74 91 Room Air 10/02/24 07:59 36.9 C 99 H 18 112/71 93 Room Air 10/02/24 07:16 105 H 10/02/24 04:00 37.2 C 103 H 18 114/67 93 Room Air Laboratory Results Short CBC 10/01/24 10/02/24 Range/Units 15:23 05:34 WBC 13.56 H 12.64 H (4.8-10.8) K/ul Hgb 15.0 12.5 L (14.0-18.0) g/dl Hct 42.6 35.8 L (42.0-52.0) % Plt Count 275 186 (130-400) K/uL BMP 10/01/24 10/02/24 15:23 05:34 Sodium 138 136 Potassium 3.9 4.1 Chloride 105 108 H Carbon Dioxide 24 22 BUN 19 15 Creatinine 1.11 1.10 Glucose 94 101 H Calcium 9.3 7.9 L Cardiac Enzymes 10/01/24 Range/Units 15:23 Total Creatine Kinase 82 (30-223) U/L Liver Function 10/01/24 Range/Units 15:23 Total Bilirubin 0.7 (0.2-1.0) mg/dl AST 25 (13-39) U/L ALT 40 (7-52) U/L Alkaline Phosphatase 60 (34-104) U/L Albumin 4.3 (3.4-5.0) gm/dl Urine 10/01/24 Range/Units 16:44 Urine Color Dark Yellow Urine Appearance Cloudy A (Clear) Urine pH 5.5 (4.5-7.5) Ur Specific [place] 1.029 (1.000-1.030) Urine Protein Trace H (Negative) Urine Glucose (UA) Negative (Negative) Medications Administered Home Medications Medication Instructions Recorded Confirmed Last Taken fluoxetine 40 mg capsule 40 mg PO DAILY 10/01/24 10/01/24 10/01/24 losartan 50 mg tablet 50 mg PO DAILY 10/01/24 10/01/24 10/01/24 semaglutide 2 mg/dose (8 mg/3 mL) 2 mg subcut WK 10/01/24 10/01/24 09/29/24 subcutaneous pen injector (Ozempic) Active Medications Generic Name Dose Route Start Last Admin Trade Name Freq PRN Reason Stop Dose Admin Fluoxetine HCl 40 mg 10/02/24 09:00 10/02/24 08:05 Fluoxetine Hcl 20 Mg Cap PO 11/01/24 08:59 40 mg DAILY ASAEL Administration Sodium Chloride 1,000 mls @ 125 mls/hr 10/01/24 23:30 10/02/24 07:22 Nss IV 10/02/24 23:29 125 mls/hr .Q8H ASAEL Administration Acetaminophen 1,000 mg in 100 mls @ 400 mls/hr 10/01/24 23:20 10/02/24 00:36 Ofirmev IV 10/04/24 23:19 Infused Q8H PRN Infusion Pain or Fever Pantoprazole Sodium 40 mg in 10 mls @ 5 mls/min 10/02/24 10:30 10/02/24 10:58 Protonix IV 11/01/24 10:29 5 mls/min BID ASAEL Administration Lidocaine 1 appln 10/02/24 11:00 10/02/24 12:11 Lidocaine 4% Cream 15 Gm Tube EXT 11/01/24 10:59 1 appln BID ASAEL Administration Psyllium Hydrophilic Mucilloid 4 gm 10/02/24 11:00 10/02/24 12:11 Psyllium Or Guar Gum Fiber 4gm Packet PO 11/01/24 10:59 4 gm QAM ASAEL Administration
[2024-10-02 14:05] LABS: A calco-baum cmplx NotReported Not Detected (NotDetected); Bact fragilis Not Reported Not Detected (NotDetected); Blood Culture Id Panel See PCR Comment (NotDetected); C auris Not Reported Not Detected (NotDetected); Calbicans Not Reported Not Detected (NotDetected); Candida glabrata Not Reported Not Detected (NotDetected); Candida krusei Not Reported Not Detected (NotDetected); Cneoformans/gatti Not Reported Not Detected (NotDetected); Cparapsilosis Not Reported Not Detected (NotDetected); E cloacae compx Not Reported Not Detected (NotDetected); Efaecalis Not Reported Not Detected (NotDetected); Efaecium Not Reported Not Detected (NotDetected); Enterobacterales Not Reported Not Detected (NotDetected); Escherichia coli Not Reported Not Detected (NotDetected); H influenzae Not Reported Not Detected (NotDetected); K aerogenes Not Reported Not Detected (NotDetected); Koxytoca Not Reported Not Detected (NotDetected); Kpneumoniae grp Not Reported Not Detected (NotDetected); Lmonocyt Not Reported Not Detected (NotDetected); N meningitidis Not Reported Not Detected (NotDetected); P aeruginosa Not Reported Not Detected (NotDetected); Proteus spp Not Reported Not Detected (NotDetected); Salmonella spp Not Reported Not Detected (NotDetected); Staph lugdunensis Not Reported Not Detected (NotDetected); Staph spp. Not Reported Not Detected (NotDetected); Staphaureus Not Reported Not Detected (NotDetected); Staphepi Not Reported Not Detected (NotDetected); Stenmaltophilia Not Reported Not Detected (NotDetected); Strep agal(GrpB) Not Reported Not Detected (NotDetected); Strep pneum Not Reported Not Detected (NotDetected); Strep pyog (GrpA) Not Reported Not Detected (NotDetected); Strep spp Not Reported DETECTED (NotDetected)
[2024-10-02] MEDS: BUTALBITAL/ACETAMIN/CAFFEINE TAB PO STA (14:17)
[2024-10-02] MEDS: MAGNESIUM SULFATE / D5W 1 GM/100 ML BAG IV ONE (14:18)
[2024-10-02 14:34] LABS: Streptococcus spp DETECTED (NotDetected)
[2024-10-02 14:41] LABS: Hematocrit (blood only) 35.4 % (42.0-52.0); Hemoglobin 12.1 g/dl (14.0-18.0)
[2024-10-02] MEDS ORDERED: VANCOMYCIN CONSULT ACTIVE PRN (14:43)
--- NOTE | 2024-10-02 15:13 | Pharmacy Report ---
Pharmacy PK ABX Note - Date of Service October 02, 2024 - Assessment and Plan Assessment * 44 year old M receiving vancomycin and Zosyn for treatment of bacteremia. (1 of 2 blood cultures are growing gram + cocci in chains) * leukocytosis present, procalcitonin 1.3, afebrile but presenting with chills/rigors. Day # 1 of antimicrobial therapy. Plan Vancomycin * Loading dose: 2250 mg IV x 1 * Maintenance dose: 1500 mg IV every 12 hours * Regimen is predicted to achieve target AUC/SACHA of 400-600 mg/L.hr * Random level will be ordered in the next 48-72 hours if vancomycin is continued. Pharmacy will continue to follow and will adjust dose/frequency as necessary. Thank you. Pharmacy has transitioned to AUC monitoring for vancomycin. AUC/SACHA is the preferred PK/PD target and is associated with decreased risk of nephrotoxicity compared to traditional trough targets.
[2024-10-02] MEDS: VANCOMYCIN HCL 2,250 MG in SODIUM CHLORIDE 0.9% 500 ML IV ONE (15:52)
[2024-10-02] MEDS: PIPERACILLIN/TAZOBACTAM 4.5 GM/100 ML BAG IV SCH (16:11)
[2024-10-02] MEDS: POLYETHYLENE (MIRALAX) 17 GM PACK PO SCH (16:20)
[2024-10-02] MEDS: BUTALBITAL/ACETAMIN/CAFFEINE TAB PO PRN (17:53)
[2024-10-02] MEDS: diphenhydrAMINE Capsule 25 MG CAP PO SCH (21:15)
[2024-10-02] MEDS: DOCUSATE SODIUM 100 MG CAP PO SCH (21:15)
[2024-10-03] MEDS: VANCOMYCIN HCL 1,500 MG in SODIUM CHLORIDE 0.9% 500 ML IV SCH (00:06)
[2024-10-03 06:56] LABS: Hematocrit (blood only) 34.1 % (42.0-52.0); Mean Corpuscular Hemoglobin 28.4 pg (25.0-34.0); Mean Corpuscular Hgb Conc 35.2 g/dL (32.0-36.0); Mean Corpuscular Volume 80.8 fL (80.0-100.0); Platelet Count 168 K/uL (130-400); RDW Coefficient of Variation 13.2 % (11.5-14.5); RDW Standard Deviation 38.4 fL (36.4-46.3); Red Blood Count 4.22 M/uL (4.70-6.10); White Blood Count 6.41 K/ul (4.8-10.8)
[2024-10-03 07:13] LABS: BUN Creatinine Ratio 8.9 (10-20); Calcium 8.4 mg/dl (8.6-10.3); Creatinine Clr Calc Pharmacy 100.5 ml/min; Phosphorus 2.7 mg/dl (2.5-4.9); Potassium 4.1 mmol/L (3.5-5.1)
--- NOTE | 2024-10-03 12:47 | Hospitalist Progress Note ---
Date of Service October 03, 2024 Assessment & Plan (1) Hypotension: Plan: Mr. Morales is a 44-year-old male with past medical history significant for depression, hypertension admitted due to BRBPR and rigors. Patient with a history of anal fissure with bleeding. Declining further rectal exam at this time 2/2 pain from ED exam. Discussion with over the phone notes that symptoms were very "sudden." Patient had recovered from flu about 7 days prior to this event. Notable improvement on IV abx Curbside with ID to discuss dispo planning. If no further growth on culture, plan to dispo tomorrow with augmentin TID for total of 14 days Likely dispo tomorrow #Acute blood loss anemia likely 2/2 anal fissure anemia labs pending repeat hh this afternoon #Sepsis potentially 2/2 bacterial translocation (abscess r/o) #Possible contaminant v early bacteremia, 1/4 strep anginous #Anal fissure Leukocytosis at 12, hypotension resolved Procalcitonin 1.3; Respiratory BioFire negative Lyme screen and Anaplasma and Babesia screen negative. Possible sepsis from translocation of bacteria Blood cultures NGTD Continue with Zosyn for additional day Plan to discharge with 14 days total of Augmentin tid GI following: lidocaine to rectum prn, start metmucil plan to d/c with external diltazem 2% TID to rectum #Headache ct head stable s/p morphine with hypotension noted, relief with ketorolac however will use sparingly replace mag continue with migraine cocktail #hypertension Hold losartan #Depression Continue fluoxetine DVT prophylaxis SCDs for now Admission and Anticipated Discharge Date Admission Date: October 01, 2024 Subjective NAEO Reports feeling improved overall with no new concerns Physical Exam Constitutional: WD/WN, vitals as above Respiratory: normal respiratory effort, lungs clear to auscultation Cardiovascular: RRR, no murmur, no edema Gastrointestinal (Abdomen): normal bowel sounds, soft, nontender, no hepatosplenomegaly Results & Data Results & Data Vital Signs (Past 12 Hours) Vital Signs Temp Pulse Pulse Resp BP BP Pulse Ox 10/03/24 11:28 36.9 C 88 18 112/75 92 10/03/24 10:31 80 10/03/24 07:38 36.7 C 87 18 101/69 94 10/03/24 02:49 36.9 C 86 17 121/78 95 O2 Del Method 10/03/24 11:28 Room Air 10/03/24 10:31 10/03/24 07:38 Room Air 10/03/24 02:49 Room Air Laboratory Results Home Medications Medication Instructions Recorded Confirmed Last Taken fluoxetine 40 mg capsule 40 mg PO DAILY 10/01/24 10/01/24 10/01/24 losartan 50 mg tablet 50 mg PO DAILY 10/01/24 10/01/24 10/01/24 semaglutide 2 mg/dose (8 mg/3 mL) 2 mg subcut WK 10/01/24 10/01/24 09/29/24 subcutaneous pen injector (Ozempic) Active Medications Generic Name Dose Route Start Last Admin Trade Name Freq PRN Reason Stop Dose Admin Acetaminophen/Butalbital/Caffeine 1 tab 10/02/24 17:34 10/03/24 10:45 Butalbital/Acetamin/Caffeine Tab PO 11/01/24 17:33 1 tab Q4H PRN Administration Headache Diphenhydramine HCl 50 mg 10/02/24 21:00 10/02/24 21:15 Diphenhydramine Capsule 25 Mg Cap PO 11/01/24 20:59 50 mg QPM ASAEL Administration Docusate Sodium 100 mg 10/02/24 21:00 10/03/24 08:26 Docusate Sodium 100 Mg Cap PO 11/01/24 20:59 100 mg BID ASAEL Administration Fluoxetine HCl 40 mg 10/02/24 09:00 10/03/24 08:26 Fluoxetine Hcl 20 Mg Cap PO 11/01/24 08:59 40 mg DAILY ASAEL Administration Acetaminophen 1,000 mg in 100 mls @ 400 mls/hr 10/01/24 23:20 10/02/24 00:36 Ofirmev IV 10/04/24 23:19 Infused Q8H PRN Infusion Pain or Fever Pantoprazole Sodium 40 mg in 10 mls @ 5 mls/min 10/02/24 10:30 10/03/24 08:22 Protonix IV 11/01/24 10:29 5 mls/min BID ASAEL Administration Piperacillin Sod/Tazobactam Sod 4.5 gm in 100 mls @ 25 mls/hr 10/02/24 16:30 10/03/24 08:23 Zosyn IV 10/04/24 16:29 25 mls/hr Q8H ASAEL Administration Protocol Lidocaine 1 appln 10/02/24 11:00 10/03/24 10:04 Lidocaine 4% Cream 15 Gm Tube EXT 11/01/24 10:59 Not Given BID ASAEL Polyethylene Glycol 17 gm 10/02/24 16:00 10/03/24 08:24 Polyethylene (Miralax) 17 Gm Pack PO 11/01/24 15:59 17 gm DAILY ASAEL Administration Psyllium Hydrophilic Mucilloid 4 gm 10/02/24 11:00 10/03/24 10:16 Psyllium Or Guar Gum Fiber 4gm Packet PO 11/01/24 10:59 Not Given QAM ASAEL Short CBC 10/02/24 10/03/24 Range/Units 14:24 06:26 WBC 6.41 (4.8-10.8) K/ul Hgb 12.1 L 12.0 L (14.0-18.0) g/dl Hct 35.4 L 34.1 L (42.0-52.0) % Plt Count 168 (130-400) K/uL BMP 10/03/24 06:26 Sodium 139 Potassium 4.1 Chloride 110 H Carbon Dioxide 24 BUN 11 Creatinine 1.24 Glucose 91 Calcium 8.4 L Medications Administered Home Medications Medication Instructions Recorded Confirmed Last Taken fluoxetine 40 mg capsule 40 mg PO DAILY 10/01/24 10/01/24 10/01/24 losartan 50 mg tablet 50 mg PO DAILY 10/01/24 10/01/24 10/01/24 semaglutide 2 mg/dose (8 mg/3 mL) 2 mg subcut WK 10/01/24 10/01/24 09/29/24 subcutaneous pen injector (Ozempic) Active Medications Generic Name Dose Route Start Last Admin Trade Name Freq PRN Reason Stop Dose Admin Acetaminophen/Butalbital/Caffeine 1 tab 10/02/24 17:34 10/03/24 10:45 Butalbital/Acetamin/Caffeine Tab PO 11/01/24 17:33 1 tab Q4H PRN Administration Headache Diphenhydramine HCl 50 mg 10/02/24 21:00 10/02/24 21:15 Diphenhydramine Capsule 25 Mg Cap PO 11/01/24 20:59 50 mg QPM ASAEL Administration Docusate Sodium 100 mg 10/02/24 21:00 10/03/24 08:26 Docusate Sodium 100 Mg Cap PO 11/01/24 20:59 100 mg BID ASAEL Administration Fluoxetine HCl 40 mg 10/02/24 09:00 10/03/24 08:26 Fluoxetine Hcl 20 Mg Cap PO 11/01/24 08:59 40 mg DAILY ASAEL Administration Acetaminophen 1,000 mg in 100 mls @ 400 mls/hr 10/01/24 23:20 10/02/24 00:36 Ofirmev IV 10/04/24 23:19 Infused Q8H PRN Infusion Pain or Fever Pantoprazole Sodium 40 mg in 10 mls @ 5 mls/min 10/02/24 10:30 10/03/24 08:22 Protonix IV 11/01/24 10:29 5 mls/min BID ASAEL Administration Piperacillin Sod/Tazobactam Sod 4.5 gm in 100 mls @ 25 mls/hr 10/02/24 16:30 10/03/24 08:23 Zosyn IV 10/04/24 16:29 25 mls/hr Q8H ASAEL Administration Protocol Lidocaine 1 appln 10/02/24 11:00 10/03/24 10:04 Lidocaine 4% Cream 15 Gm Tube EXT 11/01/24 10:59 Not Given BID ASAEL Polyethylene Glycol 17 gm 10/02/24 16:00 10/03/24 08:24 Polyethylene (Miralax) 17 Gm Pack PO 11/01/24 15:59 17 gm DAILY ASAEL Administration Psyllium Hydrophilic Mucilloid 4 gm 10/02/24 11:00 10/03/24 10:16 Psyllium Or Guar Gum Fiber 4gm Packet PO 11/01/24 10:59 Not Given QAM ASAEL
--- NOTE | 2024-10-03 13:09 | Gastroenterology Progress Note ---
Date of Service October 03, 2024 Assessment & Plan (1) Anal fissure: Plan: -Continue fiber supplement & bowel regimen -Discussed outpatient CRS eval -Await results of blood cultures (2) Iron deficiency: Plan: -Check Celiac panel -One dose of IV iron. Continue Miralax. -Will need outpatient EGD/colonoscopy for further evaluation. -Protonix on board. -Continue to monitor H/H. Admission and Anticipated Discharge Date Admission Date: October 01, 2024 Supervising Physician Co-Signing Physician Notes Patient feeling better. Less rectal pain. No further fevers or chills. 1 positive blood culture for strep anginosus, this can be a GI bug. Agree on usual that all the other cultures are negative. Potentially this was entry through his fissure. No clear abscess clinically or on CT scan. Patient however is iron deficient. Patient states he has had bleeding on and off from the rectum for years. This certainly could account for iron deficiency . However with iron deficiency chronic anal fissure inflammatory bowel disease such as Crohn's is on the differential. Patient will need an EGD colonoscopy to evaluate his iron deficiency. This can be done as an outpatient. Giving oral iron this gentleman with a fissure and issues with constipation was probably unkind. Therefore we will give him a dose of Venofer prior to discharge. Patient should stay on chronic MiraLAX therapy. Ultimately should see a colorectal surgery once his workup is been complete. Subjective Patient is a 44 yo male with an anal fissure. He notes a bowel movement since yesterday without pain or bleeding. He had 1/4 blood cultures return positive for GPCs in chains. It is unclear if this is real or a contaminant and further testing is underway. No GI bleeding. No acute GI issues at this time. H/H 12.0/34.1. Review of Systems Gastrointestinal: no abdominal pain, no constipation and no blood in stools Physical Exam Gastrointestinal (Abdomen): normal bowel sounds, soft, nontender, no hepatosplenomegaly Results & Data Results & Data Vital Signs (Past 12 Hours) Vital Signs Temp Pulse Pulse Resp BP BP Pulse Ox 10/03/24 11:28 36.9 C 88 18 112/75 92 10/03/24 10:31 80 10/03/24 07:38 36.7 C 87 18 101/69 94 10/03/24 02:49 36.9 C 86 17 121/78 95 O2 Del Method 10/03/24 11:28 Room Air 10/03/24 10:31 10/03/24 07:38 Room Air 10/03/24 02:49 Room Air PG Care Time/CCT Total # of Minutes Spent Total Time Spent with Patient: Total time spent is greater than 50% in coordination of care (as documented) at patient's floor/unit and/or counseling patient: Coding Level of Care Code 23855 SUB INP/OBS CARE 2/35MIN Diagnoses Anal fissure K60.2 Iron deficiency E61.1
[2024-10-03] MEDS: ACETAMINOPHEN 325 MG TAB PO PRN (13:31)
[2024-10-03 14:02] LABS: CMV IgM Antibody <30.00 AU/mL
[2024-10-03 14:16] LABS: EBV Nuclear Ag Antibody <18.00 U/mL
[2024-10-03] MEDS: IRON SUCROSE 200 MG in SODIUM CHLORIDE 0.9% 100 ML IV ONE (16:03)
[2024-10-03] MEDS: PANTOprazole 40 MG/10 ML SYR IV SCH (20:07)
[2024-10-04 06:38] LABS: Hematocrit (blood only) 36.7 % (42.0-52.0); Hemoglobin 12.8 g/dl (14.0-18.0); Mean Corpuscular Hemoglobin 27.9 pg (25.0-34.0); Mean Corpuscular Hgb Conc 34.9 g/dL (32.0-36.0); Mean Platelet Volume 8.8 fL (9.4-12.4); Platelet Count 192 K/uL (130-400); RDW Coefficient of Variation 12.9 % (11.5-14.5); RDW Standard Deviation 36.4 fL (36.4-46.3); Red Blood Count 4.59 M/uL (4.70-6.10); White Blood Count 7.86 K/ul (4.8-10.8)
[2024-10-04 06:58] LABS: BUN Creatinine Ratio 8.3 (10-20); Creatinine Clr Calc Pharmacy 103.9 ml/min; Potassium 4.1 mmol/L (3.5-5.1)
--- NOTE | 2024-10-04 07:33 | Discharge Summary ---
Discharge Summary Date of Service October 04, 2024 Principal Dx & Hospital Course #1 = Principal Diagnosis (1) Hypotension: Mr. Morales is a 44-year-old male with past medical history significant for depression, hypertension admitted due to BRBPR and rigors. Patient with a history of anal fissure with bleeding. Declining further rectal exam at this time 2/2 pain from ED exam. Discussion with over the phone notes that symptoms were very "sudden." Patient had recovered from flu about 7 days prior to this event. Notable improvement on IV abx Curbside with ID to discuss dispo planning. If no further growth on culture, plan to dispo tomorrow with Augmentin TID for total of 14 days. Patient reports feeling well overall on day of discharge. Cultures remain with 1/4 growth. Patient received IV venofer given risk for constipation with oral regimen. Ultimately patient educated on ways to help ease anal fissure, including topical Diltazem BID and strong bowel regimen. #Iron deficiency #Acute blood loss anemia likely 2/2 anal fissure s/p venofer #Sepsis potentially 2/2 bacterial translocation (abscess r/o) resolved #Possible contaminant v early bacteremia, 1/4 strep anginous #Anal fissure Leukocytosis at 12, hypotension resolved Procalcitonin 1.3; Respiratory BioFire negative Lyme screen and Anaplasma and Babesia screen negative. Possible sepsis from translocation of bacteria Blood cultures NGTD Continue with Zosyn for additional day Plan to discharge with 14 days total of Augmentin tid GI following: lidocaine to rectum prn, start metmucil d/c with external diltazem 2% BID to rectum #Headache resolved ct head stable s/p morphine with hypotension noted, relief with ketorolac however will use sparingly replace mag continue with migraine cocktail #hypertension Hold losartan, resume when BP > 130 #Depression Continue fluoxetine Notes For Next Care Provider Follow up Iron deficiency Anemia, s/p IV venofer x 10/03; avoid PO supplement iso constipation Celiac Panel pending Medication Changes From Visit Hold Losartan Start topical Diltazem BID to anus Continue miralax daily Start Augmentin TID Admission HPI Per Admitting Provider 44-year-old male with past medical history significant for depression, hypertension, presents with rectal bleed ,abdominal discomfort, low back pain and shaking chills. Patient says he was somewhat constipated and had a hard bowel movement around 10:00am in the morning associated with rectal bleed. After that he was doing okay. Had episodes of constipation and rectal bleeds in the past. Around 2 PM suddenly started having abdominal discomfort ,backache and shaking chills and rigors. He has to put on a blanket. During the episode he was feeling short of breath. Was feeling nauseous. And when the symptoms started he was having a lot of leg pains. He took Motrin at 2:15 PM. As the symptoms started suddenly and has was not feeling well came to the ER. On the way to the hospital he felt somewhat lightheaded. In 2017 patient had exploratory laparotomy with removal of foreign body from small bowel and repair of small bowel perforation and umbilical hernia repair and since then patient thinks his bowel movements are changed. Gets constipated on and off. Last was constipated took MiraLAX and after that had a bowel movement and had small blood in the stool at that time. Patient had colonoscopy in 2021 for rectal bleeding and showed normal colon. Normal ileum. Small internal hemorrhoids seen on anoscopy. Also small acute appearing posterior midline fissure seen on perianal exam at that time. Today in the ER rectal exam was done by ER and found to have an anal fissure at 6 o'clock position and was significantly tender to palpation and minimally enlarged internal hemorrhoids seen. In the ER patient became hypotensive requiring aggressive fluid bolus. With the fluids blood pressure improved. Currently blood pressure is okay. Abdominal pain and back pain is better. Currently denies chest pain. No shortness. No fevers. Was having headache when he came in that is improved now. No neck pain. During the episode nose was runny. No cough. Currently resting comfortably. Past medical history. As mentioned above Past surgical history. Colonoscopy. Exploration of abdomen due to small wire causing a perforation small bowel, no bowel reconstruction needed. Social history. . Quit smoking 2018. Alcohol occasional. No drug use. Family history. Paternal grandfather had diabetes and renal failure. Father had pituitary tumor status post removal. Admission Exam Per Admitting Provider General- Not in acute distress. Head- atraumatic Eyes- PERRL. ENT- oropharynx clear Neck- supple, no JVD. Lungs- clear to auscultation no wheezing or crackles. Heart- regular rate and rhythm; no murmur, no gallop. Abdomen- normal bowel sounds, soft, nontender, no distension Extremities- no pretibial edema, no erythema seen Neuro- alert, oriented PERRL, no facial palsy; no dysarthria; moves extremities Discharge Exam Constitutional WD/WN, vitals as above Respiratory normal respiratory effort, lungs clear to auscultation Cardiovascular RRR, no murmur, no edema Gastrointestinal (Abdomen) normal bowel sounds, soft, nontender, no hepatosplenomegaly Updated Medication List Medication Instructions Recorded Confirmed Type fluoxetine 40 mg capsule 40 mg PO DAILY 10/01/24 10/01/24 History losartan 50 mg tablet 50 mg PO DAILY 10/01/24 10/01/24 History semaglutide 2 mg/dose (8 mg/3 mL) 2 mg subcut WK 10/01/24 10/01/24 History subcutaneous pen injector (Ozempic) Diltiazem 2% Rectal Ointment 1 1 bead AL BID #1 tube 10/04/24 Rx tube ointment amoxicillin 875 mg-potassium 1 tab PO Q8H #36 tabs 10/04/24 Rx clavulanate 125 mg tablet lidocaine 4 % topical cream 1 applic EXT BID #15 grams 10/04/24 Rx (Anecream) polyethylene glycol 3350 17 gram 17 g PO DAILY 30 days #30 ea 10/04/24 Rx oral powder packet (Miralax) Hospital Stay Data Consultations 10/01/24 20:52 ED Decision to Admit Stat 10/02/24 08:00 Consult Gastroenterology Routine Diagnostic Imagining Performed 10/01/24 17:21 CT abd pelvis IV con only Stat 10/01/24 19:03 CT head/brain wo con Stat Pending Results Patient Have Any Pending Studies at Discharge: No Discharge Instructions Given to Patient (Per Discharging Provider) You came to the hospital due to chills and rectal bleeding. You were noted to have an anal fissure and signs of early infection. You were treated with fluids and IV antibiotics. There was concern for possible early bacteria in the blood given findings of one positive blood culture. You will continue a course of antibiotics: -Augmentin 875mg three times a day (breakfast, lunch, dinner)--continue until all tablets are complete It is recommended you start a probiotic during this time It is important to start therapies to help your anal fissure. An anal fissure is often caused by passing a hard stool which can tear the delicate skin just inside the anus, leaving a small cut, causing bleeding and pain. The other likely cause is tightening of the anus (spasms), which some people have due to increased muscle tone (sphincter) in the anus. This could explain the chronicity of your fissure. It is important to treat your problem of hard stools/constipation first. A diet that is high in fiber and fluids is essential to naturally soften and bulk the stools, making them easier to pass comfortably. Also avoid sitting on the toilet for too long and limit the time to five minutes. You were also noted to be iron deficient and received a unit of iron though the IV as oral iron can lead to constipation. Please discuss further iron deficiency work up with your PCP and [facility]. Medications: -Please hold your Losartan until your systolic blood pressure is greater than 130 or as directed by your PCP * Take your blood pressure at the same time every day (in the morning . * Take at least two readings, 1 or 2 minutes apart * Keep a blood pressure log to share with your PCP -Please start Miralax daily to aid with softening stools and preventing constipation -Please use topical lidocaine as needed for pain and tenderness of the area -Please start topical diltiazem every 12 hours as follows: ~Apply a pea-sized amount to the skin on the outside of the anus twice a day. Do not rub internally or onto the fissure itself. Do not rub it in completely; let it soak in by itself. Please continue the treatment (even if the pain goes away) until the fissure heals. Keep your follow up with your Gastroenterology Total Time Total Time Spent Total Time Spent (In Minutes): 45
[2024-10-04 08:15] VITALS: BP 120/80; PULSE 78; RESP 16; TEMP 98.2; O2SAT 94
[2024-10-04] MEDS: AMOXICILLIN/CLAVULANATE 875 MG TAB PO SCH (08:38)
[2024-10-04 12:46] LABS: A calco-baum cmplx NotReported Not Detected (NotDetected); Bact fragilis Not Reported Not Detected (NotDetected); Blood Culture Id Panel PCR Panel Negative (NotDetected); C auris Not Reported Not Detected (NotDetected); Calbicans Not Reported Not Detected (NotDetected); Candida glabrata Not Reported Not Detected (NotDetected); Candida krusei Not Reported Not Detected (NotDetected); Cneoformans/gatti Not Reported Not Detected (NotDetected); Cparapsilosis Not Reported Not Detected (NotDetected); E cloacae compx Not Reported Not Detected (NotDetected); Efaecalis Not Reported Not Detected (NotDetected); Efaecium Not Reported Not Detected (NotDetected); Enterobacterales Not Reported Not Detected (NotDetected); Escherichia coli Not Reported Not Detected (NotDetected); H influenzae Not Reported Not Detected (NotDetected); K aerogenes Not Reported Not Detected (NotDetected); Koxytoca Not Reported Not Detected (NotDetected); Kpneumoniae grp Not Reported Not Detected (NotDetected); Lmonocyt Not Reported Not Detected (NotDetected); N meningitidis Not Reported Not Detected (NotDetected); P aeruginosa Not Reported Not Detected (NotDetected); Proteus spp Not Reported Not Detected (NotDetected); Salmonella spp Not Reported Not Detected (NotDetected); Staph lugdunensis Not Reported Not Detected (NotDetected); Staph spp. Not Reported Not Detected (NotDetected); Staphaureus Not Reported Not Detected (NotDetected); Staphepi Not Reported Not Detected (NotDetected); Stenmaltophilia Not Reported Not Detected (NotDetected); Strep agal(GrpB) Not Reported Not Detected (NotDetected); Strep pneum Not Reported Not Detected (NotDetected); Strep pyog (GrpA) Not Reported Not Detected (NotDetected); Strep spp Not Reported Not Detected (NotDetected)
[2024-10-06 04:32] LABS: Babesia microti DNA Not Detected (Not Detected)
[2024-10-08 02:52] LABS: IgA Serum 114 mg/dL (47-310); Tis Trans IgA <1.0 U/mL
== END 2024-10-04 09:34 | disposition home or self-care (01) | DRG 872 ==
LOC: ED 15:09 → 4W 21:53 → 3E 10-03 15:45